=== PATIENT | female | born 1945 | race Caucasian/White ===

== ENCOUNTER 2021-11-14 11:15 | Outpatient (CLI) | payer MEDICARE, SELFPAY ==
--- OUTSIDE RECORDS SUMMARY | 2021-10-17 09:14 | XMS_ITS | Continuity of Care Document ---
:1945 Author Care Team Providers Name Role Phone NAKUL Yen Attending Physician NAKUL Yen Primary Care Physician Allergies, Adverse Reactions, Alerts Allergen Type Severity Reaction Last Updated Verified Status Penicillin Allergy Unknown childhood March Yes Active reaction 2020 Social History Smoking Status Status Start Date End Date Date of Observat ion Never smoked tobacco March 2:34pm (finding) Observation Status Observation Response Date of Response Nonsmoker July 26, 2017 1:34 pm Does not use illicit drugs July 26 1:34pm Rarely consumes alcohol July 26, 2017 1:34pm Additional Data Assigned Sex Female Problems Active Problems Medical Problem Onset Date Status Hypertension Active Hypercholesteremia Active Osteopenia Active Osteoarthritis Active Tinnitus Active Hiatal hernia with GERD Active Plantar fasciitis Active CAD (coronary artery disease) Active Venous insufficiency Active Iron deficiency anemia Resolved Urinary frequency Active Memory loss Active Thyroid nodule Active History of bilateral cataract Active extraction S/P section 1974 Active S/p total knee replacement, bilateral 2007 Ac tive S/P tonsillectomy and adenoidectomy Acti ve S/P tubal ligation Active History of colonoscopy Active Inactive/Resolved Problems Medical Problem Onset Date Status history of thyroid biopsy Resolved Medications Medication Status Dose Units Route Directions Qty Days Start End Ins tructions Date Date Acetaminophen Active 650 MG PO (Tylenol 8 Hour Arthritis) 650 Mg TAB Atorvastatin Active 40 MG PO Bedtime 90 Decembe Calcium r 2020 9:49am Calcium/Vitam Active 1 TAB PO Daily 100 in D (Calcium Carbonate/Vit dorsey D) 600 Mg/400 Unit TAB Clindamycin Active 2 CAP PO Once as 4 May Take 2 capsules approximately 1 hr prior to dental Hcl needed 2018 9:47am Cyclosporine Active 1 DROP BOTH Twice A Day 60 (Restasis) EYES 0.05 % EMU Cyclosporine Active (Ophth) (Restasis Multidose) 0.05 % EMU Donepezil Active Hydrochloride Meloxicam Active 7.5 MG PO Daily y 2021 11:33am Noxrk-6-Kitn Active 1200 MG PO Daily 100 Ethyl Esters (Fish Oil) 1,200 Mg CAP Omeprazole Active 40 MG PO Daily May 13, 2021 3:38pm Tolterodine Active 4 MG PO Daily Tartrate y , (Tolterodine 2021 Tartrate Er) 2:59pm 4 Mg CAP Vitamin E Active 400 UNIT OR Atorvastatin Disconti 40 MG PO Bedtime January Decemb Calcium nued , er 2019, 1:28pm 2020 9:49am Atorvastatin Disconti 40 MG PO Bedtime Octobe Due for follow Calcium nued er r up and repea t , , labs. 2019 2019 6:27am 1:28pm Atorvastatin Disconti 40 MG PO Bedtime November Calcium nued , theresa 2018, 10:09am 2019 6:27am Atorvastatin Disconti 40 MG PO Bedtime November Follow-up labs Calcium nued , , needed for 2018 2018 future 12:57pm 10:09a refills. m Atorvastatin Disconti 40 MG PO Bedtime October F ollow-up labs Calcium nued , , needed for 2018 2018 future 8:01am 12:57p refills. m Atorvastatin Disconti 40 MG PO Bedtime October Calcium nued , 2017 4:01pm 8:01am Atorvastatin Disconti 40 MG PO Bedtime October Calcium nued 2017 4:00pm 4:01pm Atorvastatin Disconti 40 MG PO Bedtime 22 November Calcium nued 2017 4:00pm Clindamycin Disconti 2 CAP PO Once as July [place] e 2 capsules approximately 1 hr prior to dental Hcl nued needed , , procedure. 2017 2018 10:47am 9:47am Clindamycin Disconti 300 MG PO Three Times 14 August Hcl nued A Day as 2017 10:47a m Covid-19 Disconti 30 MCG IM Once 1 b (Sars-Cov-2) nued r 30, er Mrna Vir 2020, (Pfizer-Biont 1:56pm 2020 ech Covid-19) 1:59pm 30 Mcg/0.3 Ml INJ Donepezil Disconti 5 MG PO Every November Hydrochloride nued Morning , 2017 2:26pm 10:09a m Donepezil Disconti 5 MG PO Bedtime November Hydrochloride nued , 2017 2:24pm 2:26pm Ferrous Disconti 325 MG PO Daily 100 Octobe Sulfate nued r 2019 10:18a m Influenza Disconti 0.7 ML IM Once Januaryobe Virus Vac nued , r Split High 2019, (Fluzone 10:52am 2019 High-Dose Pf 12:09p 2019 0.7 Ml) m 1 Inj INJ Influenza Disconti 0.5 ML IM Once Januaryobe Virus Vaccine nued , r (Fluzone 2017, High-Dose (65 1:02pm 2018 Yrs And 1:10pm Older) ) 1 Inj INJ Influenza Disconti 0.5 ML IM Once Januaryobe Virus Vaccine nued , r 7th, Split 2018 2018 (Fluzone 11:28am 11:30a High-Dose Pf m 2018 0.5 Ml) 1 Inj INJ Influenza Disconti 0.5 ML IM Once 1 Novemb Virus Vaccine nued r 10th, er Split 2017 01, (Fluzone 9:05am 2016 High-Dose Pf 9:08am 2016 0.5 Ml) 1 Inj INJ Meloxicam Disconti 7.5 MG PO Daily 90 Novemua nued r 10th, ry 2020, 2:47pm 2021 11:33a m Meloxicam Disconti 7.5 MG PO Daily January Novemb nued , er 2020 01, 10:53am 2020 2:47pm Meloxicam Disconti 7.5 MG PO Daily November Octobe nued , r 2019, 7:53am 2019 10:53a m Meloxicam Disconti 7.5 MG PO Daily 90 ua [place] nued y 2019 9:47am 7:53am Meloxicam Disconti 7.5 MG PO Daily 90 Septemb Februa nued er ry , 2018 7:52am 9:47am Meloxicam Disconti 7.5 MG PO Daily 90 Februar Septem nued y , theresa 2019 01, 2:34pm 2018 7:52am Meloxicam Disconti 7.5 MG PO Daily 30 April Februa nued , ry 2018, 1:56pm 2018 2:34pm Omeprazole Disconti 40 MG PO Daily Januaryuar Est formerly [facility] care nued , y for further 2020 18, refills. 11:29am 2021 3:38pm Omeprazole Disconti 40 MG PO Daily Januaryobe nued , r 2019, 10:53am 2020 11:29a m Omeprazole Disconti 40 MG PO Daily Octoberobe nued , r 2019, 6:42am 2019 10:53a m Omeprazole Disconti 40 MG PO Daily October nued , 2018 8:47am 6:42am Omeprazole Disconti 40 MG PO Daily October nued , 2017 4:01pm 8:47am Omeprazole Disconti 40 MG PO Daily October nued , 2017 4:00pm 4:01pm Omeprazole Disconti 40 MG PO Daily 22 November nued 2017 4:00pm Oxybutynin Disconti 10 MG PO Daily October Chloride nued , , (Oxybutynin 2017 2018 Chloride Er) 4:01pm 3:48pm 10 Mg TAB Oxybutynin Disconti 10 MG PO Daily October Chloride nued , , (Oxybutynin 2017 2017 Chloride Er) 4:00pm 4:01pm 10 Mg TAB Oxybutynin Disconti 10 MG PO Daily 22 November Chloride nued , (Oxybutynin 2017 Chloride Er) 4:00pm 10 Mg TAB Terbinafine Disconti 250 MG PO Daily April Hcl nued , 2018 1:56pm 10:09a m Tetanus-Dipht Disconti 0.5 ML IM Once 1 [facility] Toxoids nued r 3rd, er (Td 2020 3rd, (Tetanus/Diph 10:57am 2020 theria 11:24a Toxoid) 1 Ml m INJ Tolterodine Disconti 4 MG PO Daily Tartrate nued r 10th, ry (Tolterodine 2020 12, Tartrate Er) 2:47pm 2021 4 Mg CAP 2:59pm Tolterodine Disconti 4 MG PO Daily January Tartrate nued , er (Tolterodine 2020 01, Tartrate Er) 10:53am 2020 4 Mg CAP 2:47pm Tolterodine Disconti 4 MG PO Daily November Tartrate nued , r (Tolterodine 2019, Tartrate Er) 11:41am 2019 4 Mg CAP 10:53a m Tolterodine Disconti 4 MG PO Daily November Tartrate nued y , 5th, (Tolterodine 2019 2019 Tartrate Er) 4:26pm 11:41a 4 Mg CAP m Tolterodine Disconti 4 MG PO Daily Tartrate nued r 4th, ry (Tolterodine 2018 08, Tartrate Er) 5:58am 2019 4 Mg CAP 4:26pm Tolterodine Disconti 4 MG PO Daily November Tartrate nued , er (Tolterodine 2018 07, Tartrate Er) 4:09pm 2018 4 Mg CAP 5:58am Zoster Disconti 50 MCG IM Once 1 [facility] Vaccine nued r , er Recombinant 2018, Adj 12:51pm 2018 (Shingrix) 50 12:54p Mcg/0.5 Ml m INJ Zoster Disconti 50 MCG IM Once November Vaccine nued , , Recombinant 2018 2018 Adj 10:44am 10:48a (Shingrix) 50 m Mcg/0.5 Ml INJ Immunizations Immunization Event Date Not Given Dose Hair Cutter Lot Vac cine Reason Number Number Informatio n Statement (VIS) Deta geovany COVID-19 Pfizer July 20, 1 PFIZER-BIONTFarmeto [id number] 2020 COVID-19 Pfizer August 10, 2 PFIZER-BIONTECH [id number] 2020 COVID-19 Pfizer February 26 PFIZER-BIO [id number] 2020 Herpes Zoster January 312008 Influenza February 24 Sanofi [id number] 2016 Influenza January 25 SANOFI [id number] 2017 Influenza January 30 SANOFI [id number] 2018 Influenza January 27 SANOFI [id number] 2019 Prevnar Adult July 052014 Pneumovax Adult February 242011 Shingrix December 16 GSK CONSUM [id number] 2018 Shingrix March 27 GSK CONSUM [id number] 2018 Tetanus/Diptheri March 26 MASS BIOLO [id number] a 2020 Tdap January 31 (adolescent/adul 2008 t) Advance Directives Advance Directive Response Recorded Date/Time Has patient completed a No March 28 2:34pm Health Care Directive? Insurance Providers Guarantor Santiago Bradley Address [address] [facility] [address] Contact Info. Home Phone: Payer Policy Id Coverage Id Subscriber's Subscriber Id Effective E xpiration Name Date Date Blue [id number] Santiago Bradley Medicare Ppo [id number] Plan of Treatment Future Tests Future scheduled test information is unavailable Pending Tests Pending diagnostic test information is unavailable Future Visits Future appointment information is unavailable Referrals to Other Providers Referral information is unavailable Future Procedures Procedure Name Scheduled Date STRESS Lexiscan PRAKASH Bilat Mammo Scrn Future Medications Future medication information is unavailable Patient Instructions Patient instructions are unavailable
--- NOTE | 2021-11-14 11:30 | CRLHL7_ITS ---
For Patients: As a result of the Century Cures Act, medical imaging exams and procedure reports are released immediately into your electronic medical record. You may view this report before your referring provider. If you have questions, please contact your health care provider. BILATERAL MAMMOGRAM WITH COMPUTER-AIDED DETECTION AND TOMOSYNTHESIS TECHNIQUE: CC and MLO views were obtained. These mammographic images have been obtained using full-field digital technique. These mammographic images were interpreted with the benefit of computer-aided detection. Breast Tomosynthesis was used in this interpretation. COMPARISON FILM: 08/23/2020, 01/17/2019, 04/29/2016. FINDINGS: There are scattered areas of fibroglandular density IMPRESSION: There is no radiographic evidence for malignancy. ASSESSMENT: BI-RADS Category 1: Negative RECOMMENDATION: Routine screening mammogram in 1 year. A lay language report of this examination will be provided to the patient. Aramis Orourke M.D. Diagnostic Radiologist [email or web address] TALA/tani freire/Dictated by: Aramis Orourke MD @ 11/14/2021 12:47:00 PM (Electronically Signed)
== END 2021-11-14 11:16 | disposition home or self-care (01) ==
LOC: MAMMO 11:15
PROVIDERS: PCP Physician Assistant Medical; Visit Provider Physician Assistant Medical
DX: Z12.31 Encounter for screening mammogram for malignant neoplasm of breast (principal)
CPT/HCPCS: 77063; 77067

== ENCOUNTER 2021-12-04 10:41 | Outpatient (CLI) | payer MEDICARE, SELFPAY ==
--- NOTE | 2021-12-04 11:00 | CRLHL7_ITS ---
For Patients: As a result of the Cures Act, medical imaging exams and procedure reports are released immediately into your electronic medical record. You may view this report before your referring provider. If you have questions, please contact your health care provider. INDICATION: NON-TOXIC SINGLE THYROID NODULE COMPARISON: 12/04/2020, 10/24/2020 TECHNIQUE: Jackson scale and color Doppler images were acquired of the thyroid gland. FINDINGS: The thyroid gland demonstrates diffusely heterogeneous echogenicity and has a lobular outer contour. The right lobe measures 5.7 x 2.1 x 1.8 cm and the left lobe measures 5.0 x 2.1 x 1.8 cm in size. The isthmus measures 8 millimeters. Multiple bilateral nodules are again noted bilaterally. The previously noted cystic nodule is no longer present status post aspiration previously. Stable heterogeneously hypoechoic nodules left thyroid lobe measuring 1.7 x 1.4 x 1.2 cm and 1.0 x 1.3 x 1.4 cm. Stable heterogeneously hypoechoic nodule right thyroid lobe measuring 2.6 x 1.6 x 2.3 cm. The color Doppler images demonstrate normal vascularity. There is no evidence of cervical lymphadenopathy or parathyroid mass. IMPRESSION: Stable bilateral nodules. Dictated by Aramis Orourke MD @ 12/04/2021 12:54:02 PM (Electronically Signed)
== END 2021-12-04 10:42 | disposition home or self-care (01) ==
LOC: US 10:42
PROVIDERS: PCP Physician Assistant Medical; Visit Provider Surgery
DX: E04.1 Nontoxic single thyroid nodule (principal)
CPT/HCPCS: 76536

== ENCOUNTER 2022-03-26 12:30 | Outpatient (CLI) | payer MEDICARE, SELFPAY | END 2022-03-26 12:31 | disposition home or self-care (01) | LOC: OP CLINIC 12:31 | PROVIDERS: PCP Physician Assistant Medical; Visit Provider Surgery | DX: Z12.11 Encounter for screening for malignant neoplasm of colon (principal); K63.5 Polyp of colon; K64.8 Other hemorrhoids; K52.9 Noninfective gastroenteritis and colitis, unspecified; K64.4 Residual hemorrhoidal skin tags; K57.30 Diverticulosis of large intestine without perforation or abscess without bleeding; Z86.010 Personal history of colon polyps; Z80.0 Family history of malignant neoplasm of digestive organs | CPT/HCPCS: 45380; 45385; 88305; 99153; J1200; J2250; J3010 ==

== ENCOUNTER 2022-04-01 09:45 | Outpatient (CLI) | payer MEDICARE, SELFPAY ==
[2022-04-01 14:32] LABS: Albumin* 4.3 g/dL (3.3-5.0); Chloride* 110 mmol/L (96-114); Potassium* 4.4 mmol/L (3.6-5.1); Sodium* 145 mmol/L (135-149)
[2022-04-01 14:34] LABS: Cholesterol* 170 mg/dL (90-199); Creatinine* 0.6 mg/dL (0.5-1.5); Estimated Glomerular Filt Rate 94 ml/min
[2022-04-01 14:35] LABS: Alanine Aminotransferase* 19 U/L (4-35); Alkaline Phosphatase* 70 U/L (40-150); Aspartate Amino Transferase* 31 U/L (12-35); Bilirubin Total* 0.9 mg/dL (0.1-1.5); Blood Urea Nitrogen* 16 mg/dL (7-30); Calcium* 9.6 mg/dL (8.4-10.6); Carbon Dioxide* 30 mmol/L (20-32); Glucose* 87 mg/dL (60-115); Triglycerides* 105 mg/dL (40-149)
[2022-04-01 14:36] LABS: HDL Cholesterol* 65 mg/dL (>=50); LDL Cholesterol Calculated 84 mg/dL (<100)
== END 2022-04-01 09:46 | disposition home or self-care (01) ==
PROVIDERS: PCP Physician Assistant Medical; Visit Provider Physician Assistant Medical
DX: E78.00 Pure hypercholesterolemia, unspecified (principal); I10 Essential (primary) hypertension
CPT/HCPCS: 80053; 80061

== ENCOUNTER 2022-08-06 14:01 | Outpatient (REF) | payer MEDICARE, SELFPAY ==
[2022-08-06 14:42] LABS: Basophils Percent Auto 0.5 % (0.0-3.0); Eosinophils Percent Auto 2.1 % (0.0-7.0); Hematocrit 43.3 % (33.0-51.0); Immature Granulocytes Pct Auto 0.7 %; Lymphocytes Percent Auto 32.9 % (20-44); Mean Corpuscular HGB Conc 32 gm/dL (32-36); Mean Corpuscular Hemoglobin 30 pg (26-34); Mean Corpuscular Volume 92 fL (80-100); Monocytes Percent Auto 7.1 % (0.0-11.0); Neutrophils Percent Auto 56.7 % (42.0-72.0); Platelet Count* 191 K/uL (140-440); RDW Coefficient of Variation % 13.3 % (11.5-15.5); Red Blood Count 4.72 m/uL (4.00-5.20); White Blood Count* 4.34 K/uL (4.50-11.00)
[2022-08-06 14:44] LABS: Slide Review Reflex No
[2022-08-06 14:47] LABS: Chloride* 110 mmol/L (96-114)
[2022-08-06 14:48] LABS: Sodium* 142 mmol/L (135-149)
[2022-08-06 14:49] LABS: Potassium* 3.7 mmol/L (3.6-5.1)
[2022-08-06 14:51] LABS: Carbon Dioxide* 28 mmol/L (20-32); Creatinine* 0.7 mg/dL (0.5-1.5); Estimated Glomerular Filt Rate 90 ml/min
[2022-08-06 14:52] LABS: Alanine Aminotransferase* 22 U/L (4-35); Alkaline Phosphatase* 56 U/L (40-150); Aspartate Amino Transferase* 30 U/L (12-35); Blood Urea Nitrogen* 17 mg/dL (7-30); Calcium* 9.2 mg/dL (8.4-10.6); Glucose* 90 mg/dL (60-115)
[2022-08-06 15:03] LABS: C Reactive Protein* < 0.5 mg/dL (0.5-1.0)
[2022-08-06 15:42] LABS: Vitamin B12* 758 pg/mL (243-894)
[2022-08-06 16:50] LABS: Ammonia* < 9.0 umol/L (13.1-30.0)
[2022-08-08 19:01] LABS: Folate, Serum >22.3 ng/mL (>=5.9)
== END 2022-08-06 14:02 | disposition home or self-care (01) ==
LOC: NPINS 14:01
PROVIDERS: PCP Physician Assistant Medical; Visit Provider Psychiatry & Neurology Neurology
DX: F09 Unspecified mental disorder due to known physiological condition (principal)
CPT/HCPCS: 80053; 82140; 82607; 82746; 84443; 85025; 86140

== ENCOUNTER 2022-10-13 11:19 | Outpatient (CLI) | payer MEDICARE, SELFPAY | END 2022-10-13 11:20 | disposition home or self-care (01) | LOC: FRMREF 11:20 | PROVIDERS: PCP Physician Assistant Medical; Visit Provider Physician Assistant Medical | DX: Z11.9 Encounter for screening for infectious and parasitic diseases, unspecified (principal) | CPT/HCPCS: 86618 ==

== ENCOUNTER 2022-11-19 15:15 | Outpatient (CLI) | payer MEDICARE, SELFPAY ==
--- NOTE | 2022-11-19 15:40 | CRLHL7_ITS ---
For Patients: As a result of the Cures Act, medical imaging exams and procedure reports are released immediately into your electronic medical record. You may view this report before your referring provider. If you have questions, please contact your health care provider. BILATERAL SCREENING MAMMOGRAM WITH COMPUTER-AIDED DETECTION AND TOMOSYNTHESIS TECHNIQUE: CC and MLO views were obtained. These mammographic images have been obtained using full-field digital technique. These mammographic images were interpreted with the benefit of computer-aided detection. Breast Tomosynthesis was used in this interpretation. COMPARISON FILM: 11/14/21, 08/23/20, 01/17/19. FINDINGS: The breasts are heterogeneously dense, which may obscure small masses IMPRESSION: There is no radiographic evidence for malignancy. ASSESSMENT: BI-RADS Category 1: Negative RECOMMENDATION: Routine screening mammogram in 1 year. A lay language report of this examination will be provided to the patient. Aramis Orourke M.D. Diagnostic Radiologist [email or web address] TALA/xavi / be/Dictated by: Aramis Orourke MD @ 11/20/2022 8:19:00 AM (Electronically Signed)
== END 2022-11-19 15:16 | disposition home or self-care (01) ==
LOC: MAMMO 15:16
PROVIDERS: PCP Physician Assistant Medical; Visit Provider Physician Assistant Medical
DX: Z12.31 Encounter for screening mammogram for malignant neoplasm of breast (principal); R92.2 Inconclusive mammogram
CPT/HCPCS: 77063; 77067

== ENCOUNTER 2022-12-30 12:43 | Outpatient (CLI) | payer MEDICARE, SELFPAY ==
--- NOTE | 2022-12-30 13:00 | CRLHL7_ITS ---
For Patients: As a result of the Century Cures Act, medical imaging exams and procedure reports are released immediately into your electronic medical record. You may view this report before your referring provider. If you have questions, please contact your health care provider. Indication: Low back pain. Technique: Multiplanar, multisequence MRI of the lumbar spine was performed without intravenous contrast. Comparison: Lumbar spine radiographs 12/21/2022. Findings: There are 5 lumbar type vertebral segments identified. The vertebral body heights are maintained without evidence of fracture. There is no discrete T1 hypointense marrow infiltrating process. The conus medullaris terminates at L1, normal. Cauda equina appears unremarkable. T12-L1: Small left subarticular disc protrusion with mild spinal canal narrowing. No neural foraminal narrowing. L1-2: No spinal canal or neural foraminal stenosis. L2-3: Disc bulge with superimposed small left subarticular disc protrusion. Mild spinal canal and left neural foraminal narrowing. Mild facet arthropathy. L3-4: Disc degeneration. Disc bulge coupled with ligamentum flavum thickening and facet hypertrophy result in mild spinal canal narrowing. Mild neural foraminal narrowing. L4-5: Disc degeneration. Disc bulge with small annular fissure. Minimal spinal canal narrowing. Mild neural foraminal narrowing. Moderate facet arthropathy. L5-S1: Disc degeneration. No spinal canal narrowing. Moderate neural foraminal narrowing secondary to disc bulge and facet hypertrophy. Mild facet arthropathy. Mild sacroiliac joint osteoarthritis. Peripelvic renal cysts. Impression: 1. No acute osseous injury. 2. At T12-L1, mild spinal canal narrowing. 3. At L2-3, small left subarticular disc protrusion with mild spinal canal and left neural foraminal narrowing. 4. At L3-4, mild spinal canal and neural foraminal narrowing. 5. At L5-S1, moderate neural foraminal stenosis. 6. [id number] multilevel facet arthropathy. Dictated by Sam Hammond MD @ 12/30/2022 3:18:11 PM (Electronically Signed)
--- NOTE | 2022-12-30 13:45 | CRLHL7_ITS ---
For Patients: As a result of the Cures Act, medical imaging exams and procedure reports are released immediately into your electronic medical record. You may view this report before your referring provider. If you have questions, please contact your health care provider. Indication: Thoracic spine pain. Technique: Multiplanar, multisequence MRI of the thoracic spine was performed without the use of intravenous contrast. Comparison: Thoracic spine radiograph 12/21/2022. Findings: The vertebral body heights are maintained without evidence of fracture. No marrow infiltrative process. Mild multilevel disc desiccation. Exaggerated thoracic kyphosis. No spondylolisthesis. No abnormal cord signal. T5-6: Small left subarticular disc protrusion without spinal canal or neural foraminal narrowing. T10-11: Minimal disc bulge without spinal canal or neural foraminal narrowing. T12-L1: Small left subarticular disc protrusion results in mild spinal canal narrowing. No neural foraminal narrowing. Mild spondylosis elsewhere, without overt evidence of spinal canal or neuroforaminal compromise. Multinodular thyroid. Impression: 1. No acute osseous injury. 2. Mild multilevel spondylosis. 3. No abnormal cord signal. Dictated by Sam Hammond MD @ 12/30/2022 3:14:16 PM (Electronically Signed)
== END 2022-12-30 12:44 | disposition home or self-care (01) ==
LOC: MRI 12:44
PROVIDERS: PCP Physician Assistant Medical; Visit Provider Family Medicine
DX: M54.50 Low back pain, unspecified (principal); M51.26 Other intervertebral disc displacement, lumbar region; M48.07 Spinal stenosis, lumbosacral region; M54.6 Pain in thoracic spine; S22.080A Wedge compression fracture of T11-T12 vertebra, initial encounter for closed fracture
CPT/HCPCS: 72146; 72148

== ENCOUNTER 2023-03-30 13:00 | Outpatient (RCR) | payer MEDICARE, SELFPAY ==
--- NOTE | 2022-12-24 08:53 | PT.OPE ---
PT [place] Outpatient Eval PT [facility] Outpatient Eval Start: 12/23/22 12:47 Freq: Status: Active Protocol: Document 12/23/22 12:55 HN (Rec: 12/23/22 14:21 HN [id number]) E-signed By Chen Herrera DPT Physical Therapy Outpatient Evaluation Insurance Information Recert Due Date 03/22/23 Insurance Name Medicare B Insurance Information/Comments Medicare Advantage/Blue medicare Medical Diagnosis Other fracture of unspecified thoracic vertebra, initial encounter for closed fracture. S22. 008A Low back pain, unspecified M54 . 50 Chronic pain syndrome G89. 4 Treating Diagnosis M54.51 LBP with R sided sciatica Referring MD Bran Wang Subjective Subjective Patient is a 77 year old female with low back pain with onset this summer, coinciding with when she had lymes disease. Patient reports tingling pins and needles pain down R LE Pain characteristics: every day it aches, but occasionally gets sharp pain Aggravating factors: difficulty lifting, getting in/out of car, stairs, bending twisting Easing Factors: heat, tylenol Prior level of function: independent and unlimited with all ADLs and IADLs Current limitations: difficulty lifting, getting in/out of car, stairs, bending twisting Red flags: denies hx of cancer , recent infection, numbness/ tingling, bowel/bladder changes Imaging: will receive MRI in next ~2 weeks. 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, going to lunch with friends, has dog sweetie, yorkie Pain Comments Current: 08/03 Best: 06/05 Worst: 02/02 Current Work Status Retired Occupation Retired Preferred Name [employer] Precautions Treatment Precautions/Contraindications Precautions: HTN, Bilateral hip and lumbar osteoporosis Weight Bearing Status Full Weight Bearing Therapy Limitations/Systems Review Not Limited Objective Other/Pertinent Objective Lumbar range of motion (% full range of motion) Flexion: 60 % with increased pain on return from standing Extension: 25 % with increased pain Left sidebendin % Right sidebendin% with increased pain Left rotation: 100% Right rotation: 75% with increased pain Hip range of motion (degrees): Flexion: 110 L /120 R External rotation: 35 L/ 42 R Internal rotation: 25 L with increased pain/ 35 R Manual muscle testing: Hip flexion: 3/5 L , 3/5 R Hip abduction: 3+/5 L , 3+/5 R Hip adduction: 3+/5 L , 3+/5 R Knee extension: 4/5 L , 4/5 R Knee flexion: 5/5 L , 5/5 R Ankle PF: 5/5 bilaterally ( seated) Ankle DF 5/5 bilaterally Special tests: Straight leg raise: positive on R SI compression/distraction: negative for reproduction of symptoms Sensation/Reflexes: Patellar reflex: 2+ bilaterally Achilles reflex: normal Sensation: normal light touch sensation Joint mobility: unable to complete, patient unable to lie prone Palpation: increased tenderness along T12-L3, increased tenderness along right PSIS Functional Test Performed & Score Oswestry Score: 21 / 50 or 42 % Assessment Assessment/Impression Patient is a 77 year old with complaints of low back and SI pain. Patient demonstrates impaired lumbar range of motion, decreased hip and core strength, increased pain consistent with lumbar radicular pain. The impairments impact the patients transfers, bending, twisting and lifting objects, prolonged standing and completion of ADLs and IADLs. Other contributors include bilateral hip and lumbar osteoporosis. Patient will benefit from skilled physical therapy to address the impairments and activity limitations listed above. 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 Patient will demonstrate 12 point improvement in Oswestry Disability Index in order to demonstrate decreased pain and disability related to low back pain 2. Patient will tolerate lifting 15 pounds with no increase in pain in order to carry groceries/laundry. 3. Patient will report <6/10 pain at worst in order to demonstrate decreased pain and disability related to symptoms. 4. Patient will tolerate standing >25 minutes with no increase in pain order to complete ADLs 5. Patient will demonstrate MMT 4/5 or greater in bilateral hips and LE in order to improved tolerance with ADLs and IADLs. Coordination/Communication With Referral Source Treatment Plan/Direct Interventions Electrical Stimulation,Joint Mobilization,Manual Therapy, Neuromuscular Re-ed,Self-Care/ Home Management,Therapeutic Activities,Therapeutic Exercises,Traction (Mechanical ) Frequency/Duration 1x/week for up to 12 weeks Patient Will Be Discharged From Therapy Completion of LTG(s),Skills Plateau,Independent w/HEP Evaluation Billing Untimed Code Treatment Minutes 18 Complexity Low Certification Information Initial Certification Date 12/23/22 Ending Certification Date 03/22/23 Provider Signature Shows Agreement With POC & Medical Necessity Physician Signature & Date Requested Please Sign/Date Here Physician Comment/Change : Physician NPI Number #
== END 2023-04-16 17:04 | disposition home or self-care (01) ==
PROVIDERS: PCP Physician Assistant Medical; Visit Provider Family Medicine
DX: S22.080A Wedge compression fracture of T11-T12 vertebra, initial encounter for closed fracture (principal); M54.50 Low back pain, unspecified; G89.4 Chronic pain syndrome; M54.31 Sciatica, right side; Z51.89 Encounter for other specified aftercare
CPT/HCPCS: 97110; 97140; 97161

== ENCOUNTER 2023-05-28 11:35 | Outpatient (CLI) | payer MEDICARE, SELFPAY | END 2023-05-28 11:36 | disposition home or self-care (01) | LOC: NFLDREF 05-31 06:02 | PROVIDERS: PCP Physician Assistant Medical; Referring Provider Physician Assistant Medical; Visit Provider Physician Assistant Medical | DX: E78.00 Pure hypercholesterolemia, unspecified (principal); D50.9 Iron deficiency anemia, unspecified; I10 Essential (primary) hypertension; M81.0 Age-related osteoporosis without current pathological fracture; H93.19 Tinnitus, unspecified ear; E04.1 Nontoxic single thyroid nodule; I25.10 Atherosclerotic heart disease of native coronary artery without angina pectoris; R41.3 Other amnesia; N32.81 Overactive bladder; K21.9 Gastro-esophageal reflux disease without esophagitis; K44.9 Diaphragmatic hernia without obstruction or gangrene | CPT/HCPCS: 80053; 80061; 84443 ==

== ENCOUNTER 2023-07-07 12:46 | Outpatient (CLI) | payer MEDICARE, SELFPAY ==
--- NOTE | 2023-07-07 13:00 | US_ITS ---
Patient: SANTIAGO BRADLEY Facility:?[facility] RIS Patient ID:?[id number] Site Patient ID:?[id number]. Site :?[id number] Study:?US-Thyroid -07/07/2023 1:42:47 PM Ordering Physician:ARACELIS REDD Final Report: INDICATION: NONTOXIC SINGLE THYROID NODULE COMPARISON: 12/04/2021 TECHNIQUE: Jackson scale and color Doppler images were acquired of the thyroid gland. FINDINGS: The thyroid gland demonstrates heterogeneous echogenicity and has a lobular outer contour. The right lobe measures 6.1 x 1.9 x 2.5 cm and the left lobe measures 5.6 x 1.9 x 1.9 cm in size. The isthmus measures 5.6 millimeters. Mostly solid nodule inferior pole left thyroid lobe measures 1.4 x 1.2 x 8.3 cm, previously measuring 1.3 x 1.4 x 1.0 cm. Solid and cystic nodule midportion left thyroid lobe measuring 2.1 x 1.4 x 1.6 cm, previously measuring 1.4 x 1.2 x 1.7 cm. Solid and cystic nodule lower pole right thyroid lobe measuring 2.8 x 1.7 x 2.4 cm, previously measuring 2.3 x 1.6 x 2.6 cm. The color Doppler images demonstrate normal vascularity. There is no evidence of cervical lymphadenopathy or parathyroid mass. IMPRESSION: 2.8 cm right thyroid lobe nodule, similar to the prior study. 2.1 cm nodule midportion left thyroid lobe has increased in size, previously measuring 1.7 cm. Similar inferior pole left thyroid lobe nodule measuring 1.4 cm. Dictated by Aramis Orourke MD @ 07/08/2023 7:42:42 AM Signed by:?Aramis Orourke MD @07/08/2023 7:42:42 AM (Electronic Signature)
--- NOTE | 2023-07-07 14:00 | XR_ITS ---
Patient: SANTIAGO BRADLEY Facility:?[facility] RIS Patient ID:?[id number] Site Patient ID:?[id number]. Site :?1945 Study:?DEXA-Bone Density DEXA - SPINE/HIPS-07/07/2023 2:31:35 PM Ordering Physician:CARLYN Final Report: DXA BONE MINERAL DENSITY STUDY Reason for exam: Osteopenia. Current height (in): 60.5. Weight (lb): 180. Menopause age: 36. Ethnicity: White. 1. Have you had a previous hip or vertebral fracture? No. 2. Have you had any fractures during your adult life which did not result from significant trauma (e.g., auto accident)? No. 3. Did either of your parents have a hip fracture? Yes. 4. Do you smoke? No. 5. Have you ever taken Glucocorticoids? No. 6. Do you have rheumatoid arthritis? No. 7. Do you have secondary osteoporosis? No. 8. Do you drink 3 or more alcoholic drinks per day? No. 9. Are you being treated for osteoporosis? Yes. 10. Have you ever taken any of the following medications: Actonel, Evista, Fosamax, Miacalcin, Reclast, Boniva, Forteo, HRT (i.e. estrogen/hormone therapy), Protelos, Prolia, Vitamin D, Calcium, other ? please specify. ANSWER: Yes, Fosamax, Vitamin D and Calcium. 11. Do you have any of the following medical conditions: Anorexia or bulimia, asthma or emphysema, end stage renal disease, hyperparathyroidism, any seizure disorders, cancer, inflammatory bowel diseases, hysterectomy, other ? please specify. ANSWER: Not provided. 12. What was your maximum height (inches)? 61. 13. Do you perform weight bearing exercise regularly? No. 14. Do you regularly consume dairy products? Yes. 15. Do you drink caffeinated beverages? Yes. If female: 16. At what age did your period start? 12. 17. Are you premenopausal? No. 18. How many full term pregnancies have you had? 1. 19. Have you ever missed your period for more than 6 months in a row (not including or menopause)? Yes. TECHNIQUE: Bone mineral density study was performed using the Bunch. FINDINGS: The results of the study expressed as bone mineral density (BMD) are as follows: Lumbar spine L2 to L4: BMD: 1.053 g/cm2. T-score: -0.2. Z-score: 2.4. Neck Left: BMD: 0.549 g/cm2. T-score: -2.7 . Z-score: -0.5. Right: BMD: 0.562 g/cm2. T-score: -2.6 . Z-score: -0.4. Total Left: BMD: 0.730 g/cm2. T-score: -1.7. Z-score: 0.2. Right: BMD: 0.661 g/cm2. T-score: -2.3 . Z-score: -0.4. IMPRESSION: Osteoporosis. *Comparison exams done prior to 09/2019 were performed on different unit, NICO. COMPARISON: Compared with scan of 04/16/2021, the bone mineral density has increased by 5.4 percent at the spine and increased by 3.3 percent at the hip. Aramis Orourke M.D. Diagnostic Radiologist [email or web address] TALA/[email or web address]/[email or web address] D& Transcribed: 6:33 p.m. SP/Dictated by: Aramis Orourke MD @ 07/07/2023 4:32:00 PM JOSE L/Dictated by: Aramis Orourke MD @ 07/07/2023 4:32:00 PM Signed by:?Aramis Orourke MD @07/08/2023 5:40:36 AM (Electronic Signature)
== END 2023-07-07 12:47 | disposition home or self-care (01) ==
LOC: US 12:47
PROVIDERS: PCP Physician Assistant Medical; Visit Provider Physician Assistant Medical
DX: E04.1 Nontoxic single thyroid nodule (principal); M85.89 Other specified disorders of bone density and structure, multiple sites; M81.0 Age-related osteoporosis without current pathological fracture
CPT/HCPCS: 76536; 77080

== ENCOUNTER 2023-08-04 09:52 | Outpatient (CLI) | payer MEDICARE, SELFPAY ==
--- NOTE | 2023-08-04 10:15 | US_ITS ---
Patient: SANTIAGO BRADLEY Facility:?[facility] RIS Patient ID:?[id number] Site Patient ID:?[id number]. Site :?1945 Study:?US-Thyroid Procedure DR DYER TO READ-08/04/2023 10:57:55 AM Ordering Physician:ARACELIS REDD Final Report: INDICATION : Increased size of thyroid nodules TECHNIQUE : Ultrasound-guided fine needle aspiration of thyroid nodule, 1 nodule on the left and 1 nodule on the right. Comparison : 07/07/2023 FINDINGS : PROCEDURE: After the informed consent and time-out, multiple fine needle aspirations were obtained from the thyroid nodule on the right and from the thyroid nodule on the left. Fine needle performed. 25 gauge needles were used. 2.8 cm right thyroid lobe nodule biopsied and 2.1 cm left thyroid lobe nodule biopsied. Lidocaine was used for local anesthesia. The preliminary cytology was adequate for interpretation. Real-time imaging was used for guidance and needle placement. Post imaging ultrasound demonstrates no immediate complication. IMPRESSION : Successful fine needle aspiration of left thyroid nodule and right thyroid nodule. Dictated by Aramis Dyer MD @ 08/05/2023 9:26:28 AM Signed by:?Aramis Dyer MD @08/05/2023 9:26:28 AM (Electronic Signature)
== END 2023-08-04 09:53 | disposition home or self-care (01) ==
LOC: US 09:52
PROVIDERS: PCP Physician Assistant Medical; Visit Provider Physician Assistant Medical
DX: E04.1 Nontoxic single thyroid nodule (principal)
CPT/HCPCS: 10005; 10006; 88173

== ENCOUNTER 2023-08-11 10:13 | Outpatient (CLI) | payer MEDICARE, SELFPAY | END 2023-08-11 10:14 | disposition home or self-care (01) | PROVIDERS: PCP Physician Assistant Medical; Visit Provider Surgery | DX: E04.1 Nontoxic single thyroid nodule (principal) | CPT/HCPCS: 84439; 84443 ==

== ENCOUNTER 2023-08-18 19:08 | Outpatient (CLI) | payer MEDICARE, SELFPAY ==
--- NOTE | 2023-09-01 11:34 | W.PM.SLEEP ---
Sleep Study Details Details Interpreting Provider: Rachel Date of Sleep Study: 08/18/23 Sleep Study Details: STUDY TYPE:? Home unattended ? BMI:? 33.1 ORDERING PROVIDER:? Rachel INDICATION:? Concerns about sleep apnea ? SLEEP SUMMARY:? 549.7 minutes monitored RESPIRATORY SUMMARY:? AHI CMS guideline 7.9, AHI rule 1A guideline 8.4 Low oxygen 83 0.9% of study oxygen less than 90% Snoring 68.6% PERIODIC LIMB MOVEMENTS OF SLEEP:? Not recorded CARDIAC:? Range 48-106, mean 64.5 IMPRESSION:? Mild obstructive sleep apnea RECOMMENDATION: If patient is symptomatic treatment options include AutoSet CPAP, dental appliance and/or weight loss.
== END 2023-08-18 19:09 | disposition home or self-care (01) ==
LOC: SLEEP 19:09
PROVIDERS: PCP Physician Assistant Medical; Visit Provider Otolaryngology
DX: G47.33 Obstructive sleep apnea (adult) (pediatric) (principal)
CPT/HCPCS: 95806

== ENCOUNTER 2023-08-24 07:55 | Outpatient (CLI) | payer MEDICARE, SELFPAY ==
--- NOTE | 2023-08-24 09:29 | W.ANESCHARGE ---
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
--- NOTE | 2023-08-24 11:33 | W.ANESCHARGE ---
Anesthesia Charges Start Date/Time Anesthesia Start Date: 08/24/23 Anesthesia Start Time: 08:46 Stop Date/Time Anesthesia Stop Date: 08/24/23 Anesthesia Stop Time: 09:10 Summary Extremes of Age - Over 70 or under 1: MDA
== END 2023-08-24 07:56 | disposition home or self-care (01) ==
LOC: OP CLINIC 07:55
PROVIDERS: PCP Physician Assistant Medical; Visit Provider Surgery
DX: R13.10 Dysphagia, unspecified (principal)
CPT/HCPCS: 00731; 43239; 88305; 99100; J2704

== ENCOUNTER 2023-08-26 10:59 | Outpatient (CLI) | payer MEDICARE, SELFPAY ==
--- NOTE | 2023-08-26 11:15 | FL_ITS ---
Patient: SANTIAGO BRADLEY Facility:?[facility] Patient ID:?[id number] Site Patient ID:?[id number]. Site :?1945 Study:?XRay-Abdomen Barium swollow modified to donnie-08/26/2023 11:24:22 AM Ordering Physician:MINH Final Report: INDICATION: Dysphagia TECHNIQUE: Modified barium swallow. Fluoroscopic time 71 seconds. FINDINGS/IMPRESSION: Anatomical structures are normal. Swallowing mechanism appears within normal limits. No episodes of penetration or aspiration. No significant findings. Dictated by Aramis Orourke MD @ 08/26/2023 11:46:43 AM Signed by:?Aramis Orourke MD @08/26/2023 11:46:43 AM (Electronic Signature)
--- NOTE | 2023-08-26 14:17 | SLP.EVAL ---
Dr. Bassett Please review, sign and return Thank you Marisol Hooper ROLL HAULER ROLL HAULER Eval ROLL HAULER Eval Start: 08/26/23 12:34 Freq: Status: Active Protocol: Document 08/26/23 12:35 HJS (Rec: 08/26/23 12:43 HJS Desktop) E-signed By Marisol Hooper CCC, ROLL HAULER ROLL HAULER System Review History & Reason For Referral Type of Speech Evaluation Modified Barium Swallow Evaluation Rehabilitation Order Evaluation Date of Order 08/11/23 Reason for Referral intermittent swallowing difficulty Treatment Diagnosis dysphagia Vision Information Vision Status Patient wears glasses Patient Orientation Orientation & Mental Status Within normal ROLL HAULER Initial Assessment/POC Subjective Information Subjective/Pain Comment Patient independently ambulated to the xray suite. Assessment & Impression Assessment/Impression Patient is a 78 year old female referred for a modified barium swallow study due to intermittent difficulty swallowing. She reports that feeling of food getting stuck. She denies any feeling of aspiration. ORAL MOTOR FUNCTIION AND DENTITION Patient exhibits good tongue and lip movement and adequate dentition. THIN LIQUID Patient took several sips of thin liquid by cup. She was able to control the bolus and initiate a timely swallow with no penetration or aspiration on any trial. PUREE Patient given a teaspoon of puree. She was able to manipulate and swallow with no penetration, aspiration or pharyngeal residue. MUFFIN AND COOKIE WITH BARIUM PUREE Patient given separate trials of muffin and cookie each mixed with barium puree. She was able to chew both consistencies and swallow with no penetration, aspiration or pharyngeal residue. IMPRESSIONS AND RECOMMENDATIONS Patient exhibits a safe, functional oral pharyngeal swallow. She was able to manipulate and swallow all consistencies without difficulty and no penetration or aspiration. The radiologist noted some slowness in her esophageal clearing but it did eventually clear. The residue in the esophagus could be the cause of her feeling of food sticking. Recommended to patient that she take small bites, chew well and alternate solids and liquids. The images and recommendations were reviewed with the patient . Therapist Signature & License # I Certify That Therapy Services Provided Therapist Signature & License Number Marisol Hooper, CAPO-ROLL HAULER, # [id number] Physician Signature Signature of Physician Indicates Medically Needed Services Physician Signature & Date Required Please Sign/Date Here Speech/Language Pathology Billing Units Billing Units Eval Swallow Motion Fluoro 1
== END 2023-08-26 11:00 | disposition home or self-care (01) ==
LOC: RAD 11:00
PROVIDERS: PCP Physician Assistant Medical; Visit Provider Surgery
DX: R13.10 Dysphagia, unspecified (principal)
CPT/HCPCS: 74230; 92611

== ENCOUNTER 2023-10-07 09:40 | Outpatient (CLI) | payer MEDICARE, SELFPAY | END 2023-10-07 09:41 | disposition home or self-care (01) | LOC: RAD 09:40 | PROVIDERS: PCP Physician Assistant Medical; Visit Provider Internal Medicine Cardiovascular Disease | DX: R07.9 Chest pain, unspecified (principal); I35.1 Nonrheumatic aortic (valve) insufficiency; I34.0 Nonrheumatic mitral (valve) insufficiency; I44.1 Atrioventricular block, second degree | CPT/HCPCS: 93306 ==

== ENCOUNTER 2023-11-09 12:39 | Outpatient (CLI) | payer MEDICARE, SELFPAY ==
[2023-11-09 13:50] VITALS: BP 143/91; PULSE 85
--- NOTE | 2023-11-09 14:01 | W.PM.STED ---
Stress Test Note Date Date Seen: 11/09/23 Date of test: 11/09/23 Providers Referring provider: Yael Yen Primary care provider: Yael Yen Stress test physician: Betty Osorio Stress Test Note Stress test ordered: Stress Echo Indication for test: First-degree AV block, history of abnormal calcium score Stress test medicine: None Results discussion: Resting EKG: Sinus rhythm, rate 71 beats per minute. LA interval not calculated but patient does have history of 1st degree heart block on prior EKGs. Resting blood pressure: 163/82. Stress test: Patient is consented on stress test ordered and agrees to proceed. Patient followed standard Sammy protocol treadmill exercise stress test. She started out with exercise with concerns for her ability to walk on the treadmill, gait being somewhat unsteady. We did other sports coach or instructor her on appropriate posture, did feel like she could continue in the 1st stage. As we were coming to the 2nd stage, patient did not feel like she would be able to go any faster, thus, only 1st stage was completed. I personally did not sense that this patient was going to be safe going at a higher speed and incline, did agree with her decision to stop. She did have an equivalent of 4.4 Mets at this level of activity. She did get a maximum heart rate of 159 beats per minute which was 130% of her calculated target heart rate of 122. Occasional PVC seen in recovery but no arrhythmia. No diagnostic ischemic change noted. Blood pressure was done right after patient stopped exercising as nursing staff was needing to be right beside her assisting her on the treadmill, rate pressure product around 24,776. Patient felt dizzy and short of breath but no chest pain. Impression: Suboptimal stress echo with patient only able to exercise 3 minutes: We will have to see what the echo images as read by the ball sorter show, see if they feel this is adequate enough test with what they were visualizing on the echo. In the future, believe Sarah should likely have chemical testing as she is not going to tolerate treadmill testing. If there is significant concern for underlying coronary artery disease, consider having Lexiscan ordered. Will await echo images in ultimately defer to her primary care provider on further decision making. Patient is discharged from the stress test in stable condition.
== END 2023-11-09 12:40 | disposition home or self-care (01) ==
LOC: STRESS 12:39
PROVIDERS: PCP Physician Assistant Medical; Visit Provider Family Medicine
DX: I44.1 Atrioventricular block, second degree (principal); Z01.810 Encounter for preprocedural cardiovascular examination
CPT/HCPCS: 93016; 93325; 93351

== ENCOUNTER 2024-01-18 08:51 | Outpatient (CLI) | payer MEDICARE, SELFPAY ==
--- OUTSIDE RECORDS SUMMARY | 2024-01-18 08:54 | XMS_ITS | Encounter Summary ---
Author Organization [facility] Address [address] [place] [address]. [place] [address] Care Team Providers Care Interior Block Wirer Name Role Phone Bg Calderon MD Primary Care Provider [phone] Ezra Hess DPM Unavailable [phone] Mimi Hernandez DPM, Podiatry /Foot and Ankle Surgery Unavailable Reason for Visit * Reason Comments Refill Request Encounter Details Date Type Department Care Team (Late st Contact Info) Description 07/13/2011 [facility] [address] [place] [address]. [address] [place] [address] Hakeem Viera MD [address] [place] [id number] Refill Request Social History Tobacco Use Types Packs/Day Years Used Date Smoking Tobacco: Never Alcohol Use Standard Drinks/Week Comments No 0 (1 standard drink = 0.6 oz pur e alcohol) Sex and Gender Information Value Date Recorded Sex Assigned at Not on file Gender Identity Not on file Sexual Orientation Not on file documented as of this encounter Plan of Treatment Not on file documented as of this encounter Visit Diagnoses Diagnosis HTN (hypertension) Unspecified essential hypertension documented in this encounter Care Teams Interior Block Wirer Relationship Specialty Start Date End Date Bg Calderon MD PCP - General 04/29/16 Ezra Hess DPM [address] [facility] [address] [place] [address] Assigned Musculoskeletal Provider 09/22/20 11/23/20 Mimi Hernandez, ALE, Podiatry/Foot and Ankle Surgery [address] [facility] [address] [place] [address] Assigned Musculoskeletal Provider 11/24/20 05/22/22 documented as of this encounter
--- OUTSIDE RECORDS SUMMARY | 2024-01-18 08:54 | XMS_ITS | Clinical Summary ---
Author Organization [facility] Address [address] [place], [place] [address]. [place] [address] Care Team Providers Care Staff Nurse Icu Resource Team Name Role Phone Bg Calderon MD Primary Care Provider [phone] Allergies Active Allergy Reactions Criticality Noted Date Comments Penicillins Rash 11/26/2006 Other reaction(s): Other - Describe In Comment Field Hands and feet get red and swollen. Juan Banda MANAGER BIOLOGICS 2:40 PM 03/18/2012 Medications Medication Sig Dispensed Refills Start Date End Date Status Calcium Carbonate-Vitamin D (CALCIUM + D PO) Reported on 06/29/2016 Active VITAMIN E NATURAL PO Take 400 Units by mouth Active oxybutynin (DITROPAN) 5 MG tablet Take 5 mg by mouth 2 times daily Active sulfamethoxazole-trime thoprim (SMZ-TMP DS) 800-160 MG per tablet Take 1 tablet by mouth 2 times daily Reported on 06/29/2016 Active [place]-3 Fatty Acids (FISH OIL) 1200 MG CAPS Take 1,200 mg by mouth daily Active clindamycin (CLEOCIN) 300 MG capsule Take 300 mg by mouth as needed Reported on 06/29/2016 Active atorvastatin (LIPITOR) 40 MG tablet Reported on 06/29/2016 07/30/2014 Active doxycycline (VIBRA-TABS) 100 MG tablet Reported on 06/29/2016 02/28/2016 Active omeprazole (PRILOSEC) 40 MG capsule 02/13/2016 Active tolterodine ER (DETROL LA) 4 MG 24 hr capsule 08/26/2020 Ac tive RESTASIS MULTIDOSE 0.05 % ophthalmic emulsion 07/25/2020 Active [place]-3 Fatty Acids (FISH OIL) 1200 MG capsule Take 1,200 mg by mouth Active silver sulfADIAZINE (SILVADENE) 1 % external creamIndications:Dystr ophic nail Applied to great toe nail procedure sites twice daily with dressing changes 85 g 09/19/2020 Active silver sulfADIAZINE (SILVADENE) 1 % external creamIndications:Follo w up Apply topically 2 times daily 25 g 1 11/15/2020 Active Active Problems Problem Noted Date Diagnosed Date Ingrowing nail 04/03/2013 S/P TKR (total knee replacement) 02/27/2008 Overview: (Problem list name updated by automated process. Provider to review and confirm.) Aftercare following joint replacement 02/27/2008 Immunizations Name Administration Dates Next Due TDAP Vaccine (Adacel) 01/31/2009 Family History Medical History Relation Comments Cancer - colorectal Father at age 68 Lymphoma Mother Cervical Cancer Sister Relation Status Comments Father Mother Sister Social History Tobacco Use Types Packs/Day Years Used Date Smoking Tobacco: Never Smokeless Tobacco: Never Tobacco Cessation:Counseling Given: No Alcohol Use Standard Drinks/Week Comments No 0 (1 standard drink = 0.6 oz pur e alcohol) Adolescent Education Answer Date Record ed Getting School Help Needed Not on file 01/17 Sex and Gender Information Value Date Recorded Sex Assigned at Not on file Gender Identity Not on file Sexual Orientation Not on file Last Filed Vital Signs Vital Sign Reading Time Taken Comments Blood Pressure 158/74 08/11/2023 9:25 AM CDT Pulse 57 06/29/2016 7:10 PM FINGERNAIL SCULPTOR Temperature 36.6 ??C (97.8 ??F) 06/29/2016 7:10 PM CS T Respiratory Rate 18 10/20/2013 9:05 AM CDT Oxygen Saturation 97% 06/29/2016 7:10 PM FINGERNAIL SCULPTOR Inhaled Oxygen Concentration - - Weight 82.3 kg (181 lb 6.4 oz) 11/15/2020 1:25 P M CDT Height 156.2 cm (5' 1.5) 11/15/2020 1:25 PM CDT Body Mass Index 33.72 11/15/2020 1:25 PM CDT Plan of Treatment Health Maintenance Due Date Last Done Comments ADVANCE CARE PLANNING 1945 ANNUAL REVIEW OF HM ORDERS 1945 HEPATITIS C SCREENING 1964 GLUCOSE 02/19/2011 02/20/2008, 10/31/2007 LIPID 09/27/2012 09/28/2011 FALL RISK ASSESSMENT 04/29/2017 04/29/2016 DTAP/TDAP/TD IMMUNIZATION (2 - Td or Tdap) 01/31/2019 01/31/2009 RSV VACCINE (1 - 1-dose 75+ series) 2021 PHQ-2 (once per calendar year) 2023 04/29/2016 COVID-19 Vaccine (3 - season) 2023 08/10/2020, 07/20/2020 INFLUENZA VACCINE (#1) 2023 , 01/30/2019, 02/09/2018, Additional history exists DEXA 04/29/2031 04/29/2016, 06/15/2011 COLONOSCOPY Discontinued 02/20/2013, 02/20/2013 COLORECTAL CANCER SCREENING Discontinued Pneumococcal Vaccine: 65+ Years Completed 07/05/2014, 03/18/2012 MAMMO SCREENING Discontinued 04/29/2016, 09/24, 11/16/2012, Additional history exists ZOSTER IMMUNIZATION Completed 04/17/2019, 12/16/2018, 01/31/2009 CT COLONOGRAPHY Discontinued FIT Discontinued FLEX SIG Discontinued HPV IMMUNIZATION Aged Out No longer e ligible based on patient's age to complete this topic MENINGITIS IMMUNIZATION Aged Out No l onger eligible based on patient's age to complete this topic RSV MONOCLONAL ANTIBODY Aged Out No l onger eligible based on patient's age to complete this topic sDNA (Cologuard) Discontinued Procedures Procedure Name Priority Date/Time Associated Diagnosis Comments MA SCREENING BILATERAL W/ JEREMIAS Routine 04/29/2016 11:05 AM FINGERNAIL SCULPTOR Visit for screening mammogram DX BONE DENSITY Routine 04/29/2016 10:37 AM FINGERNAIL SCULPTOR Asymptomatic postmenopausal state COLONOSCOPY Routine 02/20/2013 10:25 AM CDT LIPID PROFILE Routine 09/28/2011 7:32 AM CDT Pure hypercholesterolemia BASIC METABOLIC PANEL Routine 02/20/2008 7:06 AM CDT from Last 3 Months or Most Recently Relevant to Health Maintenance Results * MA Screen Bilateral w/Jeremias (04/29/2016 11:05 AM FINGERNAIL SCULPTOR) Anatomical Region Laterality Modality Breast Bilateral Mammography Impressions 04/29/2016 11:49 AM FINGERNAIL SCULPTOR IMPRESSION: BI-RADS CATEGORY: 1 - ??NEGATIVE. RECOMMENDED FOLLOW-UP: Annual Mammography. The patient will be notified of the results. TRISTON WEI Narrative 04/29/2016 11:49 AM FINGERNAIL SCULPTOR Examination: Bilateral digital screening mammography with computer aided detection including digital breast tomosynthesis, 04/29/2016 11:05 AM. Comparison: 10/05/2014 and 11/16/2012 History: No current breast concerns. BREAST DENSITY: Scattered fibroglandular densities. COMMENTS: ??No significant change. Procedure Note Triston Wei MD - 04/29/2016 Examination: Bilateral digital screening mammography with computer aided detection including digital breast tomosynthesis, 04/29/2016 11:05 AM. Comparison: 10/05/2014 and 11/16/2012 History: No current breast concerns. BREAST DENSITY: Scattered fibroglandular densities. COMMENTS: No significant change. IMPRESSION: BI-RADS CATEGORY: 1 - NEGATIVE. RECOMMENDED FOLLOW-UP: Annual Mammography. The patient will be notified of the results. TRISTON WEI Alvaro Diallo MD IMG MAMMOGRAPHY JEFFREYE AHMET * DX Hip/Pelvis/Spine (04/29/2016 10:37 AM FINGERNAIL SCULPTOR) Anatomical Region Laterality Modality Dexa Computed Radiogr aphy Narrative 04/30/2016 11:25 AM FINGERNAIL SCULPTOR DX Hip/Pelvis/Spine Order #: [id number] Study Notes? Ericka Jasmine on 04/29/2016 10:45 AM ?? BONE DENSITOMETRY [facility] GENERAL OFFICE ASSISTANT & SURGERY- [place] [address] [place] [address] 04/29/2016 PATIENT: Tj Stoll CHART: [id number] ?? :?? 1945 AGE:?? 71 year old SEX:?? female REFERRING PROVIDER:?? Dr Diallo PROCEDURE:?? Bone density scanning was performed using DXA technology of the lumbar spine and hip.?? Scanning was performed on a [employer] scanner.?? Reporting is completed in the form of a Z-score.?? The Z-score represents the standard deviation from average bone mass based on patient of the same age.? RISK FACTORS:?? Post-menopausal, Height loss of 2 inches inches, Follow-up osteopenia CURRENT TREATMENT:?? Calcium with Vitamin D FINDINGS: ? Lumbar Spine (L1-L4) T-score:?? -1.3 ? Left Femoral Neck T-score:?? -2.5 ? Right Femoral Neck T-score:?? -2.2 ? Forearm (radius 33%) T-score:?? Lumbar (L1-L4) BMD: 1.029?Previous: 1.157? Total Hip Mean BMD: 0.705?Previous: Comparison is made to another DXA performed on the same [employer]?? machine on 06/15/2011. IMPRESSION Z score is within the expected range for age Z score is below the expected range for age David Diallo MD ?? Discussed here Alvaro Diallo MD IMG DEXA ORDERABLES * COLONOSCOPY (02/20/2013 10:25 AM CDT) Pathologist [facility] COLONOSCOPY [facility] Endoscopy Department Patient Name: Tj Stoll ? Procedure Date: 02/20/2013 10:25:06 AM ? Date of : 1945 ? Admit Type: Outpatient ? Age: 67 ? Room: 1 ? Note Status: Finalized ?Attending MD: Ernie Biggs MD ? Procedure: ?Colonoscopy Indications: ?Colon cancer screening in patient at increased ?risk: Colorectal cancer in father Providers: ?Ernie Green MD, Brittani Robert RN Referring : ? Hakeem Viera MD Medicines: ?Midazolam 2 mg IV, Fentanyl 150 micrograms IV Complications: ?No immediate complications Procedure: ?Pre-Anesthesia Assessment: ?- Prior to the procedure, a History and Physical ?was performed, and patient medications and ?allergies were reviewed. The patient is competent. ?The risks and benefits of the procedure and the ?sedation options and risks were discussed with the ?patient. All questions were answered and informed ?consent was obtained. Patient identification and ?proposed procedure were verified by the physician ?in the endoscopy suite. Mental Status Examination: ?alert and oriented. Airway Examination: normal ?oropharyngeal airway and neck mobility. Respiratory ?Examination: clear to auscultation. CV Examination: ?normal. Prophylactic Antibiotics: The patient does ?not require prophylactic antibiotics. Prior ?Anticoagulants: The patient has taken no previous ?anticoagulant or antiplatelet agents. ASA Grade ?Assessment: II - A patient with mild systemic ?disease. After reviewing the risks and benefits, ?the patient was deemed in satisfactory condition to ?undergo the procedure. The anesthesia plan was to ?use moderate sedation / analgesia (conscious ?sedation). Immediately prior to administration of ?medications, the patient was re-assessed for ?adequacy to receive sedatives. The heart rate, ?respiratory rate, oxygen saturations, blood ?pressure, adequacy of pulmonary ventilation, and ?response to care were monitored throughout the ?procedure. The physical status of the patient was ?re-assessed after the procedure. ?After obtaining informed consent, the colonoscope ?was passed under direct vision. Throughout the ?procedure, the patient's blood pressure, pulse, and ?oxygen saturations were monitored continuously. The ?Colonoscope was introduced through the anus and ?advanced to the cecum, identified by appendiceal ?orifice & ileocecal valve. The colonoscopy was ?somewhat difficult due to significant looping. ?Successful completion of the procedure was aided by ?increasing the dose of sedation medication and ?applying abdominal pressure. The patient tolerated ?the procedure fairly well. The quality of the bowel ?preparation was excellent. Withdrawl time was 12 ?minutes. ? Findings: ? The perianal and digital rectal examinations were normal. Pertinent ? negatives include normal sphincter tone and no palpable rectal lesions. ? A pedunculated polyp was found in the ascending colon. The polyp was 3 ? mm in size. The polyp was removed with a jumbo cold forceps. Resection ? and retrieval were complete. A pedunculated polyp was found in the ? transverse colon. The polyp was 3 mm in size. The polyp was removed with ? a jumbo cold forceps. Resection and retrieval were complete. Multiple ? small-mouthed diverticula were found in the sigmoid colon. ? Impression: ? - One 3 mm polyp in the ascending colon. Resected ?and retrieved. ?- One 3 mm polyp in the transverse colon. Resected ?and retrieved. ?- Diverticulosis sigmoid colon. Recommendation: ? - Use fiber, for example Citrucel, Fibercon, Konsyl ?or Metamucil. ?- Await pathology results. ?- Repeat colonoscopy in 5 years for surveillance. ? _ Ernie Green MD Signed Date: 02/20/2013 11:14:27 AM Number of Addenda: 0 Note Initiated On: 02/20/2013 10:25:06 AM Scope Withdrawal Time: 0 hours 0 minutes 0 seconds Scope Withdrawal Time: 0 hours 0 minutes 0 seconds Total Procedure Duration: 0 hours 0 minutes 0 seconds Total Procedure Duration: 0 hours 0 minutes 0 seconds RADIOLOGY RESULTS 02/20/2013 10:2 5 AM CDT Hakeem Viera MD PROCEDURES RADIOLOGY RESULTS * Lipid Profile (09/28/2011 7:32 AM CDT) Cholesterol 180 125 - 200 mg/dL [facility] HDL Cholesterol 53 > OR = 46 mg/dL [facility] Triglycerides 132 <150 mg/dL [facility] LDL Cholesterol Calculated 101 <130 mg/dL (calc) [facility] Comment: Desirable range <100 mg/dL for patients with CHD or diabetes and <70 mg/dL for diabetic patients with known heart disease. Cholesterol/HDL Ratio 3.4 < OR = 5.0 (calc) [facility] Non HDL Cholesterol 127 mg/dL (calc) [facility] Comment: Target for non-HDL cholesterol is 30 mg/dL higher than LDL cholesterol target. Blood specimen (specimen) 09/28/2011 7:32 AM CDT 09/29/2011 3:07 AM CDT Narrative Resulting Agency Comment Performing Lab Site ID: [id number] Lab Name: [facility] Address: [address] [place] [id number] Telephone Clerk: Matt Weinberg M.D. Hakeem Viera MD LAB - BLOOD ORDERABL ES Performing Organization Address City/[facility] Co de Phone Number ANGELIQUE DURBIN [address] [place] [phone] * (ABNORMAL) Basic metabolic panel (02/20/2008 7:06 AM CDT) Sodium 146(H) 133 - 144 mmol/L [facility] Potassium 3.7 3.4 - 5.3 mmol/L [facility] Chloride 106 94 - 109 mmol/L [facility] Carbon Dioxide 28 20 - 32 mmol/L [facility] Glucose 103(H) 60 - 99 mg/dL [facility] Urea Nitrogen 14 7 - 30 mg/dL [facility] Creatinine 0.69 0.52 - 1.04 mg/dL [facility] Comment:New IDMS-traceable c alibration beginning 08/25/07 GFR Estimate 87 >60 mL/min/1.7 m2 [facility] GFR Estimate If Black >90 >60 mL/min/1.7 m2 [facility] Calcium 9.6 8.5 - 10.4 mg/dL [facility] Anion Gap 13 6 - 17 mmol/L [facility] 02/20/2008 7:06 AM CDT 02/20/2008 7:23 AM CDT Usama De Leon MD LAB - BLOOD ORDERABL ES [facility] from Last 3 Months or Most Recently Relevant to Health Maintenance Care Teams Staff Nurse Icu Resource Team Relationship Specialty Start Date End Date Bg Calderon MD PCP - General 04/29/16
--- OUTSIDE RECORDS SUMMARY | 2024-01-18 08:54 | XMS_ITS | Encounter Summary ---
Author Organization [facility] Address [address] [place] [address]. [place] [address] Care Team Providers Care Spa Consultant Name Role Phone Bg Calderon MD Primary Care Provider [phone] Ezra Hess DPM Unavailable [phone] Mimi Hernandez DPM, Podiatry /Foot and Ankle Surgery Unavailable Reason for Visit * Reason Comments Refill Request Encounter Details Date Type Department Care Team (Late st Contact Info) Description 10/12/2011 [facility]-Internal Medicine [address] [place] [address]. [address] [place] [address] Hakeem Viera MD [address] [place] [id number] Refill Request Social History Tobacco Use Types [...] as of this encounter Visit Diagnoses Diagnosis Hypercholesterolemia Pure hypercholesterolemia documented in this encounter Care Teams Spa Consultant Relationship Specialty Start Date End Date Bg Calderon MD PCP - General 04/29/16 Ezra Hess DPM [id number] [facility] [address] [place] [address] Assigned Musculoskeletal Provider 09/22/20 11/23/20 Mimi Hernandez DPM, Podiatry/Foot and Ankle Surgery [address] [facility] [address] [place], [place] [address] Assigned Musculoskeletal Provider 11/24/20 05/22/22 documented as of this encounter
--- OUTSIDE RECORDS SUMMARY | 2024-01-18 08:54 | XMS_ITS | Referral Summary ---
Author Organization [facility] Address [address] [place], [place] [address]. [place] [address] Care Team Providers Care Muff Winder Name Role Phone Bg Calderon MD Primary Care Provider [phone] Allergies Active Allergy Reactions Criticality Noted Date Comments Penicillins Rash 11/26/2006 Other reaction(s): Other - Describe In Comment Field Hands and feet get red and swollen. Juan Banda CHECKER PRODUCT DESIGN 2:40 PM 03/18/2012 Medications Medication Sig Dispensed [...] 2 times daily Reported on 06/29/2016 Active [place]-3 Fatty Acids (FISH OIL) 1200 MG CAPS [...] MULTIDOSE 0.05 % ophthalmic emulsion 07/25/2020 Active [place]-3 Fatty Acids (FISH OIL) 1200 MG capsule [...] Dates Next Due TDAP Vaccine (Adacel) 01/31/2009 Social History Tobacco Use Types Packs/Day Years [...] AM CDT Pulse 57 06/29/2016 7:10 PM BOXING MACHINE OPERATOR Temperature 36.6 ??C (97.8 ??F) 06/29/2016 7:10 PM CS T Respiratory Rate 18 10/20/2013 9:05 AM CDT Oxygen Saturation 97% 06/29/2016 7:10 PM BOXING MACHINE OPERATOR Inhaled Oxygen Concentration - - Weight 82.3 kg (181 lb 6.4 oz) 11/15/2020 1:25 P M CDT Height 156.2 cm (5' 1.5) 11/15/2020 1:25 PM CDT Body Mass Index 33.72 11/15/2020 1:25 PM CDT Plan of Treatment Not on file Procedures Procedure Name Priority Date/Time Associated Diagnosis Comments MA SCREENING BILATERAL W/ JEREMIAS Routine 04/29/2016 11:05 AM BOXING MACHINE OPERATOR Visit for screening mammogram DX BONE DENSITY Routine 04/29/2016 10:37 AM BOXING MACHINE OPERATOR Asymptomatic postmenopausal state COLONOSCOPY Routine 02/20/2013 10:25 AM CDT LIPID PROFILE Routine 09/28/2011 7:32 AM CDT Pure hypercholesterolemia BASIC METABOLIC PANEL Routine 02/20/2008 7:06 AM CDT from Last 3 Months or Most Recently Relevant to Health Maintenance Results * MA Screen Bilateral w/Jeremias (04/29/2016 11:05 AM BOXING MACHINE OPERATOR) Anatomical Region Laterality Modality Breast Bilateral Mammography Impressions 04/29/2016 11:49 AM BOXING MACHINE OPERATOR IMPRESSION: BI-RADS CATEGORY: 1 - ??NEGATIVE. RECOMMENDED FOLLOW-UP: Annual Mammography. The patient will be notified of the results. TRISTON WEI Narrative 04/29/2016 11:49 AM BOXING MACHINE OPERATOR Examination: Bilateral digital screening mammography with computer [...] TRISTON WEI Alvaro Diallo MD IMG MAMMOGRAPHY RUSSELL LEO * DX Hip/Pelvis/Spine (04/29/2016 10:37 AM BOXING MACHINE OPERATOR) Anatomical Region Laterality Modality Dexa Computed Radiogr aphy Narrative 04/30/2016 11:25 AM BOXING MACHINE OPERATOR DX Hip/Pelvis/Spine Order #: [id number] Study Notes? Ericka Jasmine on 04/29/2016 10:45 AM ?? BONE DENSITOMETRY [facility] CAR RENTAL SALES ASSISTANT & SURGERY- [place] [address] [place] [address] 04/29/2016 PATIENT: Tj Stoll CHART: [id number] ?? :?? 1945 AGE:?? 71 year old SEX:?? female REFERRING PROVIDER:?? Dr Diallo PROCEDURE:?? Bone density scanning was performed using DXA technology of the lumbar spine and hip.?? Scanning was performed on a [employer] scanner.?? Reporting is completed in the form [...] to another DXA performed on the same [employer]?? machine on 06/15/2011. IMPRESSION Z score is within the expected range for age Z score is below the expected range for age David Diallo MD ?? Discussed here Alvaro Diallo MD IMG DEXA ORDERABLES * COLONOSCOPY (02/20/2013 10:25 AM CDT) COLONOSCOPY [facility] Endoscopy Department Patient Name: Tj Stoll ? Procedure Date: 02/20/2013 10:25:06 AM ? Date of : 1945 ? Admit Type: Outpatient ? Age: 67 ? Room: 1 ? Note Status: Finalized ?Attending MD: Ernie Biggs MD ? Procedure: ?Colonoscopy Indications: ?Colon cancer screening in patient at increased ?risk: Colorectal cancer in father Providers: ?Ernie Green MD, Brittani Robert RN Referring MD: ? Hakeem Viera MD Medicines: ?Midazolam 2 [...] Performing Lab Site ID: CB Lab Name: [facility] Address: [address] [place] [id number] Physicist Light And Optics: Matt Weinberg M.D. Hakeem Viera MD LAB - BLOOD ORDERABL ES Performing Organization Address [facility]/ZIP Co de Phone Number ANGELIQUE DURBIN [address] [place] [phone] * (ABNORMAL) Basic metabolic panel (02/20/2008 7:06 [...] Recently Relevant to Health Maintenance Care Teams Muff Winder Relationship Specialty Start Date End Date Bg Calderon MD PCP - General 04/29/16
--- OUTSIDE RECORDS SUMMARY | 2024-01-18 08:54 | XMS_ITS | Clinical Summary ---
Author Organization [facility] Address [place], [place] [address] Care Team Providers Care Correctional Officer Sergeant Name Role Phone YenAbhishek olvera Sen MARLEYC Primary Care Provider [phone] Bg Calderon MD Unavailable [phone] Alvaro Diallo MD Unavailable [phone] Allergies Active Allergy Reactions Criticality Noted Date Comments Penicillins Other - Describe In Comment Field 03/18/2012 Hands and feet get red and swollen. Juan Blunt SR. 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 0 03/18/2012 Active omega-3 fatty acids-vitamin E (FISH OIL) 1,000 mg cap Take by mouth. 0 03/18/2012 Active Comp.Stocking,Knee,R egular,Lrg misc As directed. Bilateral leg stocking to wear during day. 1 Each 0 07/27/2014 Active atorvastatin (LIPITOR) 40 mg tabletIndications:Hy percholesteremia Take 1 tablet by mouth at bedtime. 90 tablet 3 09/09/2016 Active omeprazole (PRILOSEC) 40 mg Delayed-Release capsuleIndications:C hronic GERD Take 1 capsule by mouth once daily before a meal. 90 capsule 3 09/09/2016 Active oxybutynin XL (DITROPAN XL) 10 mg CR tabletIndications:Ur inary incontinence in female Take 1 tablet by mouth once daily. 90 tablet 3 09/09/2016 Active ferrous sulfate 325 mg delayed release tabletIndications:Ir on deficiency anemia, unspecified Take 1 tablet by mouth 2 times daily with meals. 60 tablet 11 10/23/2016 Active clindamycin (CLEOCIN) 300 mg capsuleIndications:A ntibiotic prophylaxis for dental procedure indicated due to prior joint replacement TAKE 2 CAPSULES BY MOUTH ONE HOUR PRIOR TO DENTAL VISIT 2 capsule 6 08/10/2017 Active Active Problems Problem Noted Date Diagnosed Date Iron deficiency anemia, unspecified 09/11/2016 Overview (10/23/2016): Hgb fell 08/2016 to 11.9, low Ferritin 09/2016 Colonoscopy and EGD normal, no Celiac Sprue or H.Pylori (Dr. Angel - [facility]) 10/22/16 - Hgb to 11.6 and Ferritin/STFR with significant iron depletion - she had not started iron supplements Fe and recheck in 2 months. Healthcare maintenance 05/25/2014 Overview (12/09/2015): 40-64yo Female Routine Health Maintenance (ICSI 2007 Guidelines) Hypertension and Obesity: see chart review Aspirin prophylaxis (if indicated): No aspirin Calcium use: On Calcium+D Osteoporosis risks and prevention assessed/discussed: DXA done 08/2013 and osteopenia - on Calcium+D. Briefly on Fosamax Tobacco use/cessation (if indicated): Never Smoker Cervical CA: Per Gynecology (Dr. Diallo). Lipids (if >44yo):08/2013 - 10 year risk 6% Colon CA (if > 45yo and , or > 50yo): Colonoscopy 02/20/13 - q5yrs due father with Colon Cancer Breast CA: Mammograms with Dr. Diallo; normal 10/05/14 Vaccines (Td/TDaP; flu and Pneumovax if indicated) reviewed and discussed: Tdap 2008; See Immunizations. Osteopenia 05/25/2014 Overview (05/25/2014): DXA 08/2013: T score -2.1. And -2.0 On Calcium + D Was on Fosamax for about a year and stopped 2009. Osteoarthritis 05/25/2014 Overview (05/25/2014): Right Hip OA - Cortisone injection 05/08/14 ([facility]) Tinnitus 05/25/2014 Hiatal hernia with Associated GERD 05/25/2014 Overview (05/25/2014): Does well with sleeping sitting up Plantar fasciitis 05/25/2014 Overview (10/21/2016): No problem if not going barefoot CAD (coronary artery disease) by imaging 015 Overview (05/25/2014): CT Coronary Artery 09/2013 ([place]): Calcium score 50-75%tile. Mild stenosis <25% in LAD and circumflex. Venous insufficiency 05/25/2014 HTN (hypertension) Hypercholesteremia Overview (07/27/2014): Previous Simvastatin 20mg, changed to Atorvastatin 40mg 07/27/[address] Coronary Calcium Score Resolved Problems Problem Noted Date Diagnosed Date Resolved Date Colon cancer screening in 13 with 5 year fu, 4 05/25/2014 Encounters Date Type Department Care Team Description 12/23/2023 9:30 AM CDT Office Visit [facility] [place] [facility] [place] [facility] [address] [place] [address] Cornel Harding MD 12/23/2023 Orders Only [facility] [address] [place] [address] Cornel Harding MD 1 scan: (1-Ord) ZIO REPORT 11/25/2023 11:00 AM CDT Ancillary Procedure [facility] [address] [place] [address] 11/25/2023 10:40 AM CDT Orders Only [facility] [address] [facility] [address] [place] [address] Lab 11/25/2023 Travel 11/18/2023 Nurse/Clinic Staff Only [facility] [address] [place] [address] Rupert Marcial MD 11/18/2023 Telephone [employer] [facility] [place] [facility] [place] [facility] [place] [address] [place] [address] Rupert Marcial MD Results (Stress echo) 11/09/2023 1:00 PM CDT Ancillary Procedure [facility] [address] [place] [address] 11/09/2023 Travel from Last 3 Months Immunizations Name Administration Dates Next Due AMB Influenza, IIV4 PF (=>6 mos Flulaval,Fluzone Fluarix)(Flu Clinic Only) 02/01/2015 Influenza, High-dose Inactivated 02/16/2014 Influenza, IIV3 (Age >=3 years) 03/18/2012,01/17,03/23/2003 Influenza, IIV4 02/28/2016 Pneumococcal Poly,23-Valent (Pneumovax) 03/18/20 12 Pneumococcal conj 13-Valent (Prevnar 13) 015 Tdap 01/31/2009 Zoster (Zostavax-ZVL, live) 01/31/2009 Family History Medical History Relation Name Comments Good Health Brother Good Health Daughter Cancer-colon Father Age 69 Cancer Mother lymphoma, copd d 82 mi Good Health Sister smokes, hystere ctomy at age 40 Relation Name Status Comments Brother Alive Daughter Alive Father Mother Sister Alive Social History Tobacco Use Types Packs/Day Years Used Date Smoking Tobacco: Never Smokeless Tobacco: Never Tobacco Cessation:Counseling Given: No Alcohol Use Standard Drinks/Week Comments No 0 (1 standard drink = 0.6 oz pur e alcohol) Social Connections Answer Date Recorded Frequency of Communication with Friends and Fami ly Not on file 09/30/2023 Sex and Gender Information Value Date Recorded Sex Assigned at Not on file Gender Identity Not on file Sexual Orientation Not on file Obstetrics History Last Filed Vital Signs Vital Sign Reading Time Taken Comments Blood Pressure 123/62 10/21/2016 3:12 PM CDT Pulse 59 10/21/2016 3:12 PM CDT Temperature 36.4 ??C (97.6 ??F) 02/28/2016 12:37 PM C DT Respiratory Rate 14 03/06/2013 11:03 AM 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 Oxygen Saturation 99% 11/16/2013 8:24 AM CDT Inhaled Oxygen Concentration - - Weight 69.9 kg (154 lb) 10/21/2016 3:12 PM CDT Height 157.5 cm (5' 2) 10/21/2016 3:12 PM CDT Body Mass Index 28.17 10/21/2016 3:12 PM CDT Plan of Treatment Health Maintenance Due Date Last Done Comments Hepatitis C screening for ag e 18-79 1963 Zoster (shingles) series for age 50+ (2 of 3) 03/28/2009 01/31/2009 Depression screening for age 12+ 09/09/2017 09/10/19 17, 08/16/2015 BMI (ht and wt on same day) for age 18+ 10/21/2017 10/21/2016, 09/09/2016, 07/16/2016, Additional history exists Tetanus booster 01/31/2019 01/31/2009 RSV vaccine for adults or (1 - 1-dose 75+ series) 2021 COVID-19 vaccine series ( season) 2023 03/25/2021, 08/10/2020, 07/20/2020 Influenza for age 65+ 12/26/2023 02/28/2016 , 02/01/2015, 02/16/2014, Additional history exists Tdap Completed 01/31/2009 (Comp leted outside of [facility]), 01/31/2009 Pneumococcal series for age 65+ Completed 5, 03/18/2012 DEXA/DXA scan for age 65+ Completed 2016 (Completed outside of [facility]), 09/15/2013 Procedures Procedure Name Priority Date/Time Associated Diagnosis Comments EXTENDED HOLTER Routine 01/03/[address] CARDIAC CORONARY ARTERIES DUAL READ Routine 11/25/2023 12:12 PM CDT Coronary artery disease involving klamath coronary artery of klamath heart without angina pectoris HTN (hypertension) Chest pain, unspecified type CREATININE,ISTAT Routine 11/25/2023 10:4 6 AM CDT Pre-procedure lab exam ECHO STRESS EXERCISE WO CONTRAST Routine 11/09/2023 1:35 PM CDT 2nd degree AV block XR DXA BONE DENSITY 2 SITES AXIAL Routine 09/15/2013 9:46 AM CDT Osteoporosis Annual physical exam from Last 3 Months or Most Recently Relevant to Health Maintenance Results * EXTENDED HOLTER (01/03/2024) Cornel Harding MD CARDIAC SERVIC ES ORD * CT CARDIAC CORONARY ARTERIES DUAL READ (11/25/2023 12:12 PM CDT) Anatomical Region Laterality Modality HEART Computed Tomogra phy 11/25/2023 11:4 4 AM CDT Impressions 11/28/2023 9:41 PM CDT 1. Please see dedicated cardiac imaging report. 2. No (additional) acute or suspicious extra cardiac imaging abnormality. Please note that all CT scans at this facility use dose modulation, iterative reconstruction, and/or weight-based dosing when appropriate to reduce radiation dose to as low as reasonably achievable. Dictated by Gomez Everett MD @ 11/26/2023 2:57:08 PM (Electronic Signature) Narrative 11/28/2023 9:41 PM CDT ?[facility] ? Cardiac CT Report ??MRN: ?[id number] ?Name: ? TJ STOLL ?: ?Scan Date: ?Accession Number: ?[id number] ?Status: ?Final ? Electronically signed by Sergio Aguayo 16:16:54 VITALS HEIGHT: 62 in ?(157 cm) WEIGHT: 154 lbs ?(70 kgs) BSA: 1.71 m^2 BMI: 28 kg/m^2 BP: 123 / 62 mmHg BASELINE HR: 52 BPM HEART RHYTHM: PVCs FINAL IMPRESSION 1. Nonobstructive coronary atherosclerosis. 2. Total coronary artery calcium score 173. [place] percentile based on age, gender, and race is 66. 3. Probable small PFO. 4. No evidence of epicardial coronary artery disease to explain patient symptoms. Please see radiology section at end of report for noncardiac findings. RECOMMENDATIONS: Consider noncoronary etiologies for patient's symptoms. STUDY QUALITY: Study quality is good. CAD-RADS: CAD-RADS Classification 1 (<25% stenosis). CALCIUM SCORING: Total coronary artery calcium score 173. MACKEY percentile based on age, gender, and race is 66. DOMINANCE: Left dominant coronary artery system. LM: The LM is normal. LAD: The proximal LAD has calcified atherosclerosis. There is a <25% proximal LAD stenosis. There is no mid LAD stenosis. There is no distal LAD stenosis. D1: The first diagonal is too small to characterize. D2: The second diagonal is normal. LCX: The proximal LCx has calcified atherosclerosis. There is a <25% proximal LCx stenosis. The mid LCx has calcified atherosclerosis. There is a <25% mid LCx stenosis. The distal LCx has calcified atherosclerosis. There is a <25% distal LCx stenosis. OM1: The first obtuse marginal is too small to characterize. OM2: The second obtuse marginal is normal. OM3: The third obtuse marginal is normal. LEFT PDA: The left PDA is normal. LEFT PLB: The left posterolateral branch is normal. RCA: The RCA is normal. OTHER FINDINGS: Thoracic aorta: ??Aortic sinus maximum cusp-cusp: 32 mm. ??Ascending aorta maximum diameters: 31 x 30 mm. ??Descending thoracic aorta maximum diameters: 24 x 24 mm. Pericardium: No effusion. Left atrium: Normal contrast opacification. Atrial septum: Probable small PFO Pulmonary veins: Normal anatomy. Pulmonary trunk: 32 x 29 mm. Coronary artery plaque quantification (calculated by [facility] analysis): ??Total plaque volume is 92 mm3 ??Total percentage atheroma volume is 4.2% ??[High risk plaque burden defined by any of the following: ?Presence of >=70% diameter stenosis ?Coronary calcium score >1000 ?Coronary calcium score >300 and percentage atheroma volume >=5% ?Percentage atheroma volume >15%] CALCIUM SCORING TABLE . . ? Number of Lesions Pattern of Calcium Volume Total Score +-------+ + +--------+ + LM ? 0 LAD ?59 LCx ? 114 RCA ? 0 Ramus ? '-------+ + +--------+ ' SCAN INFO TEST TYPE: ??Calcium score, Coronary CT Angiography SCANNER MARKETING DATABASE ANALYST: ??SIEMENS SCANNER MODEL: ??BESOS DOSE REDUCTION ALGORITHM: ??Prospective/Amql-rma-piouw PHASE UNITS: ??% START PHASE: ??65 % END PHASE: ??75 % EKG GATED: ??Yes PRE-CONTRAST: ??Yes POST-CONTRAST: ??Yes 3D RECONSTRUCTION: ??Yes GENERAL ?CONTRAST AGENT ?CONTRAST AGENT USED?: ??Yes ?TYPE: ??Omnipaque 350 ?DOSE: ??84 ml ?RATE: ??6.5 ml/s ?ROUTE: ??IV ?ARM: ??Left ?BOLUS TECHNIQUE: ??Biphasic ?ADVERSE REACTION: ??No ?SERUM CREATININE: ??0.8 mg/dL ?GFR: ??73.93 ml/min/1.73m^2 ?CREATININE DATE: ?CT CONTRAST REACTION: ??None ?CONTRAST/SALINE ADMINISTRATION: ??Blended ?CONTRAST TIMING: ??Bolus Tracking Method ?MEDICATION ADMINISTERED DURING SCAN ?TYPE: ??Nitroglycerin, sublingual, B-Blockers ?NITROGLYCERIN, TOTAL DOSE: ??0.8 mg ?B-WILBERTO TYPE: ??Oral ?B-WILBERTO NAME, ORAL: ??Metoprolol tartrate ?B-BLOCKERS, ORAL DOSE: ??100 mg ?RADIATION DOSE ?DLP: ??162 ?KV: ??90 ?SETUP ?PATIENT TYPE: ??Outpatient ?REASON(S) FOR SCAN: ??Chest pain, Suspected symptomatic CAD, Other... ?OTHER, SPECIFY:: ??HTN ?REFERRING PHYSICIAN: ??RUPERT MARCIAL ?TECHNOLOGIST: ??Alana Loredo BILLING Patient Account ?[id number] ICD10 Codes ?I25.10, I10, R07.9 Report generated by [employer], a product of [employer] For Patients: As a result of the Century Cures Act, medical imaging exams and procedure reports are released immediately into your electronic medical record. ??You may view this report before your referring provider. ?? If you have questions, please contact your health care provider. OVER-READ ??OVER-READ ??OVER-READ OVER-READ: DETAILED RADIOLOGY EXTRACARDIAC OVER-READ OF CARDIAC CT 09/08/2023 TECHNIQUE: ??Please see cardiology report for technical information. ??108 cc Omnipaque 350. This exam is being performed in conjunction with the services provided by the [facility] ([facility]). CLINICAL HISTORY: ??Cardiac CT over-read. ? FINDINGS: Aorta: Normal caliber with no signs of dissection. Pulmonary arteries:No filling defects, bolus timing may somewhat limit evaluation. Mediastinum:No suspicious adenopathy. Lungs and pleural structures: Clear, no effusions Rupert Marcial MD CT * (ABNORMAL) CREATININE,ISTAT (11/25/2023 10:46 AM CDT) [facility] CREATININE, POCT 0.80 0.57 - 1.11 mg/dL 11/25/2023 10:51 AM CDT [facility] Comment:Caution: Patients ta vasyl Hydroxyurea have falsely increased iStat Creatinine results. Verify creatinine results ordering a Creatinine (52659.2) eGFR 76(L) >90 mL/min/1.7 3m2 11/25/2023 10:51 AM CDT [facility] Comment:As of 2021, eG FR is calculated by the CKD-EPI creatinine equation without race adjustment. eGFR can be influenced by muscle mass, exercise, and diet. The reported eGFR is an estimation only and is only applicable if the renal function is stable. Blood BLOOD SPECIMEN / Unknown 11/25/2023 10:46 AM CDT 11/25/2023 10:51 AM CDT Rupert Marcial MD CHEMISTRY [facility] [address] [place] [address], * ECHO STRESS EXERCISE WO CONTRAST (11/09/2023 1:35 PM CDT) EJECTION FRACTION 55 - 60% Anatomical Region Laterality Modality Ultrasound 11/09/2023 1:09 PM CDT Narrative 11/09/2023 2:05 PM CDT STRESS ECHOCARDIOGRAM TJ STOLL ?Accession#: ?? [id number] : ?1945 78 years Study Date: ?? 11/09/2023 1:09:11 PM Gender: F ? BP: ? 163/82 mmHg Height: 155.00 cm ? BSA: ?1.81 m? ? ? Weight: 82.00 kg ?Tech: ? MTS ?Referring MD: ABHISHEK YEN Site: ? [facility] Reading Location: [facility] Patient Location: Outpatient. Procedure: Stress Echo. Sammy stress echo. Indication for study: 2nd degree AV block Cardiac Rhythm: Irregular.Study quality: Fair. Final Impressions: 1. Post stress, mildly increased left ventricular size, moderate decreased global systolic function with an estimated EF of 45 to 50%. 2. Maximum stress test with 102.5% of age predicted maximum heart rate achieved. 3. Positive stress echo for ischemia. Immediately post exercise - first images (4 chamber) show global hypokinesis with reduced EF (no definite wall motion). Later images: EF improves without wall motion. Consider pharmacologic nuclear stress test to further evaluate for ischemic disease. Clinical correlation recommended. 4. Poor exercise duration and workload. 5. During stress exam the patient developed no significant symptoms. 6. See separate report for EKG interpretation. Stress Data: ? HR ?Systolic Diastolic Time Duration Minutes Seconds Baseline 65 bpm ?163 ?82 mmHg ?3 :0 ?Peak ? 146 bpm ?? 173 Max Pred HR ?142 % of Max ? 102% Double Product [id number] Echo Findings:This is a positive stress echo test for ischemia. Post stress, mildly increased left ventricular size, moderate decreased global systolic function with an estimated EF of 45 to 50%. LV regional wall motion abnormalities are not present post exercise. EKG:See separate report for EKG interpretation. Exam Protocol:The patient presents with no significant symptoms at baseline. The patient exercised 3 min 0 sec to stage I according to the Sammy stress echo protocol. Test terminated due to fatigue. 4.6 METS were achieved. The patient achieved a heart rate of 146 bpm which is 102.5% of maximum predicted heart rate. Maximum systolic blood pressure was 173 [place] [address]. Maximum stress test with 102.5% of age predicted maximum heart rate achieved. The blood pressure response was normal. Exercise duration and workload were poor. The patient developed no significant symptoms during the stress exam. Low (less than 1% annual mortality rate) non invasive risk stratification. Chamber Sizes and Function Normal left ventricular size, normal global systolic function with an estimated EF of 55 - 60%. LV regional wall motion abnormalities are not present. MEASUREMENTS AND CALCULATIONS 2-D Measurements and LV Function: HR 65 bpm . This study was interpreted by an [facility] accredited facility. ??Final ?? Procedure Note Aleida Molina MD - 11/09/2023 STRESS ECHOCARDIOGRAM TJ STOLL : 1945 78 years Study Date: 11/09/2023 1:09:11 PM Gender: F BP: 163/82 mmHg Height: 155.00 cm BSA: 1.81 m? ? ? Weight: 82.00 kg Tech: [facility] Referring MD: ABHISHEK YEN Site: [facility] Reading Location: [facility] Patient Location: Outpatient. Procedure: Stress Echo. Samym stress echo. Indication for study: 2nd degree AV block Cardiac Rhythm: Irregular.Study quality: Fair. Final Impressions: 1. Post stress, mildly increased left ventricular size, moderatedecreased global systolic function with an estimated EF of 45 to 50%. 2. Maximum stress test with 102.5% of age predicted maximum heart rateachieved. 3. Positive stress echo for ischemia. Immediately post exercise - firstimages (4 chamber) show global hypokinesis with reduced EF (no definitewall motion). Later images: EF improves without wall motion. Considerpharmacologic nuclear stress test to further evaluate for ischemicdisease. Clinical correlation recommended. 4. Poor exercise duration and workload. 5. During stress exam the patient developed no significant symptoms. 6. See separate report for EKG interpretation. Stress Data: HR Systolic Diastolic Time Duration Minutes Seconds Baseline 65 bpm 163 82 mmHg 3 :0 Peak 146 bpm 173 Max Pred HR 142 % of Max 102% Double Product [id number] Echo Findings:This is a positive stress echo test for ischemia. Poststress, mildly increased left ventricular size, moderate decreased globalsystolic function with an estimated EF of 45 to 50%. LV regional wallmotion abnormalities are not present post exercise. EKG:See separate report for EKG interpretation. Exam Protocol:The patient presents with no significant symptoms atbaseline. The patient exercised 3 min 0 sec to stage I according to [facility] stress echo protocol. Test terminated due to fatigue. 4.6 METS wereachieved. The patient achieved a heart rate of 146 bpm which is 102.5% ofmaximum predicted heart rate. Maximum systolic blood pressure was 173 mmHg[place] [address]. Maximum stress test with 102.5% ofage predicted maximum heart rate achieved. The blood pressure response wasnormal. Exercise duration and workload were poor. The patient developed nosignificant symptoms during the stress exam. Low (less than 1% annualmortality rate) non invasive risk stratification. Chamber Sizes and Function Normal left ventricular size, normal global systolic function with anestimated EF of 55 - 60%. LV regional wall motion abnormalities are notpresent. MEASUREMENTS AND CALCULATIONS 2-D Measurements and LV Function: HR 65 bpm . This study was interpreted by an [facility] accredited facility. Final Abhishek Yen PA-C ECHO ORD * XR DXA BONE DENSITY 2 SITES (09/15/2013 9:46 AM CDT) Anatomical Region Laterality Modality Spine, HIPS, HIPL, HIPR Other Impressions 09/15/2013 12:42 PM CDT 68 y.o. female with osteopenia by WHO criteria as evidenced by t score of negative 2.1 at right femoral neck. ??The patient's 10 year probability of suffering a major osteoporotic fracture is 5.5 % and the 10 year probability of suffering a hip fracture is 0.9 %. ??The risk estimate was calculated using FRAX calculator. ??All treatment decisions require clinical judgement and consideration of individual patient factors including patient preferences, comorbidities, and previous drug use. ?? Risk factors not included in the FRAX model include frailty, falls, vitamin d deficiency, increased bone turnover or interval significant decline in bone density. ?? The National Osteoporosis Foundation recommends pharmacologic treatment for patients with t scores of negative 2.5 or less, patients with prior history of fragility fractures, or patients with 10 year probability of greater than 3 % at hips or greater than 20 % of suffering major osteoporotic fractures. Recommend dietary and supplemental calcium, vitamin d supplementation if indicated, exercise and repeat bone density in 2-3 years. ? Ernie Condon M.D., [place]ell[place] Narrative 09/15/2013 12:42 PM CDT PATIENT NAME: Tj Stoll DATE: 09/15/2013 DATE OF : 1945 GENDER: female HEIGHT: 62 inches WEIGHT: 246 lbs. MENOPAUSAL STATUS: post RACE: White INDICATIONS: screening osteoporosis QUALITY OF SCAN: valid REFERRING PROVIDER: sommer RISK FACTORS: , family history of osteoporosis, inactivity PROCEDURE: Bone density scanning was performed using DXA technology of the lumbar spine and hip. Scanning was performed on a [employer] Scanner. Reporting is completed in the form of a T-score. The T-score represents the standard deviation from peak bone mass based on young healthy adult. REFERENCE T-SCORES (ISCD/WHO Classification) Greater than - 1.0 ?Normal -1.0 to - 2.5 ? Osteopenia Less than - 2.5 ? Osteoporosis FINDINGS: AP SPINE ??L1-4 BMD patient (gm/cm2) 1.174 T score equals 0 Z score equals 1.6 Prior BMD ?? % of change ?? Left Femoral Neck BMD patient (gm/cm2) 0.758 T score equals -2.0 Z score equals -0.4 Prior BMD ?? % of change ?? Right Femoral Neck BMD patient (gm/cm2) 0.751 T score equals -2.1 Z score equals -0.5 Prior BMD ?? % of change ?? Procedure Note Ernie Condon MD - 09/15/2013 PATIENT NAME: Tj Stoll DATE: 09/15/2013 DATE OF : 1945 GENDER: female HEIGHT: 62 inches WEIGHT: 246 lbs. MENOPAUSAL STATUS: post RACE: White INDICATIONS: screening osteoporosis QUALITY OF SCAN: valid REFERRING PROVIDER: sommer RISK FACTORS: , family history of osteoporosis, inactivity PROCEDURE: Bone density scanning was performed using DXA technology of thelumbar spine and hip. Scanning was performed on a [employer] Scanner. Reportingis completed in the form of a T-score. The T-score represents the standarddeviation from peak bone mass based on young healthy adult. REFERENCE T-SCORES (ISCD/WHO Classification) Greater than - 1.0 Normal -1.0 to - 2.5 Osteopenia Less than - 2.5 Osteoporosis FINDINGS: AP SPINE L1-4 BMD patient (gm/cm2) 1.174 T score equals 0 Z score equals 1.6 Prior BMD % of change Left Femoral Neck BMD patient (gm/cm2) 0.758 T score equals -2.0 Z score equals -0.4 Prior BMD % of change Right Femoral Neck BMD patient (gm/cm2) 0.751 T score equals -2.1 Z score equals -0.5 Prior BMD % of change IMPRESSION: 68 y.o. female with osteopenia by WHO criteria as evidenced byt score of negative 2.1 at right femoral neck. The patient's 10 yearprobability of suffering a major osteoporotic fracture is 5.5 % and the 10year probability of suffering a hip fracture is 0.9 %. The risk estimatewas calculated using FRAX calculator. All treatment decisions requireclinical judgement and consideration of individual patient factorsincluding patient preferences, comorbidities, and previous drug use.Risk factors not included in the FRAX model include frailty, falls,vitamin d deficiency, increased bone turnover or interval significantdecline in bone density. The National Osteoporosis Foundation recommendspharmacologic treatment for patients with t scores of negative 2.5 orless, patients with prior history of fragility fractures, or patients with10 year probability of greater than 3 % at hips or greater than 20 % ofsuffering major osteoporotic fractures. Recommend dietary and supplementalcalcium, vitamin d supplementation if indicated, exercise and repeat bonedensity in 2-3 years. Ernie Condon M.D., C.C.D. Hakeem Viera MD DEXA from Last 3 Months or Most Recently Relevant to Health Maintenance Advance Directives Documents on File Type Date Recorded Patient Legal Stenographer Expl anation Healthcare Directive 02/15/2012 2:57 PM Power of Quarry Equipment Operator 02/15/2012 2:54 PM Care Teams Correctional Officer Sergeant Relationship Specialty Start Date End Date Abhishek Yen PA-C [address] [place] [id number] PCP - General Physician Texturing Machine Fixer 09/23/23 Bg Calderon MD [address] [id number] Internal Medicine 09/23/23 Alvaro Diallo MD [address] [address] CERTIFIED PHYSICAL THERAPIST ASSISTANT Obstetrics and Gynecology 05/25/14
--- NOTE | 2024-01-18 09:15 | CRLHL7_ITS ---
For Patients: As a result of the Century Cures Act, medical imaging exams and procedure reports are released immediately into your electronic medical record. You may view this report before your referring provider. If you have questions, please contact your health care provider. BILATERAL SCREENING MAMMOGRAM WITH COMPUTER-AIDED DETECTION AND TOMOSYNTHESIS TECHNIQUE: CC and MLO views were obtained. These mammographic images have been obtained using full-field digital technique. These mammographic images were interpreted with the benefit of computer-aided detection. Breast Tomosynthesis was used in this interpretation. COMPARISON FILM: 11/19/22, 11/14/21, 08/23/20. FINDINGS: There are scattered areas of fibroglandular density IMPRESSION: There is no radiographic evidence for malignancy. ASSESSMENT: BI-RADS Category 2: Benign RECOMMENDATION: Routine screening mammogram in 1 year. A lay language report of this examination will be provided to the patient. rAamis Orourke M.D. Diagnostic Radiologist [email or web address] JOSE L/Dictated by: Aramis Orourke MD @ 01/26/2024 10:28:00 AM (Electronically Signed)
== END 2024-01-18 08:52 | disposition home or self-care (01) ==
LOC: MAMMO 08:51
PROVIDERS: PCP Physician Assistant Medical; Visit Provider Physician Assistant Medical
DX: Z12.31 Encounter for screening mammogram for malignant neoplasm of breast (principal)
CPT/HCPCS: 77063; 77067

== ENCOUNTER 2024-01-25 08:03 | Inpatient (IN) | payer MEDICARE, SELFPAY ==
[2024-01-25] VITALS (23 sets, daily range): BP systolic 112–142; BP diastolic 51–78; PULSE 57–89; RESP 14–25; TEMP 36.6–37.4; O2SAT 82–97; BMI 34.0
--- NOTE | 2024-01-25 08:29 | CRLHL7_ITS ---
For Patients: As a result of the Century Cures Act, medical imaging exams and procedure reports are released immediately into your electronic medical record. You may view this report before your referring provider. If you have questions, please contact your health care provider. INDICATION: Upper epigastric pain. Back pain. Nausea. Vomiting. TECHNIQUE: CT abdomen and pelvis acquired with 89 cc of Isovue 370 IV contrast. COMPARISON: MRI abdomen 10/29/2020. FINDINGS: Lower chest: Mild bibasilar scarring or atelectasis. No pleural or pericardial effusions. Mild cardiomegaly. Liver: Incidental cyst and hemangioma in the right hepatic lobe, unchanged. Spleen: Unremarkable. Pancreas: Unremarkable. Gallbladder and bile ducts: Cholelithiasis. Gallbladder is otherwise unremarkable. No biliary ductal dilatation. Kidneys: Bilateral parapelvic cysts, unchanged. No urolithiasis, hydronephrosis or suspicious lesion. Adrenal glands: Unremarkable. GI tract: Multiple dilated fluid-filled small bowel loops measuring up to 3.8 cm with decompressed distal small bowel loops, consistent with obstruction. A transition point is present in the mid abdomen. There are additional dilated fluid-filled small bowel loops with mesenteric stranding in the pelvis that measure up to 2.8 cm. There is diffuse ill-defined mesenteric stranding associated with the dilated small bowel loops in the upper abdomen along with small volume ascites. No pneumatosis or free intraperitoneal gas at this time. No definite nonenhancing small bowel segment. Mesenteric vasculature as imaged is patent. Lymph nodes: No pathologic lymphadenopathy. Vascular structures: Atherosclerotic disease. No abdominal aortic aneurysm. Pelvic Organs: Bladder as imaged is unremarkable. Sigmoid diverticulosis without evidence of acute diverticulitis. Bones: No acute or suspicious osseous abnormality. Degenerative changes of the spine and pelvis. IMPRESSION: 1. Small-bowel obstruction with findings concerning for multifocal transition point and/or closed loop obstruction. Diffuse mesenteric stranding and small volume ascites may reflect ischemic change. No pneumatosis or free intraperitoneal gas. Mesenteric vasculature as imaged is patent. Surgical consultation regarding further management recommended. 2. Cholelithiasis. 3. Sigmoid diverticulosis without evidence of acute diverticulitis. Small bowel obstruction discussed with Dr. Kelly by telephone at 10:32 a.m. on 01/25/2024. Dictated by Santos Ortiz MD @ 01/25/2024 10:35:38 AM Please note that all CT scans at this facility use dose modulation, iterative reconstruction, and/or weight-based dosing when appropriate to reduce radiation dose to as low as reasonably achievable. Dictated by: Santos Ortiz MD @ 01/25/2024 10:36:07 (Electronically Signed)
--- NOTE | 2024-01-25 08:33 | ED.ABDPAIN ---
HPI - Abdominal Pain General Chief Complaint: Abdominal Pain Stated Complaint: pain in abdomen back, can't keep food down Time Seen by Provider: 01/25/24 08:21 History of Present Illness HPI narrative: This 78-year-old female comes in reporting upper epigastric pain that began 2 days ago. She states that the pain radiates through to her back. She has had some nausea with vomiting initially. Now she states that she will vomit rather immediately when attempting to take any kind of food. She has been taking sips of liquids. She arrives here with normal vital signs. She does not have any diarrhea. She does not report any fever. She does not drink alcohol. Prior to this she has been in good health. Related Data Home Medications ?Medication ?Instructions ?Recorded ?Confirmed cyclosporine 0.05 % eye drops 1 drp ophthalmic (eye) Q12H 04/01/22 12/23/23 (Restasis MultiDose) calcium 600 mg-D3 20 mcg-magnesium tab PO DAILY 09/30/23 12/23/23 40 ht-ppaxhg-oadb-zinc chew tablet omega 6-yxv-ukn-fish oil 60 mg-90 1 cap PO QDAY 09/30/23 12/23/23 mg-500 mg capsule (Fish Oil) Previous Rx's ?Medication ?Instructions ?Recorded alendronate 70 mg tablet 70 mg PO QWEEK 3 months #13 tabs 05/13/23 atorvastatin 40 mg tablet 40 mg PO QDAY #90 tabs 05/28/23 lisinopril 20 mg tablet 20 mg PO DAILY #90 tabs 05/28/23 meloxicam 7.5 mg tablet 7.5 mg PO QDAY #90 tabs 05/28/23 omeprazole 40 mg capsule,delayed 40 mg PO QDAY #90 caps 05/28/23 release solifenacin 10 mg tablet 10 mg PO DAILY #90 tabs 08/25/23 amlodipine 2.5 mg tablet 2.5 mg PO QHS #90 tabs 01/04/24 Allergies Allergy/AdvReac Type Severity Reaction Status Date / Time penicillin G Allergy Verified 01/25/24 09:55 Review of Systems Status of ROS Reports: 10 or more systems reviewed and unremarkable except as noted in History and below Narrative Constitutional: No fevers, no weight gain or loss. Eyes: No discharge. No vision changes. HENT: No congestion, no sore throat, no ear pain. Cardiovascular: No chest pain, no palpitations. Respiratory: No shortness of breath, no wheezes, no cough. Gastrointestinal: No diarrhea. Abdominal pain and vomiting as described above. Genitourinary: No dysuria, no hematuria. Musculoskeletal: Normal range of motion. Skin: No rashes, no pruritis. Neurological: No dizziness, weakness, sensory change, speech change. Endo/Heme/Allergies: No bruising or bleeding. No polydipsia. Pysch: no suicidality, no anxiety, no insomnia. All other systems reviewed and are negative. PFSH PFSH Medical History Positive Lyme disease serology ?R76.8 - Other specified abnormal immunological findings in serum (ICD-10) Increased frequency of urination ?R35.0 - Frequency of micturition (ICD-10) Memory loss ?R41.3 - Other amnesia (ICD-10) History of compression fracture of spine ?Z87.81 - Personal history of (healed) traumatic fracture (ICD-10) Iron deficiency anemia ?D50.9 - Iron deficiency anemia, unspecified (ICD-10) Amnesia ?R41.3 - Other amnesia (ICD-10) Health care directive on file ?Z78.9 - Other specified health status (ICD-10) Surgical History History of ?Z98.891 - History of uterine scar from previous surgery (ICD-10) History of biopsy ?Z98.890 - Other specified postprocedural states (ICD-10) Status post tubal ligation ?Z98.51 - Tubal ligation status (ICD-10) Status post total bilateral knee replacement (2007) ?Z96.653 - Presence of artificial knee joint, bilateral (ICD-10) Status post tonsillectomy and adenoidectomy ?Z90.89 - Acquired absence of other organs (ICD-10) History of colonoscopy ?Z98.890 - Other specified postprocedural states (ICD-10) History of bilateral cataract extraction ?Z98.41 - Cataract extraction status, right eye (ICD-10) ?Z98.42 - Cataract extraction status, left eye (ICD-10) Family History (Updated 03/30/22 @ 12:23 by Sue Mcgregor) Father Colorectal cancer Mother Heart disease Lymphoma Aunt Heart disease Social History (Updated 05/28/23 @ 12:20 by Kylah Pastrana ~ CTA) Narrative: Does not use illicit drugs Nonsmoker Rarely consumes alcohol What is your current living situation?: I presently have a place to live Problems where you live: no known problems In the past 12 months, utilities in danger of being shut off: no In past 12 months, lack of transportation kept you from medical appts, meetings, work, or getting things needed for daily living: no In the past 12 mos, have been you worried that your food would run out before you had money to buy more?: never true In the past 12 mos, the food you bought just didn't last and you didn't have money to buy more?: never true Smoking Status: Never smoker Non-prescribed substance use: denies use How often does anyone, including family, friends and others, physically hurt you: never How often does anyone, including family, friends and others, insult or talk down to you: never How often does anyone, including family, friends and others, threaten you with harm: never How often does anyone, including family, friends and others, scream or curse at you: never Little interest or pleasure in doing things: not at all Feeling down, depressed, or hopeless: not at all Exam Narrative: Exam Narrative: Constitutional: Well-developed, well-nourished, no acute distress. HEENT: Normocephalic, atraumatic. Neck: Normal range of motion. Nontender. Supple. Heart: Regular. No murmurs. Normal rate. Intact distal pulses. Lungs: Clear to auscultation. No chest discomfort. No wheezes, rhonchi, or rales. Abdomen: Normal bowel sounds. Tenderness in the upper epigastric region. She does have some mild rebound tenderness. Genitalia: Deferred. Back: No midline tenderness. Normal range of motion. Extremities: Normal range of motion. No injury. Skin: Intact. No rash. Warm. No erythema or pallor. Neurologic: No altered sensation. No weakness. Alert and oriented. Psychiatric: No suicidality. No anxiety or depression. No insomnia. Nursing notes and vitals signs are reviewed. Const: Vital Signs, click to edit/add: Vital Signs - 24 hr 01/25/24 08:07 01/25/24 11:44 Temperature 97.8 F Pulse Rate [Right Pulse Oximeter] 89 84 Respiratory Rate 18 18 Blood Pressure [Ri ght Upper Arm] 115/70 136/76 Pulse Oximetry 97 96 Oxygen Delivery Me thod Room Air Room Air Course Vital Signs Vital signs: Initial Vital Signs Temperature 97.8 F 01/25/24 08:07 Temperature Source Temporal Artery Scan 01/25/24 08:07 Pulse Rate 89 01/25/24 08:07 Respiratory Rate 18 01/25/24 08:07 Blood Pressure 115/70 01/25/24 08:07 Blood Pressure Mean 85 01/25/24 08:07 Blood Pressure Position Sitting 01/25/24 08:07 Pulse Oximetry 97 01/25/24 08:07 Oxygen Delivery Method Room Air 01/25/24 08:07 Vital Signs Temperature 97.8 F 01/25/24 08:07 Pulse Rate 89 01/25/24 08:07 Respiratory Rate 18 01/25/24 08:07 Blood Pressure 115/70 01/25/24 08:07 Pulse Oximetry 97 01/25/24 08:07 Oxygen Delivery Method Room Air 01/25/24 08:07 Temperature 97.8 F 01/25/24 08:07 Pulse Rate 84 01/25/24 11:44 Respiratory Rate 18 01/25/24 11:44 Blood Pressure 136/76 01/25/24 11:44 Pulse Oximetry 96 01/25/24 11:44 Oxygen Delivery Method Room Air 01/25/24 11:44 Medications Administered Medications: Discontinued Medications Generic Name Dose Route Start Last Admin Trade Name Freq PRN Reason Stop Dose Admin Sodium Chloride 1,000 mls @ 1,000 mls/hr 01/25/24 08:30 01/25/24 10:04 0.9 % Sodium Chloride 1000 Ml IV 01/25/24 09:29 Infused .Q1H JOSIE Infusion Ondansetron HCl 4 mg 01/25/24 08:29 01/25/24 09:03 Ondansetron 2 Mg/Ml Inj IVP 01/25/24 08:30 4 mg ONCE ONE Administration MDM - Abdominal Pain MDM Narrative Medical decision making narrative: This patient comes in reporting nausea, vomiting, and upper epigastric abdominal pain. She did have some rebound tenderness. I did establish an IV and ordered CT imaging of her abdomen and pelvis. This returns with evidence of a bowel obstruction. The patient is maintaining normal vital signs. I did consult with Dr. Bassett, surgeon on-call, who reviewed images and met with the patient and recommends surgery. The patient is going directly to surgery from the emergency department and then will be admitted to the hospital. Lab Data Labs: Lab Results 01/25/24 01/25/24 01/25/24 Range/Units 08:50 08:50 08:50 WBC 8.72 (4.50-11.00) K/uL RBC 4.88 (4.00-5.20) m/uL Hgb 14.7 (12.0-16.0) gm/dL Hct 45.3 (33.0-51.0) % MCV 93 (80-100) fL MCH 30 (26-34) pg MCHC 33 (32-36) gm/dL RDW Coeff of Marshall 12.4 (11.5-15.5) % Plt Count 229 (140-440) K/uL Neut % (Auto) 78.2 H (42.0-72.0) % Lymph % (Auto) 13.6 L (20-44) % [place] % (Auto) 7.8 (0.0-11.0) % Eos % (Auto) 0.1 (0.0-7.0) % Baso % (Auto) 0.1 (0.0-3.0) % Neut # (Auto) 6.80 (1.7-7.0) K/uL Lymph # (Auto) 1.20 (0.90-2.90) K/uL [place] # (Auto) 0.70 (0.00-0.90) K/UL Eos # (Auto) 0.01 (0.00-0.50) K/uL Baso # (Auto) 0.01 (0.00-0.30) K/uL Abs Immat Gran (auto) 0.02 (0.00-0.30) K/uL Imm/Tot Granulo (auto) 0.2 % Sodium 138 (135-149) mmol/L Potassium 3.5 L (3.6-5.1) mmol/L Chloride 107 (96-114) mmol/L Carbon Dioxide 21 (20-32) mmol/L Anion Gap 10 (7-15) mEq/L BUN 32 H (7-30) mg/dL Creatinine 0.8 (0.5-1.5) mg/dL Estimated Creat Clear 35.55 Estimated GFR 76 ml/min Glucose 154 H (60-115) mg/dL Calcium 9.5 (8.4-10.6) mg/dL Total Bilirubin 1.5 Cancelled (0.1-1.5) mg/dL Direct Bilirubin 0.3 Cancelled (0.0-0.5) mg/dL AST 33 (12-35) U/L ALT (4-35) U/L Alkaline Phosphatase (40-150) U/L Total Protein (6.0-8.3) g/dL Albumin (3.3-5.0) g/dL Lipase (23-300) U/L POC Troponin I (0.01-0.04) ng/ml 01/25/24 01/25/24 01/25/24 Range/Units 08:50 08:50 08:50 WBC (4.50-11.00) K/uL RBC (4.00-5.20) m/uL Hgb (12.0-16.0) gm/dL Hct (33.0-51.0) % MCV (80-100) fL MCH (26-34) pg MCHC (32-36) gm/dL RDW Coeff of Marshall (11.5-15.5) % Plt Count (140-440) K/uL Neut % (Auto) (42.0-72.0) % Lymph % (Auto) (20-44) % [place] % (Auto) (0.0-11.0) % Eos % (Auto) (0.0-7.0) % Baso % (Auto) (0.0-3.0) % Neut # (Auto) (1.7-7.0) K/uL Lymph # (Auto) (0.90-2.90) K/uL [place] # (Auto) (0.00-0.90) K/UL Eos # (Auto) (0.00-0.50) K/uL Baso # (Auto) (0.00-0.30) K/uL Abs Immat Gran (auto) (0.00-0.30) K/uL Imm/Tot Granulo (auto) % Sodium (135-149) mmol/L Potassium (3.6-5.1) mmol/L Chloride (96-114) mmol/L Carbon Dioxide (20-32) mmol/L Anion Gap (7-15) mEq/L BUN (7-30) mg/dL Creatinine (0.5-1.5) mg/dL Estimated Creat Clear Estimated GFR ml/min Glucose (60-115) mg/dL Calcium (8.4-10.6) mg/dL Total Bilirubin (0.1-1.5) mg/dL Direct Bilirubin (0.0-0.5) mg/dL AST Cancelled (12-35) U/L ALT 16 Cancelled (4-35) U/L Alkaline Phosphatase 80 Cancelled (40-150) U/L Total Protein 6.2 (6.0-8.3) g/dL Albumin (3.3-5.0) g/dL Lipase (23-300) U/L POC Troponin I (0.01-0.04) ng/ml 01/25/24 01/25/24 Range/Units 08:50 08:50 WBC (4.50-11.00) K/uL RBC (4.00-5.20) m/uL Hgb (12.0-16.0) gm/dL Hct (33.0-51.0) % MCV (80-100) fL MCH (26-34) pg MCHC (32-36) gm/dL RDW Coeff of Marshall (11.5-15.5) % Plt Count (140-440) K/uL Neut % (Auto) (42.0-72.0) % Lymph % (Auto) (20-44) % [place] % (Auto) (0.0-11.0) % Eos % (Auto) (0.0-7.0) % Baso % (Auto) (0.0-3.0) % Neut # (Auto) (1.7-7.0) K/uL Lymph # (Auto) (0.90-2.90) K/uL [place] # (Auto) (0.00-0.90) K/UL Eos # (Auto) (0.00-0.50) K/uL Baso # (Auto) (0.00-0.30) K/uL Abs Immat Gran (auto) (0.00-0.30) K/uL Imm/Tot Granulo (auto) % Sodium (135-149) mmol/L Potassium (3.6-5.1) mmol/L Chloride (96-114) mmol/L Carbon Dioxide (20-32) mmol/L Anion Gap (7-15) mEq/L BUN (7-30) mg/dL Creatinine (0.5-1.5) mg/dL Estimated Creat Clear Estimated GFR ml/min Glucose (60-115) mg/dL Calcium (8.4-10.6) mg/dL Total Bilirubin (0.1-1.5) mg/dL Direct Bilirubin (0.0-0.5) mg/dL AST (12-35) U/L ALT (4-35) U/L Alkaline Phosphatase (40-150) U/L Total Protein Cancelled (6.0-8.3) g/dL Albumin 4.3 Cancelled (3.3-5.0) g/dL Lipase 53 (23-300) U/L POC Troponin I 0.01 (0.01-0.04) ng/ml Imaging Data CT scan - abdomen: Radiologist's impression: 1. Small-bowel obstruction with findings concerning for multifocal transition point and/or closed loop obstruction. Diffuse mesenteric stranding and small volume ascites may reflect ischemic change. No pneumatosis or free intraperitoneal gas. Mesenteric vasculature as imaged is patent. Surgical consultation regarding further management recommended. 2. Cholelithiasis. 3. Sigmoid diverticulosis without evidence of acute diverticulitis. ECG Data Attestation: I personally reviewed and interpreted this ECG as follows: Interpretation: Normal sinus rhythm. Rate is 80 beats per minute. There are no ST or T-wave abnormalities. Discharge Plan Discharge Clinical Impression: Bowel obstruction Patient Disposition: XFER to OR Condition: Unchanged Prescriptions: No Action Restasis MultiDose 0.05 % drops 1 drp ophthalmic (eye) Q12H atorvastatin 40 mg tablet 40 mg PO QDAY Qty: 90 3RF lisinopril 20 mg tablet 20 mg PO DAILY Qty: 90 3RF meloxicam 7.5 mg tablet 7.5 mg PO QDAY Qty: 90 3RF omeprazole 40 mg capsule,delayed release(DR/EC) 40 mg PO QDAY Qty: 90 3RF omega 3-tah-dfw-fish oil [Fish Oil] 60-90-500 mg capsule 1 cap PO QDAY Ca carb-D3-mag pq-hrp-abab-Zn 600 mg-20 mcg- 40 mg-0.25 mg tablet,chewable PO DAILY alendronate 70 mg tablet 70 mg PO QWEEK 90 Days Qty: 13 3RF solifenacin 10 mg tablet 10 mg PO DAILY Qty: 90 3RF amlodipine 2.5 mg tablet 2.5 mg PO QHS Qty: 90 0RF Follow Up/Referrals: Yael Yen, AYAKAC [Primary Care Provider] -
--- OUTSIDE RECORDS SUMMARY | 2024-01-25 08:38 | XMS_ITS | Clinical Summary ---
Author Organization [facility] Address [address] [place], [place] [address] [address] Care Team Providers Care Sales Merchandising Specialist Name Role Phone Bg Calderon MD Primary Care Provider [phone] Allergies Active Allergy Reactions Criticality Noted Date Comments Penicillins Rash 11/26/2006 Other reaction(s): Other - Describe In Comment Field Hands and feet get red and swollen. Juan Banda SHEAR HELPER 2:40 PM 03/18/2012 Medications Medication Sig Dispensed [...] 2 times daily Reported on 06/29/2016 Active Harwood-3 Fatty Acids (FISH OIL) 1200 MG CAPS [...] MULTIDOSE 0.05 % ophthalmic emulsion 07/25/2020 Active Harwood-3 Fatty Acids (FISH OIL) 1200 MG capsule [...] AM CDT Pulse 57 06/29/2016 7:10 PM AUTOMATIC WASHER MECHANIC Temperature 36.6 ??C (97.8 ??F) 06/29/2016 7:10 PM CS T Respiratory Rate 18 10/20/2013 9:05 AM CDT Oxygen Saturation 97% 06/29/2016 7:10 PM AUTOMATIC WASHER MECHANIC Inhaled Oxygen Concentration - - Weight 82.3 [...] BILATERAL W/ JEREMIAS Routine 04/29/2016 11:05 AM AUTOMATIC WASHER MECHANIC Visit for screening mammogram DX BONE DENSITY Routine 04/29/2016 10:37 AM AUTOMATIC WASHER MECHANIC Asymptomatic postmenopausal state COLONOSCOPY Routine 02/20/2013 10:25 AM CDT LIPID PROFILE Routine 09/28/2011 7:32 AM CDT Pure hypercholesterolemia BASIC METABOLIC PANEL Routine 02/20/2008 7:06 AM CDT from Last 3 Months or Most Recently Relevant to Health Maintenance Results * MA Screen Bilateral w/Jeremias (04/29/2016 11:05 AM AUTOMATIC WASHER MECHANIC) Anatomical Region Laterality Modality Breast Bilateral Mammography Impressions 04/29/2016 11:49 AM AUTOMATIC WASHER MECHANIC IMPRESSION: BI-RADS CATEGORY: 1 - ??NEGATIVE. RECOMMENDED FOLLOW-UP: Annual Mammography. The patient will be notified of the results. TRISTON WEI Narrative 04/29/2016 11:49 AM AUTOMATIC WASHER MECHANIC Examination: Bilateral digital screening mammography with computer [...] AHMET * DX Hip/Pelvis/Spine (04/29/2016 10:37 AM AUTOMATIC WASHER MECHANIC) Anatomical Region Laterality Modality Dexa Computed Radiogr aphy Narrative 04/30/2016 11:25 AM AUTOMATIC WASHER MECHANIC DX Hip/Pelvis/Spine Order #: [id number] Study Notes? Ericka Jasmine on 04/29/2016 10:45 AM ?? BONE DENSITOMETRY [facility] CARE MANAGEMENT SPECIALIST & SURGERY- [place] [place] [id number] 04/29/2016 PATIENT: Tj Stoll CHART: [id number] ?? :?? 1945 AGE:?? 71 year old SEX:?? female REFERRING PROVIDER:?? Dr Diallo PROCEDURE:?? Bone density scanning was performed using DXA technology of the lumbar spine and hip.?? Scanning was performed on a [employer] scanner.?? Reporting is completed in the form [...] to another DXA performed on the same [employer]?? machine on 06/15/2011. IMPRESSION Z score is within the expected range for age Z score is below the expected range for age David Diallo MD ?? Discussed here Alvaro Diallo MD IMG DEXA ORDERABLES * COLONOSCOPY (02/20/2013 10:25 AM CDT) Pathologist [facility] COLONOSCOPY [facility] Endoscopy Department Patient Name: Tj Stoll [...] Performing Lab Site ID: [id number] [facility] Address: [address] [place] [id number] Filter Helper: Matt Weinberg M.D. Hakeem Viera MD LAB - BLOOD ORDERABL ES Performing Organization Address City/[facility] Co de Phone Number ANGELIQUE DURBIN [address] [place] [phone] * (ABNORMAL) Basic metabolic panel (02/20/2008 7:06 [...] Recently Relevant to Health Maintenance Care Teams Sales Merchandising Specialist Relationship Specialty Start Date End Date Bg Calderon MD PCP - General 04/29/16
--- OUTSIDE RECORDS SUMMARY | 2024-01-25 08:38 | XMS_ITS | Referral Summary ---
Author Organization [place] Address [address] [place], [place] [address] [address] Care Team Providers Care Director Sales Training Name Role Phone Bg Calderon MD Primary Care Provider [phone] Allergies Active Allergy Reactions Criticality Noted Date Comments Penicillins Rash 11/26/2006 Other reaction(s): Other - Describe In Comment Field Hands and feet get red and swollen. 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 2:40 PM 03/18/2012 Medications Medication Sig Dispensed [...] 2 times daily Reported on 06/29/2016 Active Troy-3 Fatty Acids (FISH OIL) 1200 MG CAPS [...] MULTIDOSE 0.05 % ophthalmic emulsion 07/25/2020 Active Troy-3 Fatty Acids (FISH OIL) 1200 MG capsule [...] AM CDT Pulse 57 06/29/2016 7:10 PM HAND TIER Temperature 36.6 ??C (97.8 ??F) 06/29/2016 7:10 PM CS T Respiratory Rate 18 10/20/2013 9:05 AM CDT Oxygen Saturation 97% 06/29/2016 7:10 PM HAND TIER Inhaled Oxygen Concentration - - Weight 82.3 kg (181 lb 6.4 oz) 11/15/2020 1:25 P M CDT Height 156.2 cm (5' 1.5) 11/15/2020 1:25 PM CDT Body Mass Index 33.72 11/15/2020 1:25 PM CDT Plan of Treatment Not on file Procedures Procedure Name Priority Date/Time Associated Diagnosis Comments MA SCREENING BILATERAL W/ JEREMIAS Routine 04/29/2016 11:05 AM HAND TIER Visit for screening mammogram DX BONE DENSITY Routine 04/29/2016 10:37 AM HAND TIER Asymptomatic postmenopausal state COLONOSCOPY Routine 02/20/2013 10:25 AM CDT LIPID PROFILE Routine 09/28/2011 7:32 AM CDT Pure hypercholesterolemia BASIC METABOLIC PANEL Routine 02/20/2008 7:06 AM CDT from Last 3 Months or Most Recently Relevant to Health Maintenance Results * MA Screen Bilateral w/Jeremias (04/29/2016 11:05 AM HAND TIER) Anatomical Region Laterality Modality Breast Bilateral Mammography Impressions 04/29/2016 11:49 AM HAND TIER IMPRESSION: BI-RADS CATEGORY: 1 - ??NEGATIVE. RECOMMENDED FOLLOW-UP: Annual Mammography. The patient will be notified of the results. TRISTON WEI Narrative 04/29/2016 11:49 AM HAND TIER Examination: Bilateral digital screening mammography with computer [...] LEO * DX Hip/Pelvis/Spine (04/29/2016 10:37 AM HAND TIER) Anatomical Region Laterality Modality Dexa Computed Radiogr aphy Narrative 04/30/2016 11:25 AM HAND TIER DX Hip/Pelvis/Spine Order #: [id number] Study Notes? Ericka Jasmine on 04/29/2016 10:45 AM ?? BONE DENSITOMETRY [facility] [place] [address] [place] [address] 04/29/2016 PATIENT: Tj Stoll CHART: [id number] ?? :?? 1945 AGE:?? 71 year old SEX:?? female REFERRING PROVIDER:?? Dr Diallo PROCEDURE:?? Bone density scanning was performed using DXA technology of the lumbar spine and hip.?? Scanning was performed on a [employer] scanner.?? Reporting is completed in the form [...] to another DXA performed on the same [employer]?? machine on 06/15/2011. IMPRESSION Z score is within the expected range for age Z score is below the expected range for age David Diallo MD ?? Discussed here Alvaro Diallo MD IMG DEXA ORDERABLES * COLONOSCOPY (02/20/2013 10:25 AM CDT) COLONOSCOPY [facility] Patient Name: Tj Stoll ? [...] Performing Lab Site ID: CB Lab Name: [facility] Address: [address] [place] [id number] Carton Folder: Matt Weinberg M.D. Hakeem Viera MD LAB - BLOOD ORDERABL ES Performing Organization Address [facility]/ZIP Co de Phone Number ANGELIQUE DURBIN [address] [place] [address] * (ABNORMAL) Basic metabolic panel (02/20/2008 7:06 [...] Recently Relevant to Health Maintenance Care Teams Director Sales Training Relationship Specialty Start Date End Date gB Calderon MD PCP - General 04/29/16
--- OUTSIDE RECORDS SUMMARY | 2024-01-25 08:38 | XMS_ITS | Encounter Summary ---
Author Organization [place] Address [address] [place] [address]. [place] [address] Care Team Providers Care Sand Control Worker Name Role Phone Bg Calderon MD Primary Care Provider [phone] Ezra Hess DPM Unavailable [phone] Mimi Hernandez DPM, Podiatry /Foot and Ankle Surgery Unavailable Reason for Visit * Reason Comments Refill Request Encounter Details Date Type Department Care Team (Late st Contact Info) Description 10/12/2011 [facility] [address] [place] [address]. [address] [place] [address] Hakeem Viera MD [address] [place] [address] Refill Request Social History Tobacco Use Types [...] hypercholesterolemia documented in this encounter Care Teams Sand Control Worker Relationship Specialty Start Date End Date Bg Calderon MD PCP - General 04/29/16 Ezra Hess DPM [address] [facility] [address] [place] [address] Assigned Musculoskeletal Provider 09/22/20 11/23/20 Mimi Hernandez DPM, Podiatry/Foot and Ankle Surgery [address] [facility] [address] [place], [place] [address] Assigned Musculoskeletal Provider 11/24/20 05/22/22 documented as of this encounter
--- OUTSIDE RECORDS SUMMARY | 2024-01-25 08:38 | XMS_ITS | Clinical Summary ---
Author Organization [employer] [facility] Address [place], [place] [address] Care Team Providers Care Net Sql Developer Name Role Phone YenAbhishek olvera Sen MARLEYC Primary Care Provider [phone] Bg Calderon MD Unavailable [phone] Alvaro Diallo MD Unavailable [phone] Allergies Active Allergy Reactions Criticality Noted Date Comments Penicillins Other - Describe In Comment Field 03/18/2012 Hands and feet get red and swollen. Juan Blunt GROUP PRESIDENT 2:40 PM 03/18/2012 Medications Medication Sig Dispensed [...] Celiac Sprue or H.Pylori (Dr. Angel - [facility]) 10/22/16 - Hgb to 11.6 and [...] Right Hip OA - Cortisone injection 05/08/14 ([facility]) Tinnitus 05/25/2014 Hiatal hernia with Associated GERD 05/25/2014 Overview (05/25/2014): Does well with sleeping sitting up Plantar fasciitis 05/25/2014 Overview (10/21/2016): No problem if not going barefoot CAD (coronary artery disease) by imaging 015 Overview (05/25/2014): CT Coronary Artery 09/2013 ([facility]): Calcium score 50-75%tile. Mild stenosis <25% in LAD and circumflex. Venous insufficiency 05/25/2014 HTN (hypertension) Hypercholesteremia Overview (07/27/2014): Previous Simvastatin 20mg, changed to Atorvastatin 40mg 07/27/[address] Coronary Calcium Score Resolved Problems Problem Noted Date Diagnosed Date Resolved Date Colon cancer screening in 14 with 5 year fu, 4 05/25/2014 Encounters Date Type Department Care Team Description 01/20/2024 Telephone [facility] [address] [place] [address] Cornel Harding MD Results 12/23/2023 9:30 AM CDT Office Visit [facility] [address] [place] [address] Cornel Harding MD 12/23/2023 Orders Only [facility] [address] [place] [address] Cornel Harding MD 1 scan: (1-Ord) ZIO REPORT 11/25/2023 11:00 AM CDT Ancillary Procedure [facility] [address] [facility] [address] [place] [address] 11/25/2023 10:40 AM CDT Orders Only [facility] [address] [facility] [address] [place] [address] Lab 11/25/2023 Travel 11/18/2023 Nurse/Clinic Staff Only [facility] [address] [place] [address] Rupert Marcial MD 11/18/2023 Telephone [facility] [address] [place] [address] Rupert Marcial MD Results (Stress echo) 11/09/2023 1:00 PM CDT Ancillary Procedure [facility] [address] [place] [address] 11/09/2023 Travel from Last 3 Months Immunizations [...] DT Respiratory Rate 14 03/06/2013 11:03 AM ENVELOPE SEALER Oxygen Saturation 99% 11/16/2013 8:24 AM CDT [...] for age 12+ 09/09/2017 09/10/19 17, 08/16/2015 Medicare Wellness for age 65+ 09/10/2017, 08/16/2015, 09/13/2013 BMI (ht and wt on same day) for age 18+ 10/21/2017 10/21/2016, 09/09/2016, 07/16/2016, Additional history exists Tetanus booster 01/31/2019 01/31/2009 RSV vaccine for adults or (1 - 1-dose 75+ series) 2021 COVID-19 vaccine series ( season) 2023 03/25/2021, 08/10/2020, 07/20/2020 Influenza for age 65+ 12/26/2023 02/28/2016 , 02/01/2015, 02/16/2014, Additional history exists Tdap Completed 01/31/2009 (Comp leted outside of [facility]), 01/31/2009 Pneumococcal series for age 65+ Completed 5, 03/18/2012 DEXA/DXA scan for age 65+ Completed 2016 (Completed outside of [facility]), 09/15/2013 Procedures Procedure Name Priority Date/Time Associated Diagnosis Comments EXTENDED HOLTER Routine 01/03/[address] CARDIAC CORONARY ARTERIES DUAL READ Routine 11/25/2023 12:12 PM CDT Coronary artery disease involving [place] coronary artery of [place] heart without angina pectoris HTN (hypertension) Chest [...] (Electronic Signature) Narrative 11/28/2023 9:41 PM CDT ?[facility] ? Cardiac CT Report ??MRN: ?[id number] ?Name: ? TJ STOLL ?: ?Scan Date: ?Accession Number: ?[id number] ?Status: ?Final ? Electronically signed by Sergio Aguayo 16:16:54 VITALS HEIGHT: 62 in ?(157 cm) WEIGHT: 154 lbs ?(70 kgs) BSA: 1.71 m^2 BMI: 28 kg/m^2 BP: 123 / 62 mmHg BASELINE HR: 52 BPM HEART RHYTHM: PVCs FINAL IMPRESSION 1. Nonobstructive coronary atherosclerosis. 2. Total coronary artery calcium score 173. MACKEY [...] mm. Coronary artery plaque quantification (calculated by [employer] analysis): ??Total plaque volume is 92 [...] TYPE: ??Calcium score, Coronary CT Angiography SCANNER CONSTRUCTION GRIP: ??SIEMENS SCANNER MODEL: ??SOMATOM gamigo DOSE REDUCTION ALGORITHM: ??Prospective/Meta-[id number]-bxnnf PHASE UNITS: ??% START PHASE: ??65 % [...] ?REFERRING PHYSICIAN: ??RUPERT MARCIAL ?TECHNOLOGIST: ??Alana Loredo Patient Account ?[id number] ICD10 Codes ?I25.10, I10, R07.9 Report generated by [employer], a product of [employer] For [...] conjunction with the services provided by the [facility] ([facility]). CLINICAL HISTORY: ??Cardiac CT over-read. ? FINDINGS: Aorta: Normal caliber with no signs of dissection. Pulmonary arteries:No filling defects, bolus timing may somewhat limit evaluation. Mediastinum:No suspicious adenopathy. Lungs and pleural structures: Clear, no effusions Rupert Marcial MD CT * (ABNORMAL) CREATININE,ISTAT (11/25/2023 10:46 AM CDT) CREATININE, POCT 0.80 0.57 - 1.11 mg/dL 11/25/2023 10:51 AM CDT [facility] Comment:Caution: Patients ta vasyl Hydroxyurea have falsely increased iStat Creatinine results. Verify creatinine results ordering a Creatinine (02931.2) eGFR 76(L) >90 mL/min/1.7 3m2 11/25/2023 10:51 AM CDT [facility] Comment:As of 2021, eG FR is calculated by the CKD-EPI creatinine equation without race adjustment. eGFR can be influenced by muscle mass, exercise, and diet. The reported eGFR is an estimation only and is only applicable if the renal function is stable. Blood BLOOD SPECIMEN / Unknown 11/25/2023 10:46 AM CDT 11/25/2023 10:51 AM CDT Rupert Marcial MD CHEMISTRY [facility] [address] [id number], * ECHO STRESS EXERCISE WO CONTRAST (11/09/2023 1:35 PM CDT) EJECTION FRACTION 55 - 60% Anatomical Region Laterality Modality Ultrasound 11/09/2023 1:09 PM CDT Narrative 11/09/2023 2:05 PM CDT STRESS ECHOCARDIOGRAM TJ STOLL ?Accession#: ?? [id number] : ?1945 78 years Study Date: ?? 11/09/2023 1:09:11 PM Gender: F ? BP: ? 163/82 mmHg Height: 155.00 cm ? BSA: ?1.81 m? ? ? Weight: 82.00 kg ?Tech: ? MTS ?Referring MD: ABIHSHEK YEN Site: ? [facility] Reading Location: [facility] Patient Location: Outpatient. Procedure: Stress Echo. Sammy [...] % of Max ? 102% Double Product [id number] Echo Findings:This is a positive stress echo [...] [place] [address]. Maximum stress test with 102.5% of age [...] . This study was interpreted by an [facility] accredited facility. ??Final ?? Procedure Note Aleida Molina MD - 11/09/2023 STRESS ECHOCARDIOGRAM TJ STOLL : 1945 78 years Study Date: 11/09/2023 1:09:11 PM Gender: F BP: 163/82 mmHg Height: 155.00 cm BSA: 1.81 m? ? ? Weight: 82.00 kg Tech: [facility] Referring MD: ABHISHEK YEN Site: [facility] Reading Location: [facility] Patient Location: Outpatient. Procedure: Stress Echo. Sammy [...] 142 % of Max 102% Double Product [id number] Echo Findings:This is a positive stress echo [...] 0 sec to stage I according to [facility] stress echo protocol. Test terminated due to fatigue. 4.6 METS wereachieved. The patient achieved a heart rate of 146 bpm which is 102.5% ofmaximum predicted heart rate. Maximum systolic blood pressure was 173 [place] [address]. Maximum stress test with 102.5% ofage predicted [...] . This study was interpreted by an [facility] accredited facility. Final Abhishek Yen PA-C ECHO [...] in 2-3 years. ? Ernie Condon M.D., C.C.Jennifer. Narrative 09/15/2013 12:42 PM CDT PATIENT NAME: [...] and hip. Scanning was performed on a [employer] Scanner. Reporting is completed in the form [...] and hip. Scanning was performed on a [employer] Scanner. Reportingis completed in the form of [...] Documents on File Type Date Recorded Patient Injection Specialist Expl anation Healthcare Directive 02/15/2012 2:57 PM Power of Auctioneer Art 02/15/2012 2:54 PM Care Teams Net Sql Developer Relationship Specialty Start Date End Date Abhishek Yen PA-C [address] [place] [address] PCP - General Physician Panama Hat Blocker 09/23/23 Bg Calderon MD [address] [address] Internal Medicine 09/23/23 Alvaro Diallo MD [address] [address] COMPUTER CONSULTANT Obstetrics and Gynecology 05/25/14
--- OUTSIDE RECORDS SUMMARY | 2024-01-25 08:38 | XMS_ITS | Encounter Summary ---
Author Organization [place] Address [address] [place] [address]. [place] [address] Care Team Providers Care Welder Setter Resistance Machine Name Role Phone Bg Calderon MD Primary Care Provider [phone] Ezra Hess DPM Unavailable [phone] Mimi Hernandez DPM, Podiatry /Foot and Ankle Surgery Unavailable Reason for Visit * Reason Comments Refill Request Encounter Details Date Type Department Care Team (Late st Contact Info) Description 07/13/2011 [facility] [address] [place] [address]. [address] [place] [address] Hakeem Viera MD [address] [place] [address] Refill Request Social History Tobacco Use Types [...] hypertension documented in this encounter Care Teams Welder Setter Resistance Machine Relationship Specialty Start Date End Date Bg Calderon MD PCP - General 04/29/16 Ezra Hess DPM [address] [facility] [address] [place] [address] Assigned Musculoskeletal Provider 09/22/20 11/23/20 Mimi Hernandez, ALE, Podiatry/Foot and Ankle Surgery [address] [facility] [address] [place] [address] Assigned Musculoskeletal Provider 11/24/20 05/22/22 documented as of this encounter
[2024-01-25 09:00] LABS: Troponin, Point-of-Care* 0.01 ng/ml (0.01-0.04)
[2024-01-25] MEDS: ONDANSETRON 2 MG/ML inj 4 MG IVP (09:03)
[2024-01-25] MEDS: 0.9 % SODIUM CHLORIDE 1000 ml 1,000 ML IV (09:03)
[2024-01-25 09:06] LABS: Basophils Absolute Auto 0.01 K/uL (0.00-0.30); Basophils Percent Auto 0.1 % (0.0-3.0); Eosinophils Absolute Auto 0.01 K/uL (0.00-0.50); Eosinophils Percent Auto 0.1 % (0.0-7.0); Hematocrit 45.3 % (33.0-51.0); Hemoglobin* 14.7 gm/dL (12.0-16.0); Immature Granulocytes Abs Auto 0.02 K/uL (0.00-0.30); Immature Granulocytes Pct Auto 0.2 %; Lymphocytes Percent Auto 13.6 % (20-44); Mean Corpuscular HGB Conc 33 gm/dL (32-36); Mean Corpuscular Hemoglobin 30 pg (26-34); Mean Corpuscular Volume 93 fL (80-100); Monocytes Percent Auto 7.8 % (0.0-11.0); Neutrophils Percent Auto 78.2 % (42.0-72.0); Platelet Count* 229 K/uL (140-440); RDW Coefficient of Variation % 12.4 % (11.5-15.5); Red Blood Count 4.88 m/uL (4.00-5.20); White Blood Count* 8.72 K/uL (4.50-11.00)
[2024-01-25 09:08] LABS: Slide Review Reflex No
[2024-01-25 09:19] LABS: Albumin* 4.3 g/dL (3.3-5.0); Chloride* 107 mmol/L (96-114); Sodium* 138 mmol/L (135-149)
[2024-01-25 09:20] LABS: Potassium* 3.5 mmol/L (3.6-5.1)
[2024-01-25 09:21] LABS: Creatinine* 0.8 mg/dL (0.5-1.5); Est. Creatinine Clearance* 35.55; Estimated Glomerular Filt Rate 76 ml/min
[2024-01-25 09:22] LABS: Alanine Aminotransferase* 16 U/L (4-35); Alkaline Phosphatase* 80 U/L (40-150); Anion Gap 10 mEq/L (7-15); Aspartate Amino Transferase* 33 U/L (12-35); Bilirubin Direct* 0.3 mg/dL (0.0-0.5); Bilirubin Total* 1.5 mg/dL (0.1-1.5); Blood Urea Nitrogen* 32 mg/dL (7-30); Calcium* 9.5 mg/dL (8.4-10.6); Carbon Dioxide* 21 mmol/L (20-32); Glucose* 154 mg/dL (60-115); Lipase* 53 U/L (23-300); Total Protein* 6.2 g/dL (6.0-8.3)
--- NOTE | 2024-01-25 12:08 | P.GSCN_ITS ---
Documented by User: Jacinda Dietrich Jose Antonios 01/25/24 12:30 History of Present Illness Consult details Time Seen by Provider: 11:00 Date Seen: 01/25/24 Consult date: 01/25/24 Reason for consult: abdominal pain Requesting physician: Gene Kelly Narrative: Tj, a 78 year old female, with a PMH of a 2nd degree AV block, OAD, chronic low back pain, thyroid nodule, hypertension, hypercholesterolemia, and GERD with a hiatal hernia presented to the ED with a 2 day history of epigastric pain. She describes the pain as constant, and sharp with radiation to the back. Every movement makes it worse. She tried Tylenol, Pepcid, and Tums and those eased up the pain for a bit but it came right back. She rates her pain between a 8-9 and that severity has not eased up at all. She states that when this pain began on Wednesday she ate a chocolate protein shake that she feels like this got clogged up. She denies nausea, but has vomited and had a decrease in appetite. Denies blood in her emesis. Last ate yogurt yesterday afternoon. Instantly threw it up. Usually has a couple bowel movements a day but for the past 6 months she feels like she has to strain more and her stool is like marbles. Last BM was last night with marbles. Denies blood in stool. Also reports fever and chills and feeling sweaty this morning. Denies smoking and alcohol use. Denies blood clot and bleeding history. Had a c- section 50 years ago. Denies additional GI surgeries or GI diagnoses. Denies blood thinner use. Takes daily Meloxicam for chronic pain. Last EGD this spring. Found to have a 2nd degree AV block during this. Colonoscopy in 2021, next due in 2024. Review of Systems Status of ROS: Reports: 6 or more systems reviewed and unremarkable except as noted in History and below Narrative: As seen in HPI. PFSH PFSH Medical History Positive Lyme disease serology ?R76.8 - Other specified abnormal immunological findings in serum (ICD-10) Increased frequency of urination ?R35.0 - Frequency of micturition (ICD-10) Memory loss ?R41.3 - Other amnesia (ICD-10) History of compression fracture of spine ?Z87.81 - Personal history of (healed) traumatic fracture (ICD-10) Iron deficiency anemia ?D50.9 - Iron deficiency anemia, unspecified (ICD-10) Amnesia ?R41.3 - Other amnesia (ICD-10) Health care directive on file ?Z78.9 - Other specified health status (ICD-10) Surgical History History of ?Z98.891 - History of uterine scar from previous surgery (ICD-10) History of biopsy ?Z98.890 - Other specified postprocedural states (ICD-10) Status post tubal ligation ?Z98.51 - Tubal ligation status (ICD-10) Status post total bilateral knee replacement (2007) ?Z96.653 - Presence of artificial knee joint, bilateral (ICD-10) Status post tonsillectomy and adenoidectomy ?Z90.89 - Acquired absence of other organs (ICD-10) History of colonoscopy ?Z98.890 - Other specified postprocedural states (ICD-10) History of bilateral cataract extraction ?Z98.41 - Cataract extraction status, right eye (ICD-10) ?Z98.42 - Cataract extraction status, left eye (ICD-10) Family History Father Colorectal cancer Mother Heart disease Lymphoma Aunt Heart disease Social History Narrative: Does not use illicit drugs Nonsmoker Rarely consumes alcohol What is your current living situation?: I presently have a place to live Problems where you live: no known problems In the past 12 months, utilities in danger of being shut off: no In past 12 months, lack of transportation kept you from medical appts, meetings, work, or getting things needed for daily living: no In the past 12 mos, have been you worried that your food would run out before you had money to buy more?: never true In the past 12 mos, the food you bought just didn't last and you didn't have money to buy more?: never true Smoking Status: Never smoker Non-prescribed substance use: denies use How often does anyone, including family, friends and others, physically hurt you : never How often does anyone, including family, friends and others, insult or talk down to you: never How often does anyone, including family, friends and others, threaten you with harm: never How often does anyone, including family, friends and others, scream or curse at you: never Little interest or pleasure in doing things: not at all Feeling down, depressed, or hopeless: not at all Meds Home Medications and Allergies Home Medications ?Medication ?Instructions ?Recorded ?Confirmed ?Type cyclosporine 0.05 % eye drops 1 drp ophthalmic (eye) Q12H 04/01/22 01/25/24 History (Restasis MultiDose) calcium 600 mg-D3 20 mcg-magnesium tab PO DAILY 09/30/23 12/23/23 History 40 qv-byedru-torc-zinc chew tablet omega 3-rqi-pzw-fish oil 60 mg-90 1 cap PO DAILY 09/30/23 01/25/24 History mg-500 mg capsule (Fish Oil) amlodipine 2.5 mg tablet 2.5 mg PO HS 01/25/24 01/25/24 History atorvastatin 40 mg tablet 40 mg PO DAILY 01/25/24 01/25/24 History Allergies Allergy/AdvReac Type Severity Reaction Status Date / Time penicillin G Allergy Verified 01/25/24 09:55 Exam Narrative: Exam Narrative: General: Sitting in hospital bed. In no acute distress. Answering questions appropriately. Cardio: RRRR. S1 and S2 normal. Respiratory: No wheezing or rhonchi. Clear to auscultation. GI: C section scar from belly button to just above the pubic region. Non- distended. BS present. TTP in epigastric region. Soft in lower abdomen with more firmness in upper abdomen. Const: Vital Signs, click to edit/add: Vital Signs - 24 hr 01/25/24 08:07 01/25/24 11:44 Temperature 97.8 F Pulse Rate [Right Pulse Oximeter] 89 84 Respiratory Rate 18 18 Blood Pressure [Ri ght Upper Arm] 115/70 136/76 Pulse Oximetry 97 96 Oxygen Delivery Me thod Room Air Room Air Results Labs Labs: Abnormal lab results 01/25/24 Range/Units 08:50 Neut % (Auto) 78.2 H (42.0-72.0) % Lymph % (Auto) 13.6 L (20-44) % Potassium 3.5 L (3.6-5.1) mmol/L BUN 32 H (7-30) mg/dL Glucose 154 H (60-115) mg/dL Diabetes panel 01/25/24 01/25/24 01/25/24 Range/Units 08:50 08:50 08:50 Sodium 138 (135-149) mmol/L Potassium 3.5 L (3.6-5.1) mmol/L Chloride 107 (96-114) mmol/L Carbon Dioxide 21 (20-32) mmol/L BUN 32 H (7-30) mg/dL Creatinine 0.8 (0.5-1.5) mg/dL Glucose 154 H (60-115) mg/dL Calcium 9.5 (8.4-10.6) mg/dL AST 33 Cancelled (12-35) U/L ALT 16 Cancelled (4-35) U/L Alkaline Phosphatase 80 (40-150) U/L Total Protein (6.0-8.3) g/dL Albumin (3.3-5.0) g/dL 01/25/24 01/25/24 01/25/24 Range/Units 08:50 08:50 08:50 Sodium (135-149) mmol/L Potassium (3.6-5.1) mmol/L Chloride (96-114) mmol/L Carbon Dioxide (20-32) mmol/L BUN (7-30) mg/dL Creatinine (0.5-1.5) mg/dL Glucose (60-115) mg/dL Calcium (8.4-10.6) mg/dL AST (12-35) U/L ALT (4-35) U/L Alkaline Phosphatase Cancelled (40-150) U/L Total Protein 6.2 Cancelled (6.0-8.3) g/dL Albumin 4.3 Cancelled (3.3-5.0) g/dL Calcium panel 01/25/24 01/25/24 Range/Units 08:50 08:50 Calcium 9.5 (8.4-10.6) mg/dL Albumin 4.3 Cancelled (3.3-5.0) g/dL Pituitary panel 01/25/24 Range/Units 08:50 Sodium 138 (135-149) mmol/L Potassium 3.5 L (3.6-5.1) mmol/L Chloride 107 (96-114) mmol/L Carbon Dioxide 21 (20-32) mmol/L BUN 32 H (7-30) mg/dL Creatinine 0.8 (0.5-1.5) mg/dL Glucose 154 H (60-115) mg/dL Calcium 9.5 (8.4-10.6) mg/dL Adrenal panel 01/25/24 01/25/24 01/25/24 Range/Units 08:50 08:50 08:50 Sodium 138 (135-149) mmol/L Potassium 3.5 L (3.6-5.1) mmol/L Chloride 107 (96-114) mmol/L Carbon Dioxide 21 (20-32) mmol/L BUN 32 H (7-30) mg/dL Creatinine 0.8 (0.5-1.5) mg/dL Glucose 154 H (60-115) mg/dL Calcium 9.5 (8.4-10.6) mg/dL Total Bilirubin 1.5 Cancelled (0.1-1.5) mg/dL AST 33 Cancelled (12-35) U/L ALT 16 (4-35) U/L Alkaline Phosphatase (40-150) U/L Total Protein (6.0-8.3) g/dL Albumin (3.3-5.0) g/dL 01/25/24 01/25/24 01/25/24 Range/Units 08:50 08:50 08:50 Sodium (135-149) mmol/L Potassium (3.6-5.1) mmol/L Chloride (96-114) mmol/L Carbon Dioxide (20-32) mmol/L BUN (7-30) mg/dL Creatinine (0.5-1.5) mg/dL Glucose (60-115) mg/dL Calcium (8.4-10.6) mg/dL Total Bilirubin (0.1-1.5) mg/dL AST (12-35) U/L ALT Cancelled (4-35) U/L Alkaline Phosphatase 80 Cancelled (40-150) U/L Total Protein 6.2 Cancelled (6.0-8.3) g/dL Albumin 4.3 (3.3-5.0) g/dL 01/25/24 Range/Units 08:50 Sodium (135-149) mmol/L Potassium (3.6-5.1) mmol/L Chloride (96-114) mmol/L Carbon Dioxide (20-32) mmol/L BUN (7-30) mg/dL Creatinine (0.5-1.5) mg/dL Glucose (60-115) mg/dL Calcium (8.4-10.6) mg/dL Total Bilirubin (0.1-1.5) mg/dL AST (12-35) U/L ALT (4-35) U/L Alkaline Phosphatase (40-150) U/L Total Protein (6.0-8.3) g/dL Albumin Cancelled (3.3-5.0) g/dL All other labs normal. Imaging Abdomen CT scan report/results: report reviewed and image reviewed Progress Note:A&P Assessment and plan (1) Bowel obstruction: Status: Acute Documented by User: Dorene Bassett MD 01/25/24 17:54 History of Present Illness Consult details Consult date: 01/25/24 Narrative: Tj is a 78 year old female, with a PMH of a 2nd degree AV block, OAD, chronic low back pain, thyroid nodule, hypertension, hypercholesterolemia, and GERD with a hiatal hernia who presented to the ED with a 2 day history of epigastric pain. She describes the pain as constant, and sharp with radiation to the back. Every movement makes it worse. She tried Tylenol, Pepcid, and Tums and those eased up the pain for a bit but it came right back. She rates her pain between a 8-9 and that severity has not eased up at all. Her symptoms are worse with movement. She states that when this pain began on Wednesday she ate a chocolate protein shake that she feels like this got clogged up. She denies nausea, but has vomited and had a decrease in appetite. Denies blood in her emesis. Last ate yogurt yesterday afternoon and instantly threw it up. She states that she usually has a couple bowel movements a day but for the past 6 months she feels like she has to strain more and her stool is like marbles. Last BM was last night which was small and marble-like. Denies blood in stool. Also reports fever and chills and feeling sweaty this morning. Denies smoking and alcohol use. Denies blood clot and bleeding history. Had a c- section 50 years ago - she states it was complicated by an infection. Denies additional GI surgeries or GI diagnoses. Denies blood thinner use. Takes daily Meloxicam for chronic pain. Last EGD this spring. Found to have a 2nd degree AV block during this - cardiology work-up revealed no major coronary disease; likely related to anesthesia. Colonoscopy in 2021, next due in 2024. PFSH PFSH Medical History Positive Lyme disease serology ?R76.8 - Other specified abnormal immunological findings in serum (ICD-10) Increased frequency of urination ?R35.0 - Frequency of micturition (ICD-10) Memory loss ?R41.3 - Other amnesia (ICD-10) History of compression fracture of spine ?Z87.81 - Personal history of (healed) traumatic fracture (ICD-10) Iron deficiency anemia ?D50.9 - Iron deficiency anemia, unspecified (ICD-10) Amnesia ?R41.3 - Other amnesia (ICD-10) Health care directive on file ?Z78.9 - Other specified health status (ICD-10) Surgical History History of ?Z98.891 - History of uterine scar from previous surgery (ICD-10) History of biopsy ?Z98.890 - Other specified postprocedural states (ICD-10) Status post tubal ligation ?Z98.51 - Tubal ligation status (ICD-10) Status post total bilateral knee replacement (2007) ?Z96.653 - Presence of artificial knee joint, bilateral (ICD-10) Status post tonsillectomy and adenoidectomy ?Z90.89 - Acquired absence of other organs (ICD-10) History of colonoscopy ?Z98.890 - Other specified postprocedural states (ICD-10) History of bilateral cataract extraction ?Z98.41 - Cataract extraction status, right eye (ICD-10) ?Z98.42 - Cataract extraction status, left eye (ICD-10) Family History Father Colorectal cancer Mother Heart disease Lymphoma Aunt Heart disease Social History Narrative: Does not use illicit drugs Nonsmoker Rarely consumes alcohol What is your current living situation?: I presently have a place to live Problems where you live: no known problems In the past 12 months, utilities in danger of being shut off: no In past 12 months, lack of transportation kept you from medical appts, meetings, work, or getting things needed for daily living: no In the past 12 mos, have been you worried that your food would run out before you had money to buy more?: never true In the past 12 mos, the food you bought just didn't last and you didn't have money to buy more?: never true Smoking Status: Never smoker Non-prescribed substance use: denies use How often does anyone, including family, friends and others, physically hurt you : never How often does anyone, including family, friends and others, insult or talk down to you: never How often does anyone, including family, friends and others, threaten you with harm: never How often does anyone, including family, friends and others, scream or curse at you: never Little interest or pleasure in doing things: not at all Feeling down, depressed, or hopeless: not at all Meds Home Medications and Allergies Home Medications ?Medication ?Instructions ?Recorded ?Confirmed ?Type cyclosporine 0.05 % eye drops 1 drp ophthalmic (eye) Q12H 04/01/22 01/25/24 History (Restasis MultiDose) calcium 600 mg-D3 20 mcg-magnesium tab PO DAILY 09/30/23 12/23/23 History 40 yy-qmsthd-qkcg-zinc chew tablet omega 4-ylh-fno-fish oil 60 mg-90 1 cap PO DAILY 09/30/23 01/25/24 History mg-500 mg capsule (Fish Oil) amlodipine 2.5 mg tablet 2.5 mg PO HS 01/25/24 01/25/24 History atorvastatin 40 mg tablet 40 mg PO DAILY 01/25/24 01/25/24 History Allergies Allergy/AdvReac Type Severity Reaction Status Date / Time penicillin G Allergy Verified 01/25/24 09:55 Exam Narrative: Exam Narrative: General: Sitting in hospital bed. In no acute distress. Answering questions appropriately. Cardio: RRRR. S1 and S2 normal. Respiratory: No wheezing or rhonchi. Clear to auscultation. GI: C section scar from belly button to just above the pubic region. Non- distended. BS present. Tender in epigastric region. Results Imaging Additional studies: CT scan of the abdomen and pelvis done today: IMPRESSION: 1. Small-bowel obstruction with findings concerning for multifocal transition point and/or closed loop obstruction. Diffuse mesenteric stranding and small volume ascites may reflect ischemic change. No pneumatosis or free intraperitoneal gas. Mesenteric vasculature as imaged is patent. Surgical consultation regarding further management recommended. 2. Cholelithiasis. 3. Sigmoid diverticulosis without evidence of acute diverticulitis. Small bowel obstruction discussed with Dr. Kelly by telephone at 10:32 a.m. on 01/25/2024. Dictated by Santos Ortiz MD @ 01/25/2024 10:35:38 AM Please note that all CT scans at this facility use dose modulation, iterative reconstruction, and/or weight-based dosing when appropriate to reduce radiation dose to as low as reasonably achievable. Dictated by: Santos Ortiz MD @ 01/25/2024 10:36:07 Progress Note:A&P Assessment and plan (1) Bowel obstruction: Status: Acute Assessment and Plan: Tj is a 78-year-old female with a small-bowel obstruction. Review of imaging myself and with the radiologist shows that there is a mesenteric swirl, concerning for internal hernia. Given this finding and her pain that is out of proportion to exam, I did recommend exploration to rule out impending bowel ischemia. Of note her labs are surprisingly normal, though she does have a left shift seen on her differential. -we discussed risks and benefits of surgery including bleeding, infection, need to resect bowel -we also discussed recovery. -she will need to remain as inpatient postoperatively until she is tolerating a diet moving her bowels. Some of the postoperative course will depend on what is found intraoperatively. -she agreed to proceed and will plan on surgery urgently today.
[2024-01-25] MEDS: LACTATED RINGERS 1000 ML 1,000 ML 125 ML IV ×3 (12:12→23:14)
[2024-01-25] MEDS: ERTAPENEM 1 GM inj IVPB (12:25)
--- OUTSIDE RECORDS SUMMARY | 2024-01-25 12:42 | XMS_ITS | Clinical Summary ---
Author Organization [facility] Address [place], [place] [address] Care Team Providers Care Plain Clothes Police Officer Name Role Phone YenAbhishek olvera Sen MARLEYC Primary Care Provider [phone] Bg Calderon MD Unavailable [phone] Alvaro Diallo MD Unavailable [phone] Allergies Active Allergy Reactions Criticality Noted Date Comments Penicillins Other - Describe In Comment Field 03/18/2012 Hands and feet get red and swollen. Juan Blunt ELECTROPLATER 2:40 PM 03/18/2012 Medications Medication Sig Dispensed [...] Celiac Sprue or H.Pylori (Dr. Angel - [facility]) 10/22/16 - Hgb to 11.6 and [...] Right Hip OA - Cortisone injection 05/08/14 ([facility]) Tinnitus 05/25/2014 Hiatal hernia with Associated GERD 05/25/2014 Overview (05/25/2014): Does well with sleeping sitting up Plantar fasciitis 05/25/2014 Overview (10/21/2016): No problem if not going barefoot CAD (coronary artery disease) by imaging 015 Overview (05/25/2014): CT Coronary Artery 09/2013 ([place]): Calcium score 50-75%tile. Mild stenosis <25% in LAD and circumflex. Venous insufficiency 05/25/2014 HTN (hypertension) Hypercholesteremia Overview (07/27/2014): Previous Simvastatin 20mg, changed to Atorvastatin 40mg 07/27/[address] Coronary Calcium Score Resolved Problems Problem Noted Date Diagnosed Date Resolved Date Colon cancer screening in 14 with 5 year fu, 4 05/25/2014 Encounters Date Type Department Care Team Description 01/20/2024 Telephone [facility] [address] [place] [address] Cornel Harding MD Results 12/23/2023 9:30 AM CDT Office Visit [facility] [address] [place] [address] Cornel Harding MD 12/23/2023 Orders Only [facility] [address] [place] [address] Cornel Harding MD 1 scan: (1-Ord) ZIO REPORT 11/25/2023 11:00 AM CDT Ancillary Procedure [facility] [address] [place] [address] 11/25/2023 10:40 AM CDT Orders Only [facility] [address] [facility] [address] [place] [address] Lab 11/25/2023 Travel 11/18/2023 Nurse/Clinic Staff Only [facility] [address] [place] [address] Rupert Marcial MD 11/18/2023 Telephone [facility] [address] [place] [address] Rupert Marcial MD Results (Stress echo) 11/09/2023 1:00 PM CDT Ancillary Procedure [facility] [address] [place] [address] 11/09/2023 Travel from Last 3 Months Immunizations [...] DT Respiratory Rate 14 03/06/2013 11:03 AM GRAIN ELEVATOR CLERK Oxygen Saturation 99% 11/16/2013 8:24 AM CDT [...] Tdap Completed 01/31/2009 (Comp leted outside of [facility]), 01/31/2009 Pneumococcal series for age 65+ Completed 5, 03/18/2012 DEXA/DXA scan for age 65+ Completed 2016 (Completed outside of [facility]), 09/15/2013 Procedures Procedure Name Priority Date/Time Associated Diagnosis Comments EXTENDED HOLTER Routine 01/03/[address] CARDIAC CORONARY ARTERIES DUAL READ Routine 11/25/2023 12:12 PM CDT Coronary artery disease involving [place] coronary artery of [place] heart without angina pectoris HTN (hypertension) Chest [...] (Electronic Signature) Narrative 11/28/2023 9:41 PM CDT ?[facility] ? Cardiac CT Report ??MRN: ?[id number] ?Name: ? TJ STOLL ?: ?Scan Date: ?Accession Number: ?[id number] ?Status: ?Final ? Electronically signed by Sergio [...] TYPE: ??Calcium score, Coronary CT Angiography SCANNER WAREHOUSE PACKAGING SUPERVISOR: ??SIEMENS SCANNER MODEL: ??SOMATOM SparCode DOSE REDUCTION ALGORITHM: ??Prospective/Gidz-zch-jfnzi PHASE UNITS: ??% START PHASE: ??65 % [...] ??RUPERT MARCIAL ?TECHNOLOGIST: ??Alana Loredo Patient Account ?[id number] ICD10 Codes ?I25.10, I10, R07.9 Report generated [...] conjunction with the services provided by the [facility] ([facility]). CLINICAL HISTORY: ??Cardiac CT over-read. ? FINDINGS: Aorta: Normal caliber with no signs of dissection. Pulmonary arteries:No filling defects, bolus timing may somewhat limit evaluation. Mediastinum:No suspicious adenopathy. Lungs and pleural structures: Clear, no effusions Rupert Marcial MD CT * (ABNORMAL) CREATININE,ISTAT (11/25/2023 10:46 AM CDT) CREATININE, POCT 0.80 0.57 - 1.11 mg/dL 11/25/2023 10:51 AM CDT [facility] Comment:Caution: Patients ta vasyl Hydroxyurea have falsely increased iStat Creatinine results. Verify creatinine results ordering a Creatinine (15100.2) eGFR 76(L) >90 mL/min/1.7 3m2 11/25/2023 10:51 AM CDT [facility] Comment:As of 2021, eG FR is calculated by the CKD-EPI creatinine equation without race adjustment. eGFR can be influenced by muscle mass, exercise, and diet. The reported eGFR is an estimation only and is only applicable if the renal function is stable. Blood BLOOD SPECIMEN / Unknown 11/25/2023 10:46 AM CDT 11/25/2023 10:51 AM CDT Rupert Marcial MD CHEMISTRY [facility] [address] [id number], * ECHO STRESS EXERCISE WO CONTRAST (11/09/2023 1:35 PM CDT) EJECTION FRACTION 55 - 60% Anatomical Region Laterality Modality Ultrasound 11/09/2023 1:09 PM CDT Narrative 11/09/2023 2:05 PM CDT STRESS ECHOCARDIOGRAM TJ STOLL ?Accession#: ?? [id number] : ?1945 78 years Study Date: ?? 11/09/2023 1:09:11 PM Gender: F ? BP: ? 163/82 mmHg Height: 155.00 cm ? BSA: ?1.81 m? ? ? Weight: 82.00 kg ?Tech: ? MTS ?Referring MD: ABHISHEK YEN Site: ? [facility] Reading Location: [facility] Patient Location: [...] % of Max ? 102% Double Product [id number] Echo Findings:This is a positive stress echo [...] [place] [address] Maximum stress test with 102.5% of age [...] . This study was interpreted by an [facility] accredited facility. ??Final ?? Procedure Note Aleida Molina MD - 11/09/2023 STRESS ECHOCARDIOGRAM TJ STOLL : 1945 78 years Study Date: 11/09/2023 1:09:11 PM Gender: F BP: 163/82 mmHg Height: 155.00 cm BSA: 1.81 m? ? ? Weight: 82.00 kg Tech: [facility] Referring MD: ABHISHEK YEN Site: [facility] Reading Location: [facility] Patient Location: Outpatient. Procedure: Stress Echo. [...] 142 % of Max 102% Double Product [id number] Echo Findings:This is a positive stress echo [...] 0 sec to stage I according to [facility] stress echo protocol. Test terminated due to fatigue. 4.6 METS wereachieved. The patient achieved a heart rate of 146 bpm which is 102.5% ofmaximum predicted heart rate. Maximum systolic blood pressure was 173 [place] [address]. Maximum stress test with 102.5% ofage predicted [...] . This study was interpreted by an [facility] accredited facility. Final Abhishek Yen PA-C [...] and hip. Scanning was performed on a [employer]. Reporting is completed in the form [...] and hip. Scanning was performed on a [employer] Scanner. Reportingis completed in the form of [...] Documents on File Type Date Recorded Patient Packager Machine Expl anation Healthcare Directive 02/15/2012 2:57 PM Power of Computer Graphics Illustrator 02/15/2012 2:54 PM Care Teams Plain Clothes Police Officer Relationship Specialty Start Date End Date Abhishek Yen PA-C [address] [place] [address] PCP - General Physician Senior It Recruiter 09/23/23 Bg Calderon MD [address] [address] Internal Medicine 09/23/23 Alvaro Diallo MD [address] [address] MOUTHPIECE MAKER Obstetrics and Gynecology 05/25/14
--- OUTSIDE RECORDS SUMMARY | 2024-01-25 12:42 | XMS_ITS | Clinical Summary ---
Author Organization [facility] Address [address] [place], [place] [address] [address] Care Team Providers Care Explosive Technician Name Role Phone Bg Calderon MD Primary Care Provider Allergies Active Allergy Reactions Criticality Noted Date Comments Penicillins Rash 11/26/2006 Other reaction(s): Other - Describe In Comment Field Hands and feet get red and swollen. Juan Banda DISH ROOM WORKER 2:40 PM 03/18/2012 Medications Medication Sig Dispensed [...] 2 times daily Reported on 06/29/2016 Active [place]-3 Fatty Acids (FISH OIL) 1200 MG CAPS [...] MULTIDOSE 0.05 % ophthalmic emulsion 07/25/2020 Active [place]-3 Fatty Acids (FISH OIL) 1200 MG capsule [...] AM CDT Pulse 57 06/29/2016 7:10 PM EXHAUST EMISSIONS AUTOMOTIVE TECHNICIAN Temperature 36.6 ??C (97.8 ??F) 06/29/2016 7:10 PM CS T Respiratory Rate 18 10/20/2013 9:05 AM CDT Oxygen Saturation 97% 06/29/2016 7:10 PM EXHAUST EMISSIONS AUTOMOTIVE TECHNICIAN Inhaled Oxygen Concentration - - Weight 82.3 [...] BILATERAL W/ JEREMIAS Routine 04/29/2016 11:05 AM EXHAUST EMISSIONS AUTOMOTIVE TECHNICIAN Visit for screening mammogram DX BONE DENSITY Routine 04/29/2016 10:37 AM EXHAUST EMISSIONS AUTOMOTIVE TECHNICIAN Asymptomatic postmenopausal state COLONOSCOPY Routine 02/20/2013 10:25 AM CDT LIPID PROFILE Routine 09/28/2011 7:32 AM CDT Pure hypercholesterolemia BASIC METABOLIC PANEL Routine 02/20/2008 7:06 AM CDT from Last 3 Months or Most Recently Relevant to Health Maintenance Results * MA Screen Bilateral w/Jeremias (04/29/2016 11:05 AM EXHAUST EMISSIONS AUTOMOTIVE TECHNICIAN) Anatomical Region Laterality Modality Breast Bilateral Mammography Impressions 04/29/2016 11:49 AM EXHAUST EMISSIONS AUTOMOTIVE TECHNICIAN IMPRESSION: BI-RADS CATEGORY: 1 - ??NEGATIVE. RECOMMENDED FOLLOW-UP: Annual Mammography. The patient will be notified of the results. TRISTON WEI Narrative 04/29/2016 11:49 AM EXHAUST EMISSIONS AUTOMOTIVE TECHNICIAN Examination: Bilateral digital screening mammography with computer [...] AHMET * DX Hip/Pelvis/Spine (04/29/2016 10:37 AM EXHAUST EMISSIONS AUTOMOTIVE TECHNICIAN) Anatomical Region Laterality Modality Dexa Computed Radiogr aphy Narrative 04/30/2016 11:25 AM EXHAUST EMISSIONS AUTOMOTIVE TECHNICIAN DX Hip/Pelvis/Spine Order #: [id number] Study Notes? Ericka Jasmine on 04/29/2016 10:45 AM ?? BONE DENSITOMETRY [facility]3] DIRECTOR VISUAL & SURGERY- YVONNE [address] [place] [address] 04/29/2016 PATIENT: Tj Stoll CHART: [id number] ?? :?? 1945 AGE:?? 71 year old SEX:?? female REFERRING PROVIDER:?? Dr Diallo PROCEDURE:?? Bone density scanning was performed using DXA technology of the lumbar spine and hip.?? Scanning was performed on a [employer] scanner.?? Reporting is completed in the form [...] to another DXA performed on the same [employer]?? machine on 06/15/2011. IMPRESSION Z score is within the expected range for age Z score is below the expected range for age David Diallo MD ?? Discussed here Alvaro Diallo MD IMG DEXA ORDERABLES * COLONOSCOPY (02/20/2013 10:25 AM CDT) Pathologist [facility] COLONOSCOPY [facility] Endoscopy Department Patient Name: Tj Stoll [...] Performing Lab Site ID: CB Lab Name: [facility] Address: [address] [place] [id number] Community Fundraiser: Matt Weinberg M.D. Hakeem Viera MD LAB - BLOOD ORDERABL ES Performing Organization Address City/[facility] Co de Phone Number ANGELIQUE DURBIN [address] [place] [phone] * (ABNORMAL) Basic metabolic panel (02/20/2008 7:06 [...] Recently Relevant to Health Maintenance Care Teams Explosive Technician Relationship Specialty Start Date End Date Bg Calderon MD PCP - General 04/29/16
--- OUTSIDE RECORDS SUMMARY | 2024-01-25 12:42 | XMS_ITS | Referral Summary ---
Author Organization [facility] Address [address] [place], [place] [address]. [place] [address] Care Team Providers Care Lathe Turner Name Role Phone Bg Calderon MD Primary Care Provider [phone] Allergies Active Allergy Reactions Criticality Noted Date Comments Penicillins Rash 11/26/2006 Other reaction(s): Other - Describe In Comment Field Hands and feet get red and swollen. Juan Banad SORTING MACHINE ATTENDANT 2:40 PM 03/18/2012 Medications Medication Sig Dispensed [...] 2 times daily Reported on 06/29/2016 Active [place]-3 Fatty Acids (FISH OIL) 1200 MG CAPS [...] MULTIDOSE 0.05 % ophthalmic emulsion 07/25/2020 Active [place]-3 Fatty Acids (FISH OIL) 1200 MG capsule [...] AM CDT Pulse 57 06/29/2016 7:10 PM CLAMSHELL ENGINEER Temperature 36.6 ??C (97.8 ??F) 06/29/2016 7:10 PM CS T Respiratory Rate 18 10/20/2013 9:05 AM CDT Oxygen Saturation 97% 06/29/2016 7:10 PM CLAMSHELL ENGINEER Inhaled Oxygen Concentration - - Weight 82.3 kg (181 lb 6.4 oz) 11/15/2020 1:25 P M CDT Height 156.2 cm (5' 1.5) 11/15/2020 1:25 PM CDT Body Mass Index 33.72 11/15/2020 1:25 PM CDT Plan of Treatment Not on file Procedures Procedure Name Priority Date/Time Associated Diagnosis Comments MA SCREENING BILATERAL W/ JEREMIAS Routine 04/29/2016 11:05 AM CLAMSHELL ENGINEER Visit for screening mammogram DX BONE DENSITY Routine 04/29/2016 10:37 AM CLAMSHELL ENGINEER Asymptomatic postmenopausal state COLONOSCOPY Routine 02/20/2013 10:25 AM CDT LIPID PROFILE Routine 09/28/2011 7:32 AM CDT Pure hypercholesterolemia BASIC METABOLIC PANEL Routine 02/20/2008 7:06 AM CDT from Last 3 Months or Most Recently Relevant to Health Maintenance Results * MA Screen Bilateral w/Jeremias (04/29/2016 11:05 AM CLAMSHELL ENGINEER) Anatomical Region Laterality Modality Breast Bilateral Mammography Impressions 04/29/2016 11:49 AM CLAMSHELL ENGINEER IMPRESSION: BI-RADS CATEGORY: 1 - ??NEGATIVE. RECOMMENDED FOLLOW-UP: Annual Mammography. The patient will be notified of the results. TRISTON WEI Narrative 04/29/2016 11:49 AM CLAMSHELL ENGINEER Examination: Bilateral digital screening mammography with computer [...] LEO * DX Hip/Pelvis/Spine (04/29/2016 10:37 AM CLAMSHELL ENGINEER) Anatomical Region Laterality Modality Dexa Computed Radiogr aphy Narrative 04/30/2016 11:25 AM CLAMSHELL ENGINEER DX Hip/Pelvis/Spine Order #: [id number] Study Notes? Ericka Jasmine on 04/29/2016 10:45 AM ?? BONE DENSITOMETRY [facility] OFFICE ASSISTANT & SURGERY- CL[place] [address] [place] [address] 04/29/2016 PATIENT: Tj Stoll CHART: [id number] ?? :?? 1945 AGE:?? 71 year old SEX:?? female REFERRING PROVIDER:?? Dr Diallo PROCEDURE:?? Bone density scanning was performed using DXA technology of the lumbar spine and hip.?? Scanning was performed on a [employer] scanner.?? Reporting is completed in the form [...] to another DXA performed on the same [employer]?? machine on 06/15/2011. IMPRESSION Z score is within the expected range for age Z score is below the expected range for age David Diallo MD ?? Discussed here Alvaro Diallo MD IMG DEXA ORDERABLES * COLONOSCOPY (02/20/2013 10:25 AM CDT) COLONOSCOPY [facility] Endoscopy Department Patient Name: Tj [...] Performing Lab Site ID: CB Lab Name: [facility] Address: [address] [place] [phone] Food Science Technician: Matt Weinberg M.D. Hakeem Viera MD LAB - BLOOD ORDERABL ES Performing Organization Address [facility]/ZIP Co de Phone Number ANGELIQUE DURBIN [address] [place] [phone] * (ABNORMAL) Basic metabolic panel (02/20/2008 7:06 [...] Recently Relevant to Health Maintenance Care Teams Lathe Turner Relationship Specialty Start Date End Date Bg Calderon MD PCP - General 04/29/16
--- OUTSIDE RECORDS SUMMARY | 2024-01-25 12:42 | XMS_ITS | Encounter Summary ---
Author Organization [facility] Address [address] [place] [address]. [place] [address] Care Team Providers Care Vice President Of News Name Role Phone Bg Calderon MD Primary Care Provider [phone] Ezra Hess DPM Unavailable [phone] Mimi Hernandez DPM, Podiatry /Foot and Ankle Surgery Unavailable Reason for Visit * Reason Comments Refill Request Encounter Details Date Type Department Care Team (Late st Contact Info) Description 10/12/2011 [facility] [address] [place] [address]. [address] [place] [address] Hakeem Viera MD [address] [place] [address] Refill Request Social History Tobacco Use Types [...] hypercholesterolemia documented in this encounter Care Teams Vice President Of News Relationship Specialty Start Date End Date Bg Calderon MD PCP - General 04/29/16 Ezra Hess DPM [address] [facility] [address] [place] [address] Assigned Musculoskeletal Provider 09/22/20 11/23/20 Mimi Hernandez DPM, Podiatry/Foot and Ankle Surgery [address] [facility] [address] [place], [place] [address] Assigned Musculoskeletal Provider 11/24/20 05/22/22 documented as of this encounter
--- OUTSIDE RECORDS SUMMARY | 2024-01-25 12:42 | XMS_ITS | Encounter Summary ---
Author Organization [facility] Address [address] [place] [address]. [place] [address] Care Team Providers Care Computer Terminal Operator Name Role Phone Bg Calderon MD Primary Care Provider [phone] Ezra Hess DPM Unavailable [phone] Mimi Hernandez DPM, Podiatry /Foot and Ankle Surgery Unavailable Reason for Visit * Reason Comments Refill Request Encounter Details Date Type Department Care Team (Late st Contact Info) Description 07/13/2011 [facility] [address] [place] [address]. [address] [place] [address] Hakeem Viera MD [address] [place] [address] Refill Request Social History Tobacco Use Types [...] hypertension documented in this encounter Care Teams Computer Terminal Operator Relationship Specialty Start Date End Date Bg Calderon MD PCP - General 04/29/16 Ezra Hess DPM [address] [facility] [address] [place] [address] Assigned Musculoskeletal Provider 09/22/20 11/23/20 Mimi Hernandez, ALE, Podiatry/Foot and Ankle Surgery [address] [facility] [address] [place] [address] Assigned Musculoskeletal Provider 11/24/20 05/22/22 documented as of this encounter
[2024-01-25] MEDS: LACTATED RINGERS 1000 ML 1,000 ML 100 ML IV (12:45)
--- NOTE | 2024-01-25 13:17 | W.PM.NB ---
Nerve Block Nerve Block Time Seen by Provider: 12:22 Date Seen: 01/25/24 Type of block requested by surgeon for post-operative analgesia: TAP Side: bilateral Time out performed: Yes Verification of patient name: Yes Verification of date of : Yes Site marking: site marked Name of person performing procedure: Sean Continuous monitoring Was continuous monitoring of O2 sat, B/P, threat monitoring analyst, recorded every 15 minutes?: Yes Procedure Checklist: sterile prep, needles and gloves Ultrasound guided. Images saved: Yes Medications given in 5ml increments after negative aspiration: Marcaine %: 0.25 mL: 30 Needle gauge: 20 and Exparel mL: 10 Patient tolerated procedure well: Yes Additional comments: Needle noted between internal oblique and transversus abdominus. Local spread visualized Block Charges Block Charge (with Pro Fee): TAP Bilateral Use of Ultrasound Machine for Block: Yes- US Guidance/pain block
--- NOTE | 2024-01-25 13:18 | W.ANESCHARGE ---
Anesthesia Charges Start Date/Time Anesthesia Start Date: 01/25/24 Anesthesia Start Time: 12:12 Stop Date/Time Anesthesia Stop Date: 01/25/24 Anesthesia Stop Time: 14:14 Summary Emergency: MDA Extremes of Age - Over 70 or under 1: MDA
--- NOTE | 2024-01-25 14:02 | PM.GSPRC ---
Operative Note Date of procedure: 01/25/24 Pre-op diagnosis: Small-bowel obstruction Post-op diagnosis: Small-bowel obstruction secondary to internal hernia Type of Procedure: 1. Exploratory laparotomy 2. Lysis of adhesions Indications: The patient is a 78-year-old female who developed epigastric pain and vomiting over the last few days. She presented to the emergency department and was found to have what appeared to be a bowel obstruction with possible internal hernia. Given her ongoing pain and imaging findings I recommended exploration. She agreed to proceed. Procedure Description: After discussing the risks and benefits of the procedure, the patient signed informed consent.? The operative site was marked and the patient was brought to the operating room and placed on the operating table in supine position.? Care was taken to pad the patient's pressure points.?? The patient was then intubated by anesthesia.?? The operative site was then prepped and draped in the usual sterile fashion.? A time-out was then performed. An incision was made in the midline from above the umbilicus down through the patient's vertical midline lower abdominal scar. Dissection was taken down into the subcutaneous fat using cautery. The fascia was incised. The peritoneal cavity was then entered sharply using a scissor. There were no adhesions in the upper abdomen, however there were adhesions noted below the umbilicus. There was omentum adherent here. This was taken down with a combination of cautery and sharp dissection with the Metzenbaum scissors. There was a loop of small bowel which was noted to be densely adherent to the anterior abdominal wall in the midline. This was carefully taken down sharply using Metzenbaum scissors. The incision was then able to be extended inferiorly. The patient had a mass of scar tissue in the midline, likely from her prior . There were some filmy small bowel adhesions below this. These were also taken down. Once this was done additional adhesions between the omentum and the anterior abdominal wall were taken down on each side of the abdomen using a combination of cautery 1 able and sharp dissection for small filmy adhesions. The patient was noted to have a small amount of ascites in the abdomen. The small bowel which had been densely adherent to the anterior abdominal wall was examined. This was adherent to the omentum on the transverse colon. There was noted to be a very small decompressed loop of bowel going through here as well as dilated bowel. This was examined and found to be a loop leading to an internal hernia. The omental adhesions between the loops of small bowel and the transverse colon were then divided using cautery. The bowel was then able to be reduced. Proximally the bowel was somewhat red, though did not appear overtly ischemic. The small bowel was run from the terminal ileum to the ligament of Treitz. There were no signs of mass or other cause for obstruction. No other adhesions. The small bowel which had been adherent to the anterior abdominal wall appear somewhat rough with scarring from from the adhesions and adhesiolysis. The bowel was examined for serosal tears. There was not an obvious tear, however more proximally it appeared as though the serosa may have been torn. This area was imbricated using interrupted 3-0 silk suture. And OG tube was placed to decompress the stomach and any enteric contents which flowed proximally with manipulation of the dilated bowel. I confirmed its position in the stomach. There was minimal output per Anesthesia This was then removed prior to extubation. At this point the fascia was closed with running looped 0 Maxon suture. The skin was then closed with 3-0 Vicryl interrupted dermal and 4-0 Monocryl running subcuticular suture. Sterile dressings were then applied. The patient was then woken and transported to the recovery room stable condition. The patient tolerated the procedure well. Findings: Bowel obstruction and volvulus from internal hernia. Adhesions to anterior abdominal wall from prior Bowel appeared viable Surgeon: Dorene Bassett MD Estimated blood loss (mL): 10 Condition: stable Disposition: PACU
--- NOTE | 2024-01-25 14:16 | P.ANES_ITS ---
Anesthesia Charges Start Date/Time Anesthesia Start Date: 01/25/24 Anesthesia Start Time: 12:12 Stop Date/Time Anesthesia Stop Date: 01/25/24 Anesthesia Stop Time: 14:14 Summary Emergency: MARKETING ACCOUNT EXECUTIVE Extremes of Age - Over 70 or under 1: MARKETING ACCOUNT EXECUTIVE
--- NOTE | 2024-01-25 14:16 | W.ANESCHARGE ---
Anesthesia Charges Start Date/Time Anesthesia Start Date: 01/25/24 Anesthesia Start Time: 12:12 Stop Date/Time Anesthesia Stop Date: 01/25/24 Anesthesia Stop Time: 14:14 Summary Emergency: REHABILITATION ASSISTANT Extremes of Age - Over 70 or under 1: REHABILITATION ASSISTANT
--- OUTSIDE RECORDS SUMMARY | 2024-01-25 16:51 | XMS_ITS | Encounter Summary ---
Author Organization [facility] Address [address] [place] [address]. [place] [address] Care Team Providers Care Rn Admissions Name Role Phone Bg Calderon MD Primary Care Provider [phone] Ezra Hess DPM Unavailable [phone] Mimi Hernandez DPM, Podiatry /Foot and Ankle Surgery Unavailable Reason for Visit * Reason Comments Refill Request Encounter Details Date Type Department Care Team (Late st Contact Info) Description 10/12/2011 [facility] [address] [place] [address]. [address] [place] [address] Hakeem Viera MD [address] [place] [address] Refill Request Social History Tobacco Use Types [...] hypercholesterolemia documented in this encounter Care Teams Rn Admissions Relationship Specialty Start Date End Date Bg Calderon MD PCP - General 04/29/16 Ezra Hess DPM [address] [facility] [address] [place] [address] Assigned Musculoskeletal Provider 09/22/20 11/23/20 Mimi Hernandez DPM, Podiatry/Foot and Ankle Surgery [address] [facility] [address] [place], [place] [address] Assigned Musculoskeletal Provider 11/24/20 05/22/22 documented as of this encounter
--- OUTSIDE RECORDS SUMMARY | 2024-01-25 16:51 | XMS_ITS | Clinical Summary ---
Author Organization [facility] Address [address] [place], [place] [address] [address] Care Team Providers Care Tooler Name Role Phone Bg Calderon MD Primary Care Provider [phone] Allergies Active Allergy Reactions Criticality Noted Date Comments Penicillins Rash 11/26/2006 Other reaction(s): Other - Describe In Comment Field Hands and feet get red and swollen. Juan Banda ADMINISTRATIVE SERVICES DIRECTOR 2:40 PM 03/18/2012 Medications Medication Sig Dispensed [...] 2 times daily Reported on 06/29/2016 Active [place]-3 Fatty Acids (FISH OIL) 1200 MG CAPS [...] MULTIDOSE 0.05 % ophthalmic emulsion 07/25/2020 Active [place]-3 Fatty Acids (FISH OIL) 1200 MG capsule [...] AM CDT Pulse 57 06/29/2016 7:10 PM CIGARETTE INSPECTOR Temperature 36.6 ??C (97.8 ??F) 06/29/2016 7:10 PM CS T Respiratory Rate 18 10/20/2013 9:05 AM CDT Oxygen Saturation 97% 06/29/2016 7:10 PM CIGARETTE INSPECTOR Inhaled Oxygen Concentration - - Weight 82.3 [...] BILATERAL W/ JEREMIAS Routine 04/29/2016 11:05 AM CIGARETTE INSPECTOR Visit for screening mammogram DX BONE DENSITY Routine 04/29/2016 10:37 AM CIGARETTE INSPECTOR Asymptomatic postmenopausal state COLONOSCOPY Routine 02/20/2013 10:25 AM CDT LIPID PROFILE Routine 09/28/2011 7:32 AM CDT Pure hypercholesterolemia BASIC METABOLIC PANEL Routine 02/20/2008 7:06 AM CDT from Last 3 Months or Most Recently Relevant to Health Maintenance Results * MA Screen Bilateral w/Jeremias (04/29/2016 11:05 AM CIGARETTE INSPECTOR) Anatomical Region Laterality Modality Breast Bilateral Mammography Impressions 04/29/2016 11:49 AM CIGARETTE INSPECTOR IMPRESSION: BI-RADS CATEGORY: 1 - ??NEGATIVE. RECOMMENDED FOLLOW-UP: Annual Mammography. The patient will be notified of the results. TRISTON WEI Narrative 04/29/2016 11:49 AM CIGARETTE INSPECTOR Examination: Bilateral digital screening mammography with computer [...] AHMET * DX Hip/Pelvis/Spine (04/29/2016 10:37 AM CIGARETTE INSPECTOR) Anatomical Region Laterality Modality Dexa Computed Radiogr aphy Narrative 04/30/2016 11:25 AM CIGARETTE INSPECTOR DX Hip/Pelvis/Spine Order #: [id number] Study Notes? Ericka Jasmine on 04/29/2016 10:45 AM ?? BONE DENSITOMETRY [facility] PAPER PATTERN FOLDER & SURGERY- YVONNE [address] [address] 04/29/2016 PATIENT: Tj Stoll CHART: [id number] ?? :?? 1945 AGE:?? 71 year old SEX:?? female REFERRING PROVIDER:?? Dr Diallo PROCEDURE:?? Bone density scanning was performed using DXA technology of the lumbar spine and hip.?? Scanning was performed on a [employer] scanner.?? Reporting is completed in the form [...] to another DXA performed on the same [employer]?? machine on 06/15/2011. IMPRESSION Z score is within the expected range for age Z score is below the expected range for age David Diallo MD ?? Discussed here Alvaro Diallo MD IMG DEXA ORDERABLES * COLONOSCOPY (02/20/2013 10:25 AM CDT) Pathologist [facility] COLONOSCOPY [facility] Endoscopy Department Patient Name: Tj Stoll ? [...] Performing Lab Site ID: CB Lab Name: [facility] Address: [address] [place] [phone] Pbx Teacher: Matt Weinberg M.D. Hakeem Viera MD LAB - BLOOD ORDERABL ES Performing Organization Address City/[facility] Co de Phone Number ANGELIQUE DURBIN [address] [place] [phone] * (ABNORMAL) Basic metabolic panel (02/20/2008 7:06 [...] Recently Relevant to Health Maintenance Care Teams Tooler Relationship Specialty Start Date End Date Bg Calderon MD PCP - General 04/29/16
--- OUTSIDE RECORDS SUMMARY | 2024-01-25 16:51 | XMS_ITS | Referral Summary ---
Author Organization [place] Address [address] [place], [place] [address] [address] Care Team Providers Care Manufacturing Production Technician Name Role Phone Bg Calderon MD Primary Care Provider [phone] Allergies Active Allergy Reactions Criticality Noted Date Comments Penicillins Rash 11/26/2006 Other reaction(s): Other - Describe In Comment Field Hands and feet get red and swollen. Juan Banda DIRECTOR PROCESS 2:40 PM 03/18/2012 Medications Medication Sig Dispensed [...] 2 times daily Reported on 06/29/2016 Active [place]-3 Fatty Acids (FISH OIL) 1200 MG CAPS [...] MULTIDOSE 0.05 % ophthalmic emulsion 07/25/2020 Active [place]-3 Fatty Acids (FISH OIL) 1200 MG capsule [...] AM CDT Pulse 57 06/29/2016 7:10 PM LAST MODEL DEPARTMENT SUPERVISOR Temperature 36.6 ??C (97.8 ??F) 06/29/2016 7:10 PM CS T Respiratory Rate 18 10/20/2013 9:05 AM CDT Oxygen Saturation 97% 06/29/2016 7:10 PM LAST MODEL DEPARTMENT SUPERVISOR Inhaled Oxygen Concentration - - Weight 82.3 kg (181 lb 6.4 oz) 11/15/2020 1:25 P M CDT Height 156.2 cm (5' 1.5) 11/15/2020 1:25 PM CDT Body Mass Index 33.72 11/15/2020 1:25 PM CDT Plan of Treatment Not on file Procedures Procedure Name Priority Date/Time Associated Diagnosis Comments MA SCREENING BILATERAL W/ JEREMIAS Routine 04/29/2016 11:05 AM LAST MODEL DEPARTMENT SUPERVISOR Visit for screening mammogram DX BONE DENSITY Routine 04/29/2016 10:37 AM LAST MODEL DEPARTMENT SUPERVISOR Asymptomatic postmenopausal state COLONOSCOPY Routine 02/20/2013 10:25 AM CDT LIPID PROFILE Routine 09/28/2011 7:32 AM CDT Pure hypercholesterolemia BASIC METABOLIC PANEL Routine 02/20/2008 7:06 AM CDT from Last 3 Months or Most Recently Relevant to Health Maintenance Results * MA Screen Bilateral w/Jeremias (04/29/2016 11:05 AM LAST MODEL DEPARTMENT SUPERVISOR) Anatomical Region Laterality Modality Breast Bilateral Mammography Impressions 04/29/2016 11:49 AM LAST MODEL DEPARTMENT SUPERVISOR IMPRESSION: BI-RADS CATEGORY: 1 - ??NEGATIVE. RECOMMENDED FOLLOW-UP: Annual Mammography. The patient will be notified of the results. TRISTON WEI Narrative 04/29/2016 11:49 AM LAST MODEL DEPARTMENT SUPERVISOR Examination: Bilateral digital screening mammography with computer [...] LEO * DX Hip/Pelvis/Spine (04/29/2016 10:37 AM LAST MODEL DEPARTMENT SUPERVISOR) Anatomical Region Laterality Modality Dexa Computed Radiogr aphy Narrative 04/30/2016 11:25 AM LAST MODEL DEPARTMENT SUPERVISOR DX Hip/Pelvis/Spine Order #: [id number] Study Notes? Ericka Jasmine on 04/29/2016 10:45 AM ?? BONE DENSITOMETRY [facility]- [place] [address] [place] [address] 04/29/2016 PATIENT: Tj Stoll CHART: [id number] ?? :?? 1945 AGE:?? 71 year old SEX:?? female REFERRING PROVIDER:?? Dr Diallo PROCEDURE:?? Bone density scanning was performed using DXA technology of the lumbar spine and hip.?? Scanning was performed on a [employer] scanner.?? Reporting is completed in the form [...] to another DXA performed on the same [employer]?? machine on 06/15/2011. IMPRESSION Z score is within the expected range for age Z score is below the expected range for age David Diallo MD ?? Discussed here Alvaro Diallo MD IMG DEXA ORDERABLES * COLONOSCOPY (02/20/2013 10:25 AM CDT) COLONOSCOPY [facility] End[facility] Department Patient Name: Tj Stoll [...] Performing Lab Site ID: CB Lab Name: [facility] Address: [address] [place] [id number] Wetlands Technician: Matt Weinberg M.D. Hakeem Viera MD LAB - BLOOD ORDERABL ES Performing Organization Address [facility]/ZIP Co de Phone Number ANGELIQUE DURBIN [address] [place] [phone] * (ABNORMAL) Basic metabolic panel (02/20/2008 7:06 [...] Recently Relevant to Health Maintenance Care Teams Manufacturing Production Technician Relationship Specialty Start Date End Date Bg Calderon MD PCP - General 04/29/16
--- OUTSIDE RECORDS SUMMARY | 2024-01-25 16:52 | XMS_ITS | Encounter Summary ---
Author Organization [place] Address [address] [place] [address]. [place] [address] Care Team Providers Care Director Web Name Role Phone Bg Calderon MD Primary Care Provider [phone] Ezra Hess DPM Unavailable [phone] Mimi Hernandez DPM, Podiatry /Foot and Ankle Surgery Unavailable Reason for Visit * Reason Comments Refill Request Encounter Details Date Type Department Care Team (Late st Contact Info) Description 07/13/2011 [facility] [address] [place] [address]. [address] [place] [address] Hakeem Viera MD [address] [place] [address] Refill Request Social History Tobacco Use Types [...] hypertension documented in this encounter Care Teams Director Web Relationship Specialty Start Date End Date Bg Calderon MD PCP - General 04/29/16 Ezra Hess DPM [id number] [facility] [address] [place] [address] Assigned Musculoskeletal Provider 09/22/20 11/23/20 Mimi Hernandez, ALE, Podiatry/Foot and Ankle Surgery [address] [facility] [address] [place] [address] Assigned Musculoskeletal Provider 11/24/20 05/22/22 documented as of this encounter
--- OUTSIDE RECORDS SUMMARY | 2024-01-25 16:52 | XMS_ITS | Clinical Summary ---
Author Organization [facility] Address [place], [place] [address] Care Team Providers Care Bead Inspector Name Role Phone YenAbhishek olvera Sen MARLEYC Primary Care Provider [phone] Bg Calderon MD Unavailable [phone] Alvaro Diallo MD Unavailable [phone] Allergies Active Allergy Reactions Criticality Noted Date Comments Penicillins Other - Describe In Comment Field 03/18/2012 Hands and feet get red and swollen. Juan Blunt RAM CAR OPERATOR 2:40 PM 03/18/2012 Medications Medication Sig Dispensed [...] Celiac Sprue or H.Pylori (Dr. Angel - [facility]) 10/22/16 - Hgb to 11.6 and [...] Right Hip OA - Cortisone injection 05/08/14 ([facility]) Tinnitus 05/25/2014 Hiatal hernia with Associated GERD 05/25/2014 Overview (05/25/2014): Does well with sleeping sitting up Plantar fasciitis 05/25/2014 Overview (10/21/2016): No problem if not going barefoot CAD (coronary artery disease) by imaging 015 Overview (05/25/2014): CT Coronary Artery 09/2013 ([facility]): Calcium score 50-75%tile. Mild stenosis <25% in LAD and circumflex. Venous insufficiency 05/25/2014 HTN (hypertension) Hypercholesteremia Overview (07/27/2014): Previous Simvastatin 20mg, changed to Atorvastatin 40mg 07/27/[address] Coronary Calcium Score Resolved Problems Problem Noted Date Diagnosed Date Resolved Date Colon cancer screening in 14 with 5 year fu, 4 05/25/2014 Encounters Date Type Department Care Team Description 01/20/2024 Telephone [facility] [address] [place] [address] Cornel Harding MD Results 12/23/2023 9:30 AM CDT Office Visit [facility] [address] [place] [address] Cornel Harding MD 12/23/2023 Orders Only [facility] [address] [place] [address] Cornel Harding MD 1 scan: (1-Ord) ZIO REPORT 11/25/2023 11:00 AM CDT Ancillary Procedure [facility] [address] [facility] [address] [place] [address] 11/25/2023 10:40 AM CDT Orders Only [facility] [address] [facility] [address] [place] [address] Lab 11/25/2023 Travel 11/18/2023 Nurse/Clinic Staff Only [facility] [address] [place] [address] Rupert Marcial MD 11/18/2023 Telephone [facility] [address] [place] [address] Rupert Marcial MD Results (Stress echo) 11/09/2023 1:00 PM CDT Ancillary Procedure [facility] [address] [place] [address] 11/09/2023 Travel from Last 3 Months Immunizations [...] DT Respiratory Rate 14 03/06/2013 11:03 AM RENT CONTROL OFFICE MANAGER Oxygen Saturation 99% 11/16/2013 8:24 AM CDT [...] Tdap Completed 01/31/2009 (Comp leted outside of [facility]), 01/31/2009 Pneumococcal series for age 65+ Completed 5, 03/18/2012 DEXA/DXA scan for age 65+ Completed 2016 (Completed outside of [facility]), 09/15/2013 Procedures Procedure Name Priority Date/Time Associated Diagnosis Comments EXTENDED HOLTER Routine 01/03/[address] CARDIAC CORONARY ARTERIES DUAL READ Routine 11/25/2023 12:12 PM CDT Coronary artery disease involving [place] coronary artery of [place] heart without angina pectoris HTN (hypertension) Chest [...] (Electronic Signature) Narrative 11/28/2023 9:41 PM CDT ?[facility] ? Cardiac CT Report ??MRN: ?[id number] ?Name: ? TJ STOLL ?: ?Scan Date: ?Accession Number: ?[id number] ?Status: ?Final ? Electronically signed by Sergio [...] TYPE: ??Calcium score, Coronary CT Angiography SCANNER [employer] SALES BEAUTY ADVISOR: ??SIEMENS SCANNER MODEL: ??[employer] DOSE REDUCTION ALGORITHM: ??Prospective/Nyhr-jgu-gzahn PHASE UNITS: ??% START PHASE: ??65 % [...] ??RUPERT MARCIAL ?TECHNOLOGIST: ??Alana Loredo Patient Account ?[id number] ICD10 Codes ?I25.10, I10, R07.9 Report generated [...] conjunction with the services provided by the [facility] ([facility]). CLINICAL HISTORY: ??Cardiac CT over-read. ? FINDINGS: Aorta: Normal caliber with no signs of dissection. Pulmonary arteries:No filling defects, bolus timing may somewhat limit evaluation. Mediastinum:No suspicious adenopathy. Lungs and pleural structures: Clear, no effusions Rupert Marcial MD CT * (ABNORMAL) CREATININE,ISTAT (11/25/2023 10:46 AM CDT) CREATININE, POCT 0.80 0.57 - 1.11 mg/dL 11/25/2023 10:51 AM CDT [facility] Comment:Caution: Patients ta vasyl Hydroxyurea have falsely increased iStat Creatinine results. Verify creatinine results ordering a Creatinine (60012.2) eGFR 76(L) >90 mL/min/1.7 3m2 11/25/2023 10:51 AM CDT [facility] Comment:As of 2021, eG FR is calculated by the CKD-EPI creatinine equation without race adjustment. eGFR can be influenced by muscle mass, exercise, and diet. The reported eGFR is an estimation only and is only applicable if the renal function is stable. Blood BLOOD SPECIMEN / Unknown 11/25/2023 10:46 AM CDT 11/25/2023 10:51 AM CDT Rupert Marcial MD CHEMISTRY [facility] [address] [id number], * ECHO STRESS EXERCISE WO CONTRAST (11/09/2023 1:35 PM CDT) EJECTION FRACTION 55 - 60% Anatomical Region Laterality Modality Ultrasound 11/09/2023 1:09 PM CDT Narrative 11/09/2023 2:05 PM CDT STRESS ECHOCARDIOGRAM TJ STOLL ?Accession#: ?? [id number] : ?1945 78 years Study Date: ?? 11/09/2023 1:09:11 PM Gender: F ? BP: ? 163/82 mmHg Height: 155.00 cm ? BSA: ?1.81 m? ? ? Weight: 82.00 kg ?Tech: ? MTS ?Referring MD: ABHISHEK YEN Site: ? [facility] Reading Location: [facility] Patient Location: [...] % of Max ? 102% Double Product [id number] Echo Findings:This is a positive stress echo [...] [place] [address]. Maximum stress test with 102.5% of age [...] . This study was interpreted by an [facility] accredited facility. ??Final ?? Procedure Note Aleida Molina MD - 11/09/2023 STRESS ECHOCARDIOGRAM TJ STOLL : 1945 78 years Study Date: 11/09/2023 1:09:11 PM Gender: F BP: 163/82 mmHg Height: 155.00 cm BSA: 1.81 m? ? ? Weight: 82.00 kg Tech: [facility] Referring MD: ABHISHEK YEN Site: [facility] Reading Location: [facility] Patient Location: Outpatient. Procedure: Stress Echo. Sammy [...] 142 % of Max 102% Double Product [id number] Echo Findings:This is a positive stress echo [...] 0 sec to stage I according to [facility] stress echo protocol. Test terminated due to fatigue. 4.6 METS wereachieved. The patient achieved a heart rate of 146 bpm which is 102.5% ofmaximum predicted heart rate. Maximum systolic blood pressure [place] 173 [place] [address]. Maximum stress test with 102.5% ofage predicted [...] . This study was interpreted by an [facility] accredited facility. Final Abhishek Yen PA-C [...] and hip. Scanning was performed on a [employer] Scanner. Reporting is completed in the form [...] and hip. Scanning was performed on a [employer] Scanner. Reportingis completed in the form of [...] Documents on File Type Date Recorded Patient Window Dresser Expl anation Healthcare Directive 02/15/2012 2:57 PM Power of Tearoom Host 02/15/2012 2:54 PM Care Teams Bead Inspector Relationship Specialty Start Date End Date Abhishek Yen PA-C [address] [place] [address] PCP - General Physician Repulping Supervisor 09/23/23 Bg Calderon MD [address] [address] Internal Medicine 09/23/23 Alvaro Diallo MD [address] [address] MACHINE MARKER Obstetrics and Gynecology 05/25/14
--- NOTE | 2024-01-25 18:16 | PM.IMCN1 ---
Date of Consult Patient: [facility] Patient Consult date: 01/25/24 Requesting Physician: General Surgery Primary Care Provider: Yael Yen PA-C Consult Narrative Narrative: Tj Stoll is a 78 year old female admitted to the hospital with 2 day history of abdominal pain and vomiting. Symptoms began 2 days ago in the afternoon with abdominal fullness and progressed to recurrent vomiting. She has been unable to maintain p.o. intake. Evaluation emergency department day showed small bowel obstruction and possible ischemic changes. She was taken directly to the OR by Dr. Bassett where she underwent exploratory laparotomy with lysis of adhesions. No previous history of bowel obstruction. Remote history 50 years ago of Caesarean section. Previous tubal ligation. No other bowel surgery. This summer she had significant cardiac evaluation prior to thyroid surgery. Began with an echocardiogram showing preserved ejection fraction and no significant valvular disease. She had a stress echo which was positive for ischemia. She underwent CT coronary angiogram which showed nonobstructive coronary disease. She had a Zio patch for second-degree heart block. She was seen by nutrition program instructor on December 22 with recommended evaluation for sleep apnea and modify heart disease risk factors. Review of Systems Narrative: Prior to the onset of abdominal pain and vomiting she reports generally doing well recently. PFSH PFSH Medical History Positive Lyme disease serology ?R76.8 - Other specified abnormal immunological findings in serum (ICD-10) Increased frequency of urination ?R35.0 - Frequency of micturition (ICD-10) Memory loss ?R41.3 - Other amnesia (ICD-10) History of compression fracture of spine ?Z87.81 - Personal history of (healed) traumatic fracture (ICD-10) Iron deficiency anemia ?D50.9 - Iron deficiency anemia, unspecified (ICD-10) Amnesia ?R41.3 - Other amnesia (ICD-10) Health care directive on file ?Z78.9 - Other specified health status (ICD-10) Surgical History History of ?Z98.891 - History of uterine scar from previous surgery (ICD-10) History of biopsy ?Z98.890 - Other specified postprocedural states (ICD-10) Status post tubal ligation ?Z98.51 - Tubal ligation status (ICD-10) Status post total bilateral knee replacement (2007) ?Z96.653 - Presence of artificial knee joint, bilateral (ICD-10) Status post tonsillectomy and adenoidectomy ?Z90.89 - Acquired absence of other organs (ICD-10) History of colonoscopy ?Z98.890 - Other specified postprocedural states (ICD-10) History of bilateral cataract extraction ?Z98.41 - Cataract extraction status, right eye (ICD-10) ?Z98.42 - Cataract extraction status, left eye (ICD-10) Family History Father Colorectal cancer Mother Heart disease Lymphoma Aunt Heart disease Social History (Updated 01/25/24 @ 18:34 by Lenard Leiva MD) Narrative: Lives in [place] in a house with her daughter, son-in-law and granddaughter. Code status is witnessed arrest only. Daughter,Claritza, is healthcare power of trust and estates attorney Does not use illicit drugs Nonsmoker Rarely consumes alcohol What is your current living situation?: I presently have a place to live Problems where you live: no known problems In the past 12 months, utilities in danger of being shut off: no In past 12 months, lack of transportation kept you from medical appts, meetings, work, or getting things needed for daily living: no In the past 12 mos, have been you worried that your food would run out before you had money to buy more?: never true In the past 12 mos, the food you bought just didn't last and you didn't have money to buy more?: never true Smoking Status: Never smoker Non-prescribed substance use: denies use How often does anyone, including family, friends and others, physically hurt you: never How often does anyone, including family, friends and others, insult or talk down to you: never How often does anyone, including family, friends and others, threaten you with harm: never How often does anyone, including family, friends and others, scream or curse at you: never Little interest or pleasure in doing things: not at all Feeling down, depressed, or hopeless: not at all Meds Home Medications and Allergies Home Medications ?Medication ?Instructions ?Recorded ?Confirmed ?Type cyclosporine 0.05 % eye drops 1 drp ophthalmic (eye) Q12H 04/01/22 01/25/24 History (Restasis MultiDose) calcium 600 mg-D3 20 mcg-magnesium tab PO DAILY 09/30/23 12/23/23 History 40 dt-erkvqw-itam-zinc chew tablet omega 3-wcr-szt-fish oil 60 mg-90 1 cap PO DAILY 09/30/23 01/25/24 History mg-500 mg capsule (Fish Oil) amlodipine 2.5 mg tablet 2.5 mg PO HS 01/25/24 01/25/24 History atorvastatin 40 mg tablet 40 mg PO DAILY 01/25/24 01/25/24 History Allergies Allergy/AdvReac Type Severity Reaction Status Date / Time penicillin G Allergy Verified 01/25/24 09:55 Exam Narrative: Exam Narrative: She is alert and oriented. She gives her own history. Oropharynx with small airway. Dry mucous membranes. Neck is supple without mass or adenopathy. Respirations are clear to auscultation. Cardiovascular: S1, S2, regular rate and rhythm. No murmur gallop or rub. Abdomen: Midline incision with bandage in place. Bowel sounds are diminished. She has tenderness and guarding consistent with her postoperative status. Extremities with good perfusion and pulses. Trace edema. She moves all 4 extremities well. No rash Const: Vital Signs, click to edit/add: Vital Signs - 24 hr 01/25/24 08:07 01/25/24 11:44 01/25/24 14:10 Temperature 97.8 F 98.8 F Pulse Rate 63 Pulse Rate [Right Pulse Oximeter] 89 84 Respiratory Rate 18 18 25 H Blood Pressure 132/59 L Blood Pressure [Ri ght Upper Arm] 115/70 136/76 Pulse Oximetry 97 96 93 Oxygen Delivery Me thod Room Air Room Air Room Air 01/25/24 14:15 01/25/24 14:20 01/25/24 14:25 Temperature Pulse Rate 61 57 L 59 L Pulse Rate [Right Pulse Oximeter] Respiratory Rate 25 H 14 14 Blood Pressure 140/70 H 128/59 L 132/54 L Blood Pressure [Ri ght Upper Arm] Pulse Oximetry 94 93 93 Oxygen Delivery Me thod Room Air Room Air Room Air 01/25/24 14:30 01/25/24 14:35 01/25/24 14:38 Temperature 99.4 F 99.4 F Pulse Rate 63 66 62 Pulse Rate [Right Pulse Oximeter] Respiratory Rate 14 16 16 Blood Pressure 119/60 129/63 127/78 Blood Pressure [Ri ght Upper Arm] Pulse Oximetry 94 94 95 Oxygen Delivery Me thod Room Air Room Air Room Air 01/25/24 14:50 01/25/24 15:00 01/25/24 15:00 Temperature 97.9 F 97.9 F Pulse Rate 61 71 Pulse Rate [Right Pulse Oximeter] Respiratory Rate 18 18 18 Blood Pressure 120/68 130/66 Blood Pressure [Ri ght Upper Arm] Pulse Oximetry 94 94 93 Oxygen Delivery Me thod Room Air Room Air Room Air 01/25/24 15:15 01/25/24 15:30 01/25/24 15:45 Temperature 98.3 F 98.2 F 98.1 F Pulse Rate 69 70 75 Pulse Rate [Right Pulse Oximeter] Respiratory Rate 18 18 18 Blood Pressure 142/71 H 138/66 128/70 Blood Pressure [Ri ght Upper Arm] Pulse Oximetry 92 94 93 Oxygen Delivery Me thod Room Air Room Air Room Air 01/25/24 16:30 01/25/24 17:00 01/25/24 17:29 Temperature 98.7 F 98.4 F Pulse Rate 78 82 Pulse Rate [Right Pulse Oximeter] Respiratory Rate 18 18 18 Blood Pressure 126/68 141/69 H Blood Pressure [Ri ght Upper Arm] Pulse Oximetry 91 82 L 94 Oxygen Delivery Me thod Room Air Room Air Room Air Documenting provider has reviewed patient's vital signs: yes Labs Labs: Short CBC 01/25/24 Range/Units 08:50 WBC 8.72 (4.50-11.00) K/uL Hgb 14.7 (12.0-16.0) gm/dL Hct 45.3 (33.0-51.0) % Plt Count 229 (140-440) K/uL BMP 01/25/24 08:50 Sodium 138 Potassium 3.5 L Chloride 107 Carbon Dioxide 21 BUN 32 H Creatinine 0.8 Glucose 154 H Calcium 9.5 Liver Function 01/25/24 01/25/24 01/25/24 Range/Units 08:50 08:50 08:50 Total Bilirubin 1.5 Cancelled (0.1-1.5) mg/dL Direct Bilirubin 0.3 Cancelled (0.0-0.5) mg/dL AST 33 (12-35) U/L ALT (4-35) U/L Alkaline Phosphatase (40-150) U/L Albumin (3.3-5.0) g/dL 01/25/24 01/25/24 01/25/24 Range/Units 08:50 08:50 08:50 Total Bilirubin (0.1-1.5) mg/dL Direct Bilirubin (0.0-0.5) mg/dL AST Cancelled (12-35) U/L ALT 16 Cancelled (4-35) U/L Alkaline Phosphatase 80 Cancelled (40-150) U/L Albumin 4.3 (3.3-5.0) g/dL 01/25/24 Range/Units 08:50 Total Bilirubin (0.1-1.5) mg/dL Direct Bilirubin (0.0-0.5) mg/dL AST (12-35) U/L ALT (4-35) U/L Alkaline Phosphatase (40-150) U/L Albumin Cancelled (3.3-5.0) g/dL Assessment and Plan Assessment and plan (1) Bowel obstruction: Problem comment: Status post lysis of adhesions. Co manage postoperative care with surgery Status: Acute (2) 2nd degree AV block: Problem comment: Occurred during upper endoscopy, probably vagal mediated. Consider sleep study as an outpatient Status: Acute (3) Hypertension: Problem comment: Resume home medications, lisinopril and amlodipine as tolerated Status: Acute (4) Coronary artery disease: Problem comment: Followed by [facility]: Abnormal stress test and CTA showing nonobstructive coronary disease 2023. Not currently symptomatic. Status: Acute Plan Continue in hospital for management of small bowel obstruction following surgery for lysis of adhesions. Coordinate care with surgery. Manage chronic medical problems and complications of surgery as needed Total Time Spent Total Time Spent: Total time spent today is 65 minutes in reviewing records and discussing with patient family and other providers ongoing management of small-bowel obstruction and chronic medical problems
[2024-01-25] MEDS: OMEPRAZOLE 20 MG CAPSULE DR 40 MG PO (18:55)
[2024-01-25] MEDS: POTASSIUM CHLORIDE 10 MEQ/100 ML PIGGYBACK 100 MEQ IVPB (18:56)
[2024-01-25] MEDS: AMLODIPINE 5 MG TABLET 2.5 MG PO (21:16)
[2024-01-25] MEDS: CARBOXYMETHYLCELLULOSE (REFRESH PLUS) TEARS 1 DROP EYE-BOTH (21:17)
--- NOTE | 2024-01-25 23:17 | PC.NURSE ---
Pt pleasant, alert oriented and vitally stable. Up to the bathroom via 1a, tolerated well. Diet is sips and ice chips, tolerating well. SCDs are on calfs bilaterally. Pt was up to chair, tolerated well. Surgical site is clean dry and intact. Pt rates pain 1-2/10, tolerating well.
[2024-01-26] VITALS (12 sets, daily range): BP systolic 123–157; BP diastolic 66–88; PULSE 84–94; RESP 16–22; TEMP 36.6–37.1; O2SAT 91–96
--- NOTE | 2024-01-26 04:24 | PC.NURSE ---
Pt rested well this night. Pain reported at 05/05. No N/V. Up to BR voiding. Midline CDI. Pleasant and cooperative. Afebrile.
[2024-01-26] MEDS: LACTATED RINGERS 1000 ML 1,000 ML 125 ML IV ×2 (06:05→14:39)
[2024-01-26 07:08] LABS: Basophils Absolute Auto 0.01 K/uL (0.00-0.30); Basophils Percent Auto 0.1 % (0.0-3.0); Hematocrit 42.3 % (33.0-51.0); Hemoglobin* 13.8 gm/dL (12.0-16.0); Immature Granulocytes Abs Auto 0.01 K/uL (0.00-0.30); Immature Granulocytes Pct Auto 0.1 %; Lymphocytes Percent Auto 10.3 % (20-44); Mean Corpuscular HGB Conc 33 gm/dL (32-36); Mean Corpuscular Hemoglobin 31 pg (26-34); Mean Corpuscular Volume 94 fL (80-100); Monocytes Percent Auto 10.3 % (0.0-11.0); Neutrophils Percent Auto 79.2 % (42.0-72.0); Platelet Count* 242 K/uL (140-440); RDW Coefficient of Variation % 12.9 % (11.5-15.5); Red Blood Count 4.52 m/uL (4.00-5.20); White Blood Count* 10.13 K/uL (4.50-11.00)
[2024-01-26 07:15] LABS: Slide Review Reflex No
[2024-01-26 07:22] LABS: Chloride* 108 mmol/L (96-114)
[2024-01-26 07:23] LABS: Potassium* 4.2 mmol/L (3.6-5.1); Sodium* 137 mmol/L (135-149)
[2024-01-26 07:25] LABS: Creatinine* 0.6 mg/dL (0.5-1.5); Est. Creatinine Clearance* 35.55; Estimated Glomerular Filt Rate 92 ml/min
[2024-01-26 07:26] LABS: Anion Gap 3 mEq/L (7-15); Blood Urea Nitrogen* 26 mg/dL (7-30); Calcium* 8.7 mg/dL (8.4-10.6); Carbon Dioxide* 26 mmol/L (20-32); Glucose* 118 mg/dL (60-115)
--- NOTE | 2024-01-26 08:14 | P.GSPN_ITS ---
Documented by User: Jacinda Mota 01/26/24 08:38 Subjective Subjective Time Seen by Provider: 08:00 Date Seen: 01/26/24 Patient reports: still having pain, voiding w/o difficulty, no flatus and no bowel movement Interval history: Tj, a 78 year old female, is post op day 1 from exploratory laparotomy due to a small bowel obstruction. She states she is still having epigastric pain. Rates it a 2 and it is aggravated by moving and coughing. Denies N/V, CP, SOB, fever, or chills. She has been able to get up to use the bathroom and denies urinary symptoms. Denies having had a bowel movement or passing gas. Exam Narrative: Exam Narrative: General: Sitting in bed. In no acute distress. Answering questions appropriately. Cardio: RRRR. S1 and S2 normal. Respiratory: Clear to auscultation. No wheezing or rhonchi. GI: Gauze and tape over surgical incision. No erythema or swelling surrounding dressing. BS present. Non-distended. TTP over epigastric region and incision site. Const: Vital Signs, click to edit/add: Vital Signs - 24 hr 01/25/24 11:44 01/25/24 14:10 01/25/24 14:15 Temperature 98.8 F Pulse Rate 63 61 Pulse Rate [Right Pulse Oximeter] 84 Respiratory Rate 18 25 H 25 H Blood Pressure 132/59 L 140/70 H Blood Pressure [Le ft Arm] Blood Pressure [Ri ght Upper Arm] 136/76 Pulse Oximetry 96 93 94 Oxygen Delivery Me thod Room Air Room Air Room Air 01/25/24 14:20 01/25/24 14:25 01/25/24 14:30 Temperature 99.4 F Pulse Rate 57 L 59 L 63 Pulse Rate [Right Pulse Oximeter] Respiratory Rate 14 14 14 Blood Pressure 128/59 L 132/54 L 119/60 Blood Pressure [Le ft Arm] Blood Pressure [Ri ght Upper Arm] Pulse Oximetry 93 93 94 Oxygen Delivery Me thod Room Air Room Air Room Air 01/25/24 14:35 01/25/24 14:38 01/25/24 14:50 Temperature 99.4 F 97.9 F Pulse Rate 66 62 61 Pulse Rate [Right Pulse Oximeter] Respiratory Rate 16 16 18 Blood Pressure 129/63 127/78 120/68 Blood Pressure [Le ft Arm] Blood Pressure [Ri ght Upper Arm] Pulse Oximetry 94 95 94 Oxygen Delivery Me thod Room Air Room Air Room Air 01/25/24 15:00 01/25/24 15:00 01/25/24 15:15 Temperature 97.9 F 98.3 F Pulse Rate 71 69 Pulse Rate [Right Pulse Oximeter] Respiratory Rate 18 18 18 Blood Pressure 130/66 142/71 H Blood Pressure [Le ft Arm] Blood Pressure [Ri ght Upper Arm] Pulse Oximetry 94 93 92 Oxygen Delivery Me thod Room Air Room Air Room Air 01/25/24 15:30 01/25/24 15:45 01/25/24 16:30 Temperature 98.2 F 98.1 F 98.7 F Pulse Rate 70 75 78 Pulse Rate [Right Pulse Oximeter] Respiratory Rate 18 18 18 Blood Pressure 138/66 128/70 126/68 Blood Pressure [Le ft Arm] Blood Pressure [Ri ght Upper Arm] Pulse Oximetry 94 93 91 Oxygen Delivery Me thod Room Air Room Air Room Air 01/25/24 17:00 01/25/24 17:29 01/25/24 19:00 Temperature 98.4 F 98.7 F Pulse Rate 82 89 Pulse Rate [Right Pulse Oximeter] Respiratory Rate 18 18 18 Blood Pressure 141/69 H 139/72 Blood Pressure [Le ft Arm] Blood Pressure [Ri ght Upper Arm] Pulse Oximetry 82 L 94 89 Oxygen Delivery Me thod Room Air Room Air Room Air 01/25/24 20:00 01/25/24 21:00 01/25/24 23:39 Temperature 98.7 F 98.1 F 97.9 F Pulse Rate 86 89 Pulse Rate [Right Pulse Oximeter] 78 Respiratory Rate 18 18 16 Blood Pressure 112/62 120/67 Blood Pressure [Le ft Arm] 122/51 L Blood Pressure [Ri ght Upper Arm] Pulse Oximetry 95 95 96 Oxygen Delivery Me thod Room Air Room Air Room Air 01/25/24 23:43 01/25/24 23:44 01/26/24 03:37 Temperature 98.4 F Pulse Rate Pulse Rate [Right Pulse Oximeter] 89 Respiratory Rate 16 16 16 Blood Pressure Blood Pressure [Le ft Arm] 137/68 Blood Pressure [Ri ght Upper Arm] Pulse Oximetry 96 96 Oxygen Delivery Me thod Room Air Room Air Progress Note:A&P Assessment and plan (1) Bowel obstruction: Status: Acute Assessment and Plan: Tj, a 78 year old female is post op day 1 from an exploratory laparotomy due to a small bowel obstruction. Patient is seen laying in bed and in no acute distress. Denies having had a BM or passing gas. VS WNL. WBC slightly increasing from 8.72-->10.13. Neutrophils slightly increasing from 78.2-->79.2 as well. -Remain inpatient postoperatively until she is tolerating a diet and moving her bowels. -NPO. -IV pain medication PRN. -IV fluids. -Movement as tolerated. Documented by User: Dorene Bassett MD 01/26/24 12:25 Subjective Subjective Interval history: Tj is post op day 1 from exploratory laparotomy due to a small bowel ob struction. She states she is still having epigastric pain but it is mainly incisional. Rates it a 2 and it is aggravated by moving and coughing. The discomfort she had prior to surgery is gone. Today she is having more back pain, but this is pain that she was having prior to admission as well. She also has discomfort in her throat. She states that she had an upper respiratory illness recently which is contributing. Denies N/V, CP, SOB, fever, or chills. She has been able to get up to use the bathroom and denies urinary symptoms. She has been up ambulating in the hallway and up in a chair. Denies having had a bowel movement or passing gas. Exam Narrative: Exam Narrative: General: Sitting in bed. In no acute distress. Answering questions appropriately. Cardio: RRRR. S1 and S2 normal. Respiratory: Clear to auscultation. No wheezing or rhonchi. GI: Gauze and tape over surgical incision. No erythema or swelling surrounding dressing. BS present. Non-distended. TTP over epigastric region and incision site, appropriate for the postoperative state Labs/Imaging Labs Labs: Hemoglobin is 13.8. Electrolytes within normal limits Progress Note:A&P Assessment and plan (1) Bowel obstruction: Status: Acute Assessment and Plan: Tj, a 78 year old female is post op day 1 from an exploratory laparotomy due to a small bowel obstruction. She is doing well overall. Today we discussed that we will have to wait patiently for return of bowel function. I do think it is okay for her to have clear liquids however. The soreness she is having in her throat is likely secondary to intubation. She did also have an orogastric tube placed during the surgery which could be contributing. -will advance diet to clears well we are awaiting return of bowel function. She should go slow with this. -will try heating pad for her back pain. -start Lovenox tonight for DVT prophylaxis. -encourage IS and ambulation.
[2024-01-26] MEDS: ATORVASTATIN CALCIUM 40 MG TABLET PO (08:47)
[2024-01-26] MEDS: lisinopriL 10 MG TABLET PO (08:47)
[2024-01-26] MEDS: OMEPRAZOLE 20 MG CAPSULE DR 40 MG PO (08:47)
[2024-01-26] MEDS: ACETAMINOPHEN 325 MG TABLET 650 MG PO ×2 (09:59→20:16)
--- NOTE | 2024-01-26 12:58 | PM.IMPN1 ---
Progress Note: A&P Assessment and plan (1) Bowel obstruction: Problem details: POD#1 s/p exploratory laparotomy due to a small bowel obstruction Co manage postoperative care with surgery Advance diet to clears today Encourage incentive spirometry, ambulation, Lovenox for VTE PPX Status: Acute (2) 2nd degree AV block: Problem details: Occurred during upper endoscopy, probably vagal mediated. Consider sleep study as an outpatient Status: Acute (3) Hypertension: Problem details: Resume home medications, lisinopril and amlodipine as tolerated Status: Acute (4) Coronary artery disease: Problem details: Followed by [facility]: Abnormal stress test and CTA showing nonobstructive coronary disease 2023. Not currently symptomatic. Status: Acute Plan Continue to follow with General surgery Time Spent With Patient Total time spent: Total time spent caring for the patient today was 45 minutes. This includes time spent for the visit reviewing the chart, time spent during the visit, time spent after the visit and documentation and planning in coordination of care. Subjective Date Seen: 01/26/24 Interval history: Patient is seen sitting up in a chair this morning. Complains of mild abdominal discomfort, postoperatively, having just been repositioned. Denies nausea. Has been NPO. Not yet passing gas. Denies headache or dizziness. Denies chest pain or shortness of breath. Remains afebrile. Exam Narrative: Exam Narrative: PHYSICAL EXAM General: Pleasant, conversant, NAD HEENT: Normocephalic, atraumatic, sclera white, EOMI, oral mucosa moist Cardiovascular: RRR, S1S2. No significant pitting edema Pulmonary: CTA bilaterally without rhonchi, rales, expiratory wheezes. No dyspnea on room air Abdominal: Soft, nondistended, appropriate postoperative tenderness Neurological: Alert, answering questions appropriately, cranial nerves intact, no focal findings Extremities: No gross joint deformity or swelling. AROMI. Neurovascularly intact Skin: Warm, dry. Const: Vital Signs, click to edit/add: Vital Signs - 24 hr 01/25/24 14:10 01/25/24 14:15 01/25/24 14:20 Temperature 98.8 F Pulse Rate 63 61 57 L Pulse Rate [Right Pulse Oximeter] Respiratory Rate 25 H 25 H 14 Blood Pressure 132/59 L 140/70 H 128/59 L Blood Pressure [Le ft Arm] Pulse Oximetry 93 94 93 Oxygen Delivery Me thod Room Air Room Air Room Air 10/01/24 14:25 01/25/24 14:30 01/25/24 14:35 Temperature 99.4 F Pulse Rate 59 L 63 66 Pulse Rate [Right Pulse Oximeter] Respiratory Rate 14 14 16 Blood Pressure 132/54 L 119/60 129/63 Blood Pressure [Le ft Arm] Pulse Oximetry 93 94 94 [facility] Room [facility] Room Air 01/25/24 14:38 01/25/24 14:50 01/25/24 15:00 Temperature 99.4 F 97.9 F 97.9 F Pulse Rate 62 61 71 Pulse Rate [Right Pulse Oximeter] Respiratory Rate 16 18 18 Blood Pressure 127/78 120/68 130/66 Blood Pressure [Le ft Arm] Pulse Oximetry 95 94 94 [facility] Room Air Room Air 01/25/24 15:00 01/25/24 15:15 01/25/24 15:30 Temperature 98.3 F 98.2 F Pulse Rate 69 70 Pulse Rate [Right Pulse Oximeter] Respiratory Rate 18 18 18 Blood Pressure 142/71 H 138/66 Blood Pressure [Le ft Arm] Pulse Oximetry 93 92 94 Oxygen Delivery [facility] Room Air Room Air Room Air 01/25/24 15:45 01/25/24 16:30 01/25/24 17:00 Temperature 98.1 F 98.7 F 98.4 F Pulse Rate 75 78 82 Pulse Rate [Right Pulse Oximeter] Respiratory Rate 18 18 18 Blood Pressure 128/70 126/68 141/69 H Blood Pressure [Le ft Arm] Pulse Oximetry 93 91 82 L Oxygen Delivery [facility] Room Air Room Air Room Air 01/25/24 17:29 01/25/24 19:00 01/25/24 20:00 Temperature 98.7 F 98.7 F Pulse Rate 89 86 Pulse Rate [Right Pulse Oximeter] Respiratory Rate 18 18 18 Blood Pressure 139/72 112/62 Blood Pressure [Le ft Arm] Pulse Oximetry 94 89 95 [facility] Room Air Room Air 01/25/24 21:00 01/25/24 23:39 01/25/24 23:43 Temperature 98.1 F 97.9 F Pulse Rate 89 Pulse Rate [Right Pulse Oximeter] 78 Respiratory Rate 18 16 16 Blood Pressure 120/67 Blood Pressure [Le ft Arm] 122/51 L Pulse Oximetry 95 96 Oxygen Delivery Me thod Room Air Room Air 01/25/24 23:44 01/26/24 03:37 01/26/24 07:39 Temperature 98.4 F Pulse Rate Pulse Rate [Right Pulse Oximeter] 89 90 Respiratory Rate 16 16 22 Blood Pressure Blood Pressure [Le ft Arm] 137/68 Pulse Oximetry 96 96 Oxygen Delivery De thod Room Air Room Air 01/26/24 07:39 01/26/24 08:16 01/26/24 09:02 Temperature 97.8 F Pulse Rate 84 Pulse Rate [Right Pulse Oximeter] 90 Respiratory Rate 22 22 Blood Pressure Blood Pressure [Le ft Arm] 144/71 H Pulse Oximetry 91 91 Oxygen Delivery De thod Room Air Room Air 01/26/24 11:09 Temperature 98.7 F Pulse Rate Pulse Rate [Right Pulse Oximeter] 94 Respiratory Rate 18 Blood Pressure Blood Pressure [Le ft Arm] 157/88 H Pulse Oximetry 95 Oxygen Delivery De thod Room Air Labs Labs: Laboratory Results - last 24 hr 01/26/24 06:10 WBC 10.13 RBC 4.52 Hgb 13.8 Hct 42.3 MCV 94 MCH 31 MCHC 33 RDW Coeff of Marshall 12.9 Plt Count 242 Neut % (Auto) 79.2 H Lymph % (Auto) 10.3 L Rich % (Auto) 10.3 Eos % (Auto) 0.0 Baso % (Auto) 0.1 Neut # (Auto) 8.00 H Lymph # (Auto) 1.00 Rich # (Auto) 1.00 H Eos # (Auto) 0.00 Baso # (Auto) 0.01 Abs Immat Gran (auto) 0.01 Imm/Tot Granulo (auto) 0.1 Sodium 137 Potassium 4.2 Chloride 108 Carbon Dioxide 26 Anion Gap 3 L BUN 26 Creatinine 0.6 Estimated Creat Clear 35.55 Estimated GFR 92 Glucose 118 H Calcium 8.7
[2024-01-26] MEDS: HYDROCODONE-ACETAMIN 5-325 MG 1 TAB PO (16:38)
--- NOTE | 2024-01-26 19:05 | PC.NURSE ---
End of Shift: Patient pleasant and cooperative. Patient vitally stable, lungs clear, BS WNL, currently no IV. Patient rates pain at most 4/10, more so back pain today. Tylenol given once, and norco given once, active ice to abdomen, and aqua K used for back. Abdominal incision C/D/I. Patient tolerating clear liquids, and urinating well. Patient has been up in chair and walked today. Tele=NSR.
[2024-01-26] MEDS: AMLODIPINE 5 MG TABLET 2.5 MG PO (20:15)
[2024-01-26] MEDS: ENOXAPARIN 40 MG/0.4 ML INJ SUBCUT (20:16)
[2024-01-26] MEDS: CARBOXYMETHYLCELLULOSE (REFRESH PLUS) TEARS 1 DROP EYE-BOTH (20:16)
[2024-01-27] VITALS (8 sets, daily range): BP systolic 118–147; BP diastolic 61–76; PULSE 79–91; RESP 16–18; TEMP 36.6–37.1; O2SAT 92–97
[2024-01-27 08:15] LABS: Basophils Absolute Auto 0.02 K/uL (0.00-0.30); Basophils Percent Auto 0.3 % (0.0-3.0); Eosinophils Absolute Auto 0.02 K/uL (0.00-0.50); Eosinophils Percent Auto 0.3 % (0.0-7.0); Hematocrit 40.4 % (33.0-51.0); Immature Granulocytes Abs Auto 0.02 K/uL (0.00-0.30); Immature Granulocytes Pct Auto 0.3 %; Lymphocytes Percent Auto 13.1 % (20-44); Mean Corpuscular HGB Conc 32 gm/dL (32-36); Mean Corpuscular Hemoglobin 30 pg (26-34); Mean Corpuscular Volume 94 fL (80-100); Monocytes Percent Auto 9.9 % (0.0-11.0); Neutrophils Percent Auto 76.1 % (42.0-72.0); Platelet Count* 206 K/uL (140-440); RDW Coefficient of Variation % 12.9 % (11.5-15.5); White Blood Count* 7.26 K/uL (4.50-11.00)
[2024-01-27 08:19] LABS: Slide Review Reflex No
[2024-01-27] MEDS: lisinopriL 10 MG TABLET PO (08:27)
[2024-01-27] MEDS: ATORVASTATIN CALCIUM 40 MG TABLET PO (08:27)
[2024-01-27] MEDS: OMEPRAZOLE 20 MG CAPSULE DR 40 MG PO (08:27)
[2024-01-27] MEDS: HYDROCODONE-ACETAMIN 5-325 MG 1 TAB PO (08:27)
[2024-01-27 08:33] LABS: Albumin* 3.4 g/dL (3.3-5.0); Chloride* 107 mmol/L (96-114)
[2024-01-27 08:34] LABS: Potassium* 3.8 mmol/L (3.6-5.1); Sodium* 137 mmol/L (135-149)
[2024-01-27 08:36] LABS: Anion Gap 3 mEq/L (7-15); Aspartate Amino Transferase* 21 U/L (12-35); Bilirubin Total* 1.3 mg/dL (0.1-1.5); Carbon Dioxide* 27 mmol/L (20-32); Creatinine* 0.7 mg/dL (0.5-1.5); Est. Creatinine Clearance* 35.55; Estimated Glomerular Filt Rate 89 ml/min; Total Protein* 5.4 g/dL (6.0-8.3)
[2024-01-27 08:37] LABS: Alanine Aminotransferase* 10 U/L (4-35); Alkaline Phosphatase* 58 U/L (40-150); Blood Urea Nitrogen* 21 mg/dL (7-30); Calcium* 8.7 mg/dL (8.4-10.6); Glucose* 126 mg/dL (60-115)
--- NOTE | 2024-01-27 12:09 | PM.GSPN ---
Documented by User: Jacinda Mota 01/27/24 12:22 Subjective Subjective Time Seen by Provider: 12:00 Date Seen: 01/27/24 Patient reports: feels better, tolerating liquids well, flatus and no bowel movement Interval history: Tj, a 78 year old female, is post op day 2 from an exploratory laparotomy due to a small bowel obstruction. Reports some soreness around incisional site when getting in and out of bed. Denies abdominal pain, N/V, CP, SOB, or calf pain. Is tolerating clear liquid diet well. Passed gas twice this morning. Denies bowel movement. Is getting out of bed and walking. Exam Narrative: Exam Narrative: General: Laying in bed. In no acute distress. Answering questions appropriately. Cardio: RRRR. S1 and S2 normal. Respiratory: Clear to auscultation. GI: Incision from epigastric region to suprapubic region. No erythema or swelling surrounding incisional site. Slight bruising and dried blood. Steri strips intact. BS present. Non-distended. Soft. No TTP. Const: Vital Signs, click to edit/add: Vital Signs - 24 hr 01/26/24 15:00 01/26/24 15:00 01/26/24 15:00 Temperature 98.5 F Pulse Rate Pulse Rate [Right Pulse Oximeter] 90 90 Respiratory Rate 20 20 20 Blood Pressure [Le ft Arm] 142/68 H Pulse Oximetry 92 92 Oxygen Delivery Me thod Room Air Room Air 01/26/24 17:33 01/26/24 19:09 01/26/24 19:35 Temperature 98.5 F Pulse Rate 87 85 Pulse Rate [Right Pulse Oximeter] 92 Respiratory Rate 16 Blood Pressure [Le ft Arm] 123/66 Pulse Oximetry 96 Oxygen Delivery Vt thod Room Air 01/26/24 20:16 01/26/24 23:04 01/26/24 23:15 Temperature 98.5 F 98.5 F Pulse Rate Pulse Rate [Right Pulse Oximeter] 85 85 Respiratory Rate 16 16 Blood Pressure [Le ft Arm] 123/72 Pulse Oximetry 92 Oxygen Delivery Vt thod Room Air 01/26/24 23:15 01/27/24 02:19 01/27/24 07:00 Temperature 98.4 F Pulse Rate 79 Pulse Rate [Right Pulse Oximeter] 85 Respiratory Rate 16 16 Blood Pressure [Le ft Arm] 118/63 Pulse Oximetry 92 92 Oxygen Delivery Me thod Room Air Room Air 01/27/24 07:00 01/27/24 07:00 01/27/24 07:00 Temperature 97.9 F Pulse Rate Pulse Rate [Right Pulse Oximeter] 81 81 Respiratory Rate 16 16 16 Blood Pressure [Le ft Arm] 131/76 Pulse Oximetry 94 94 Oxygen Delivery Me thod Room Air Room Air 01/27/24 11:00 Temperature 97.9 F Pulse Rate Pulse Rate [Right Pulse Oximeter] 80 Respiratory Rate 16 Blood Pressure [Le ft Arm] 137/61 Pulse Oximetry 97 Oxygen Delivery Me thod Room Air Progress Note:A&P Assessment and plan (1) Bowel obstruction: Status: Acute Assessment and Plan: Tj is post op day 2 from an exploratory laparotomy due to a small bowel obstruction. She is doing well overall and tolerating her diet. Has began to pass gas this morning. No new complaints. -Advance to full liquid diet. Go slow with this. -Continue Lovenox for DVT prophylaxis. -Inspiratory spirometry and ambulation. Documented by User: Dorene Bassett MD 01/27/24 13:14 Subjective Subjective Interval history: Tj is feeling better today. Her abdominal pain is better as is her back pain. Denies N/V, CP, SOB, or calf pain. Is tolerating clear liquid diet well. Passed gas twice this morning. Denies bowel movement. Is getting out of bed and walking. Labs/Imaging Labs Labs: White blood cell count is within normal limits. Hemoglobin remains stable. Progress Note:A&P Assessment and plan (1) Bowel obstruction: Status: Acute Assessment and Plan: Tj is post op day 2 from an exploratory laparotomy and lysis of adhesions for small bowel obstruction. She is doing well overall and tolerating her diet. Has began to pass gas this morning. No new complaints. -Advance to full liquid diet. Have instructed her to go slow with this. -Continue Lovenox for DVT prophylaxis. -Inspiratory spirometry and ambulation.
--- NOTE | 2024-01-27 13:40 | PM.IMPN1 ---
Progress Note: A&P Assessment and plan (1) Bowel obstruction: Problem details: POD#2 s/p exploratory laparotomy due to a small bowel obstruction, Dr. Bassett (01/24) Co manage postoperative care with surgery Tolerating slow advancement in diet Encourage incentive spirometry, ambulation, Lovenox for VTE PPX Status: Acute (2) 2nd degree AV block: Problem details: Occurred during upper endoscopy, probably vagal mediated. Consider sleep study as an outpatient Status: Acute (3) Hypertension: Problem details: Resume home medications, lisinopril and amlodipine Status: Acute (4) Coronary artery disease: Problem details: Followed by [facility]: Abnormal stress test and CTA showing nonobstructive coronary disease 2023. Not currently symptomatic. Status: Acute Plan Postoperative management and discharge recommendations per General surgery Time Spent With Patient Total time spent: Total time spent caring for the patient today was 45 minutes. This includes time spent for the visit reviewing the chart, time spent during the visit, time spent after the visit and documentation and planning in coordination of care. Subjective Date Seen: 01/27/24 Interval history: Patient is seen sitting up in a chair this morning. Feeling quite well. Abdominal pain improving postoperatively. Ambulating frequently. Using IS. Tolerating clears without nausea or vomiting. Has now passed gas. Exam Narrative: Exam Narrative: PHYSICAL EXAM General: Pleasant, conversant, NAD Cardiovascular: RRR, S1S2. No significant pitting edema Pulmonary: CTA bilaterally without rhonchi, rales, expiratory wheezes. No dyspnea on room air Abdominal: Soft, nondistended, minimal postoperative tenderness Neurological: Alert, answering questions appropriately, cranial nerves intact, no focal findings Extremities: No gross joint deformity or swelling. AROMI. Neurovascularly intact Skin: Warm, dry. Const: Vital Signs, click to edit/add: Vital Signs - 24 hr 01/26/24 15:00 01/26/24 15:00 01/26/24 15:00 Temperature 98.5 F Pulse Rate Pulse Rate [Right Pulse Oximeter] 90 90 Respiratory Rate 20 20 20 Blood Pressure [Le ft Arm] 142/68 H Pulse Oximetry 92 92 Oxygen Delivery Me thod Room Air Room Air 01/26/24 17:33 01/26/24 19:09 01/26/24 19:35 Temperature 98.5 F Pulse Rate 87 85 Pulse Rate [Right Pulse Oximeter] 92 Respiratory Rate 16 Blood Pressure [Le ft Arm] 123/66 Pulse Oximetry 96 Oxygen Delivery Me thod Room Air 01/26/24 20:16 01/26/24 23:04 01/26/24 23:15 Temperature 98.5 F 98.5 F Pulse Rate Pulse Rate [Right Pulse Oximeter] 85 85 Respiratory Rate 16 16 Blood Pressure [Le ft Arm] 123/72 Pulse Oximetry 92 Oxygen Delivery Me thod Room Air 01/26/24 23:15 01/27/24 02:19 01/27/24 07:00 Temperature 98.4 F Pulse Rate 79 Pulse Rate [Right Pulse Oximeter] 85 Respiratory Rate 16 16 Blood Pressure [Le ft Arm] 118/63 Pulse Oximetry 92 92 Oxygen Delivery Az thod Room Air Room Air 01/27/24 07:00 01/27/24 07:00 01/27/24 07:00 Temperature 97.9 F Pulse Rate Pulse Rate [Right Pulse Oximeter] 81 81 Respiratory Rate 16 16 16 Blood Pressure [Le ft Arm] 131/76 Pulse Oximetry 94 94 Oxygen Delivery Az thod Room Air Room Air 01/27/24 11:00 Temperature 97.9 F Pulse Rate Pulse Rate [Right Pulse Oximeter] 80 Respiratory Rate 16 Blood Pressure [Le ft Arm] 137/61 Pulse Oximetry 97 Oxygen Delivery Me thod Room Air Labs Labs: Laboratory Results - last 24 hr 01/27/24 08:02 WBC 7.26 RBC 4.30 Hgb 13.0 Hct 40.4 MCV 94 MCH 30 MCHC 32 RDW Coeff of Marshall 12.9 Plt Count 206 Neut % (Auto) 76.1 H Lymph % (Auto) 13.1 L [place] % (Auto) 9.9 Eos % (Auto) 0.3 Baso % (Auto) 0.3 Neut # (Auto) 5.50 Lymph # (Auto) 1.00 [place] # (Auto) 0.70 Eos # (Auto) 0.02 Baso # (Auto) 0.02 Abs Immat Gran (auto) 0.02 Imm/Tot Granulo (auto) 0.3 Sodium 137 Potassium 3.8 Chloride 107 Carbon Dioxide 27 Anion Gap 3 L BUN 21 Creatinine 0.7 Estimated Creat Clear 35.55 Estimated GFR 89 Glucose 126 H Calcium 8.7 Total Bilirubin 1.3 AST 21 ALT 10 Alkaline Phosphatase 58 Total Protein 5.4 L Albumin 3.4
--- NOTE | 2024-01-27 18:31 | PC.NURSE ---
(Shift 15-19) Pt alert and oriented. Pt had complaints of pain ranging 2-3 in back. Pt has abdominal pain when transferring. Pt up walking independently in room. Pt is on a full liquid diet and tolerating well.?Pt had no complaints of N/V.
[2024-01-27] MEDS: AMLODIPINE 5 MG TABLET 2.5 MG PO (21:24)
[2024-01-27] MEDS: ENOXAPARIN 40 MG/0.4 ML INJ SUBCUT (21:25)
[2024-01-28 02:45] VITALS: BP 144/80; PULSE 84; RESP 16; TEMP 37; O2SAT 95
[2024-01-28 03:20] VITALS: PULSE 84
[2024-01-28 06:37] LABS: Hematocrit 38.1 % (33.0-51.0); Hemoglobin* 12.3 gm/dL (12.0-16.0); Mean Corpuscular HGB Conc 32 gm/dL (32-36); Mean Corpuscular Hemoglobin 30 pg (26-34); Mean Corpuscular Volume 94 fL (80-100); Platelet Count* 195 K/uL (140-440); Red Blood Count 4.05 m/uL (4.00-5.20); White Blood Count* 6.39 K/uL (4.50-11.00)
[2024-01-28 06:51] LABS: Slide Review Reflex No
[2024-01-28 06:53] LABS: Chloride* 106 mmol/L (96-114); Sodium* 139 mmol/L (135-149)
[2024-01-28 06:56] LABS: Anion Gap 5 mEq/L (7-15); Blood Urea Nitrogen* 15 mg/dL (7-30); Carbon Dioxide* 28 mmol/L (20-32); Creatinine* 0.6 mg/dL (0.5-1.5); Est. Creatinine Clearance* 35.55; Estimated Glomerular Filt Rate 92 ml/min
[2024-01-28 06:57] LABS: Calcium* 8.4 mg/dL (8.4-10.6); Glucose* 101 mg/dL (60-115)
--- NOTE | 2024-01-28 07:09 | PC.NURSE ---
Shift note ([id number]): Patient pleasant, alert and oriented. Ambulated independently in room and hallway. Bowel sounds active. No BM tonight. Denied any abdominal pain. Rated back pain 4/10. Pt reports tolerating back pain with Aqua-K pad applied. Ice applied to abdomen with pillow for bracing. Steri-strips intact with noted dried blood; no active bleeding.?
[2024-01-28 07:12] VITALS: PULSE 82
[2024-01-28 08:10] VITALS: BP 146/80; PULSE 81; RESP 16; TEMP 37.1; O2SAT 97
[2024-01-28] MEDS: OMEPRAZOLE 20 MG CAPSULE DR 40 MG PO (08:49)
[2024-01-28] MEDS: lisinopriL 10 MG TABLET PO (08:49)
[2024-01-28] MEDS: ATORVASTATIN CALCIUM 40 MG TABLET PO (08:49)
[2024-01-28 11:00] VITALS: BP 151/81; PULSE 89; RESP 16; TEMP 36.5; O2SAT 96
--- NOTE | 2024-01-28 11:13 | PM.DS1 ---
DS: Providers Provider Date Seen: 01/28/24 Date of admission: 01/26/24 08:55 Primary care physician: Yael Yen PA-C Admitting Clinician: Dorene Bassett MD Consults: 01/25/24 14:02 Consult to Physician [CONS] Routine Comment: Consulting Provider: Lenard Leiva Has provider been notified: Yes Attending Physician on discharge: Dorene Bassett MD Date of Discharge: 01/28/24 DS: Diagnosis Discharge Diagnosis (1) S/P laparotomy with lysis of adhesions: Status: Acute (2) Bowel obstruction: Status: Acute Problem details: resolved after exploratory laparotomy and lysis of adhesions (3) 2nd degree AV block: Status: Acute Problem details: Occurred during upper endoscopy, probably vagal mediated. Consider sleep study as an outpatient (4) Hypertension: Status: Acute Problem details: Resume home medications, lisinopril and amlodipine DS: Summary Hospital Course Hospital Course: The patient is a 78-year-old female who presented to the emergency department on January [address] showed bowel obstruction with concern for internal hernia. She was taken to the operating room where she was found to have an internal hernia resulting in volvulus. She underwent lysis of adhesions and was then admitted to the hospital for recovery. By postoperative day 3 she was tolerating a diet and had return of bowel function. Her pain was controlled with Tylenol. She was deemed safe for discharge home. Status at Discharge Functional status at discharge: independent ambulation Overall status at discharge: patient is back to baseline Time Spent with Patient Time attestation: Total time spent providing and/or coordinating discharge services: Exam Narrative: Exam Narrative: General: No acute distress CV: Regular rate and rhythm Respiratory: Clear to auscultation bilaterally Abdomen: Nondistended. Incision clean, dry and intact without erythema. Const: Vital Signs, click to edit/add: Vital Signs - 24 hr 01/27/24 15:20 01/27/24 15:20 01/27/24 15:25 Temperature 97.8 F Pulse Rate Pulse Rate [Right Pulse Oximeter] 83 83 Respiratory Rate 16 16 Blood Pressure [Le ft Arm] 126/69 Blood Pressure [Ri ght Arm] Pulse Oximetry 95 95 Oxygen Delivery Me thod Room Air Room Air 01/27/24 16:07 01/27/24 19:00 01/27/24 23:00 Temperature 98.3 F Pulse Rate 85 Pulse Rate [Right Pulse Oximeter] 91 Respiratory Rate 18 18 Blood Pressure [Le ft Arm] 141/73 H Blood Pressure [Ri ght Arm] Pulse Oximetry 95 93 Oxygen Delivery Me thod Room Air Room Air 01/27/24 23:00 01/28/24 02:45 01/28/24 03:20 Temperature 98.7 F 98.6 F Pulse Rate 84 Pulse Rate [Right Pulse Oximeter] 88 84 Respiratory Rate 18 16 Blood Pressure [Le ft Arm] Blood Pressure [Ri ght Arm] 147/76 H 144/80 H Pulse Oximetry 92 95 Oxygen Delivery Me thod Room Air Room Air 01/28/24 07:12 01/28/24 08:10 01/28/24 08:10 Temperature 98.8 F Pulse Rate 82 Pulse Rate [Right Pulse Oximeter] 81 81 Respiratory Rate 16 16 Blood Pressure [Le ft Arm] 146/80 H Blood Pressure [Ri ght Arm] Pulse Oximetry 97 Oxygen Delivery Me thod Room Air 01/28/24 08:10 Temperature Pulse Rate Pulse Rate [Right Pulse Oximeter] Respiratory Rate 16 Blood Pressure [Le ft Arm] Blood Pressure [Ri ght Arm] Pulse Oximetry 97 Oxygen Delivery Me thod Room Air DS: Data Data Completed and Pending Labs on day of discharge: Labs from last 24 hours 01/28/24 06:01 WBC 6.39 RBC 4.05 Hgb 12.3 Hct 38.1 MCV 94 MCH 30 MCHC 32 Plt Count 195 Sodium 139 Potassium 4.0 Chloride 106 Carbon Dioxide 28 Anion Gap 5 L BUN 15 Creatinine 0.6 Estimated Creat Clear 35.55 Estimated GFR 92 Glucose 101 Calcium 8.4 Discharge Plan Discharge Disposition: Home, Self-Care Date of Admission: 01/26/24 08:55 Attending Provider on Discharge: Dorene Bassett Consulting Providers: Lenard Leiva Primary Care Provider: Yael Yen Condition: Unchanged Anticipated Discharge Date/Time: 01/28/24 14:00 Discharge Medications: Continued Restasis MultiDose 0.05 % drops 1 drp ophthalmic (eye) Q12H lisinopril 20 mg tablet 20 mg PO DAILY Qty: 90 3RF meloxicam 7.5 mg tablet 7.5 mg PO QDAY Qty: 90 3RF omeprazole 40 mg capsule,delayed release(DR/EC) 40 mg PO QDAY Qty: 90 3RF omega 7-nwz-gni-fish oil [Fish Oil] 60-90-500 mg capsule 1 cap PO DAILY Ca carb-D3-mag vz-cpv-wgsj-Zn 600 mg-20 mcg- 40 mg-0.25 mg tablet,chewable 1 tab PO DAILY atorvastatin 40 mg tablet 40 mg PO DAILY amlodipine 2.5 mg tablet 2.5 mg PO HS alendronate 70 mg tablet 70 mg PO QWEEK 90 Days Qty: 13 3RF solifenacin 10 mg tablet 10 mg PO DAILY Qty: 90 3RF Discharge Orders: Discharge Order (Routine); Ordered 01/28/24 Ordered By: Dorene Bassett Patient Education: Surgical Site Infections (DC) Additional Instructions: Wound care: Your sutures are under the skin and will dissolve over time. Leave steri strips (white bandages) over incisions until they fall off (or remove after 7 days). OK to shower but avoid bathing, soaking or swimming for 2 weeks. Pat the incisions dry. No need to wash or scrub the area. Apply ice to the area as needed for swelling. It is also OK to use a heating pad if this provides more comfort to you. Pain control: Is Tylenol as directed on packaging for pain. I recommend that if you continue to have small, infrequent or firm bowel movements that you take MiraLax as directed on packaging. You can start by taking it every other day. Wait to start taking this if you have not had a bowel movement in 2 days. Follow-up Follow up with Dr. Bassett in 4 weeks in [place] Please call if you are experiencing severe pain, nausea, vomiting, difficulty urinating, fever or have not had bowel movement in 4 days. Activity Level: Activity as Tolerated and No strenuous activity Activity Detail: No lifting more than 20 lb for 4 weeks. Discharge Diet: Regular Follow Up Appointments: Dorene Bassett MD [Staff Physician] - Yael Yen PA-C [Primary Care Provider] - Forms: My[facility] Info Instructions Discharge Comments: Patient should eat lunch prior to discharge.
--- NOTE | 2024-01-28 13:31 | P.DS_ITS ---
DS: Providers Provider Date Seen: 01/28/24 Date of admission: 01/26/24 08:55 Primary care physician: Yael Yen PA-C Admitting Clinician: Dorene Bassett MD Consults: 01/25/24 14:02 Consult to Physician [CONS] Routine Comment: Consulting Provider: Lenard Leiva Has provider been notified: Yes Attending Physician on discharge: Dorene Bassett MD Date of Discharge: 01/28/24 DS: Diagnosis Discharge Diagnosis (1) Bowel obstruction: Status: Acute Problem details: resolved after exploratory laparotomy and lysis of adhesions (2) S/P laparotomy with lysis of adhesions: Status: Acute (3) Coronary artery disease: Status: Acute Problem details: Followed by [facility]: Abnormal stress test and CTA showing nonobstructive coronary disease 2023. Not currently symptomatic. (4) Hypertension: Status: Acute Problem details: Resume home medications, lisinopril and amlodipine (5) OAB (overactive bladder): Status: Acute (6) Abnormal stress test: Status: Acute Problem details: Nonobstructive coronary disease. Medically managed. Not currently symptomatic DS: Summary Hospital Course Hospital Course: The patient is a 78-year-old female who presented to the emergency department on January [address] showed bowel obstruction with concern for internal hernia. She was taken to the operating room where she was found to have an internal hernia resulting in volvulus. She underwent lysis of adhesions and was then admitted to the hospital for recovery. By postoperative day 3 she was tolerating a diet and had return of bowel function. Her pain was controlled with Tylenol. She was deemed safe for discharge home. Usual home medications were restarted during the hospital stay and at time of discharge form hospital. Time Spent with Patient Time attestation: Total time spent providing and/or coordinating discharge services: Exam Narrative: Exam Narrative: Patient examined in her hospital room. Appears comfortable. Alert and oriented x4. Lungs clear to auscultation. Heart tones with regular rhythm. Abdomen with active bowel sounds. Extremities without edema. Independent in transfer, station, and gait. Const: Vital Signs, click to edit/add: Vital Signs - 24 hr 01/27/24 15:20 01/27/24 15:20 01/27/24 15:25 Temperature 97.8 F Pulse Rate Pulse Rate [Right Pulse Oximeter] 83 83 Respiratory Rate 16 16 Blood Pressure [Le ft Arm] 126/69 Blood Pressure [Ri ght Arm] Pulse Oximetry 95 95 Oxygen Delivery Me thod Room Air Room Air 01/27/24 16:07 01/27/24 19:00 01/27/24 23:00 Temperature 98.3 F Pulse Rate 85 Pulse Rate [Right Pulse Oximeter] 91 Respiratory Rate 18 18 Blood Pressure [Le ft Arm] 141/73 H Blood Pressure [Ri ght Arm] Pulse Oximetry 95 93 Oxygen Delivery Pa thod Room Air Room Air 01/27/24 23:00 01/28/24 02:45 01/28/24 03:20 Temperature 98.7 F 98.6 F Pulse Rate 84 Pulse Rate [Right Pulse Oximeter] 88 84 Respiratory Rate 18 16 Blood Pressure [Le ft Arm] Blood Pressure [Ri ght Arm] 147/76 H 144/80 H Pulse Oximetry 92 95 Oxygen Delivery Pa thod Room Air Room Air 01/28/24 07:12 01/28/24 08:10 01/28/24 08:10 Temperature 98.8 F Pulse Rate 82 Pulse Rate [Right Pulse Oximeter] 81 81 Respiratory Rate 16 16 Blood Pressure [Le ft Arm] 146/80 H Blood Pressure [Ri ght Arm] Pulse Oximetry 97 Oxygen Delivery Pa thod Room Air 01/28/24 08:10 01/28/24 11:00 Temperature 97.7 F Pulse Rate Pulse Rate [Right Pulse Oximeter] 89 Respiratory Rate 16 16 Blood Pressure [Le ft Arm] 151/81 H Blood Pressure [Ri ght Arm] Pulse Oximetry 97 96 Oxygen Delivery Pa thod Room Air DS: Data Data Completed and Pending Labs on day of discharge: Labs from last 24 hours 01/28/24 06:01 WBC 6.39 RBC 4.05 Hgb 12.3 Hct 38.1 MCV 94 MCH 30 MCHC 32 Plt Count 195 Sodium 139 Potassium 4.0 Chloride 106 Carbon Dioxide 28 Anion Gap 5 L BUN 15 Creatinine 0.6 Estimated Creat Clear 35.55 Estimated GFR 92 Glucose [address] scan of abdomen and pelvis: Attestation: I have reviewed the pertinent imaging results. Radiologist's impression: FINDINGS: Lower chest: Mild bibasilar scarring or atelectasis. No pleural or pericardial effusions. Mild cardiomegaly. Liver: Incidental cyst and hemangioma in the right hepatic lobe, unchanged. Spleen: Unremarkable. Pancreas: Unremarkable. Gallbladder and bile ducts: Cholelithiasis. Gallbladder is otherwise unremarkable. No biliary ductal dilatation. Kidneys: Bilateral parapelvic cysts, unchanged. No urolithiasis, hydronephrosis or suspicious lesion. Adrenal glands: Unremarkable. GI tract: Multiple dilated fluid-filled small bowel loops measuring up to 3.8 cm with decompressed distal small bowel loops, consistent with obstruction. A transition point is present in the mid abdomen. There are additional dilated fluid-filled small bowel loops with mesenteric stranding in the pelvis that measure up to 2.8 cm. There is diffuse ill-defined mesenteric stranding associated with the dilated small bowel loops in the upper abdomen along with small volume ascites. No pneumatosis or free intraperitoneal gas at this time. No definite nonenhancing small bowel segment. Mesenteric vasculature as imaged is patent. Lymph nodes: No pathologic lymphadenopathy. Vascular structures: Atherosclerotic disease. No abdominal aortic aneurysm. Pelvic Organs: Bladder as imaged is unremarkable. Sigmoid diverticulosis without evidence of acute diverticulitis. Bones: No acute or suspicious osseous abnormality. Degenerative changes of the spine and pelvis. IMPRESSION: 1. Small-bowel obstruction with findings concerning for multifocal transition point and/or closed loop obstruction. Diffuse mesenteric stranding and small volume ascites may reflect ischemic change. No pneumatosis or free intraperitoneal gas. Mesenteric vasculature as imaged is patent. Surgical consultation regarding further management recommended. 2. Cholelithiasis. 3. Sigmoid diverticulosis without evidence of acute diverticulitis. Discharge Plan Discharge Disposition: Home, Self-Care Date of Admission: 01/26/24 08:55 Attending Provider on Discharge: Dorene Bassett Consulting Providers: Lenard Leiva Primary Care Provider: Yael Yen Condition: Unchanged Anticipated Discharge Date/Time: 01/28/24 14:00 Discharge Medications: Continued Restasis MultiDose 0.05 % drops 1 drp ophthalmic (eye) Q12H lisinopril 20 mg tablet 20 mg PO DAILY Qty: 90 3RF meloxicam 7.5 mg tablet 7.5 mg PO QDAY Qty: 90 3RF omeprazole 40 mg capsule,delayed release(DR/EC) 40 mg PO QDAY Qty: 90 3RF omega 6-eaa-jot-fish oil [Fish Oil] 60-90-500 mg capsule 1 cap PO DAILY Ca carb-D3-mag pi-qyo-xlqi-Zn 600 mg-20 mcg- 40 mg-0.25 mg tablet,chewable 1 tab PO DAILY atorvastatin 40 mg tablet 40 mg PO DAILY amlodipine 2.5 mg tablet 2.5 mg PO HS alendronate 70 mg tablet 70 mg PO QWEEK 90 Days Qty: 13 3RF solifenacin 10 mg tablet 10 mg PO DAILY Qty: 90 3RF Discharge Orders: Discharge Order (Routine); Ordered 01/28/24 Ordered By: Dorene Bassett Patient Education: Surgical Site Infections (DC), Exploratory Laparotomy (DC) Additional Instructions: Wound care: Your sutures are under the skin and will dissolve over time. Leave steri strips (white bandages) over incisions until they fall off (or remove after 7 days). OK to shower but avoid bathing, soaking or swimming for 2 weeks. Pat the incisions dry. No need to wash or scrub the area. Apply ice to the area as needed for swelling. It is also OK to use a heating pad if this provides more comfort to you. Pain control: Is Tylenol as directed on packaging for pain. I recommend that if you continue to have small, infrequent or firm bowel movements that you take MiraLax as directed on packaging. You can start by taking it every other day. Wait to start taking this if you have not had a bowel movement in 2 days. Follow-up Follow up with Dr. Bassett in 4 weeks in [place] Please call if you are experiencing severe pain, nausea, vomiting, difficulty urinating, fever or have not had bowel movement in 4 days. Activity Level: Activity as Tolerated and No strenuous activity Activity Detail: No lifting more than 20 lb for 4 weeks. Discharge Diet: Regular Follow Up Appointments: Dorene Bassett MD [Staff Physician] - 02/23/24 9:30 am Yael Yen PA-C [Primary Care Provider] - Forms: [email or web address] Info Instructions Discharge Comments: Patient should eat lunch prior to discharge.
--- NOTE | 2024-01-28 14:15 | PC.NURSE ---
End of Shift: Patient pleasant and cooperative. Patient vitally stable, lungs clear, BS WNL, IV removed, catheter intact. Patient independent in room and rates abdominal pain 1/10, no pain meds given. Abdominal incision C/D/I, with old dried blood on steri strips. Patient had cottage cheese and some mashed potatoes for lunch. Patient urinating and had 1 hard BM. Patient ambulating the halls. Discharge form signed, education complete. Patient awaiting ride to discharge.
--- NOTE | 2024-01-28 16:39 | PC.NURSE ---
Nursing care note Pt handed off at 1500, nurse reported DC work done and IV removed. Pt just waiting for ride. Box Sealing Machine Operator went to the room at 1600 and pt and personal belongings gone. Did not check out at medical front desk specialist
== END 2024-01-28 15:30 | disposition home or self-care (01) | DRG 327 ==
LOC: ED 12:06 → SS 12:40 → MEDSURG 16:49
PROVIDERS: Physician Assistant; Admitting Provider Surgery; Emergency Provider Emergency Medicine Emergency Medical Services; PCP Physician Assistant Medical; Visit Provider Surgery
PROC: 0DN80ZZ Release Small Intestine, Open Approach (ICD-10-PCS; CPT 49000; principal; 2024-01-25 12:00)
DX: K56.50 Intestinal adhesions [bands], unspecified as to partial versus complete obstruction (principal); K45.0 Other specified abdominal hernia with obstruction, without gangrene; K56.2 Volvulus; G89.18 Other acute postprocedural pain; R11.10 Vomiting, unspecified; N32.81 Overactive bladder; I44.1 Atrioventricular block, second degree; R94.39 Abnormal result of other cardiovascular function study; I10 Essential (primary) hypertension; I25.10 Atherosclerotic heart disease of native coronary artery without angina pectoris; K21.9 Gastro-esophageal reflux disease without esophagitis
CPT/HCPCS: 00790; 00840; 36415; 64488; 74177; 76942; 80048; 80053; 80076; 83690; 84484; 85025; 85027; 93005; 99100; 99140; 99285; A9270; C9290; J0330; J0665; J1100; J1171; J1335; J1650; J2371; J2405; J2704; J2710; J3010; J3475; J3480; J3490; J7030; J7120; Q9967

== ENCOUNTER 2024-02-02 14:00 | Outpatient (CLI) | payer MEDICARE, SELFPAY ==
--- OUTSIDE RECORDS SUMMARY | 2024-02-02 14:05 | XMS_ITS | Clinical Summary ---
Author Organization [place] Address [address] [place], [place] [address] [address] Care Team Providers Care Director Of Medical Review Name Role Phone Bg Calderon MD Primary Care Provider [phone] Allergies Active Allergy Reactions Criticality Noted Date Comments Penicillins Rash 11/26/2006 Other reaction(s): Other - Describe In Comment Field Hands and feet get red and swollen. Juan Banda LATHE MACHINE OPERATOR 2:40 PM 03/18/2012 Medications Medication Sig [...] 2 times daily Reported on 06/29/2016 Active [place]-3 Fatty Acids (FISH OIL) 1200 MG CAPS [...] MULTIDOSE 0.05 % ophthalmic emulsion 07/25/2020 Active [place]-3 Fatty Acids (FISH OIL) 1200 MG capsule [...] AM CDT Pulse 57 06/29/2016 7:10 PM BALL ROLLING MACHINE OPERATOR Temperature 36.6 ??C (97.8 ??F) 06/29/2016 7:10 PM CS T Respiratory Rate 18 10/20/2013 9:05 AM CDT Oxygen Saturation 97% 06/29/2016 7:10 PM BALL ROLLING MACHINE OPERATOR Inhaled Oxygen Concentration - - [...] BILATERAL W/ JEREMIAS Routine 04/29/2016 11:05 AM BALL ROLLING MACHINE OPERATOR Visit for screening mammogram DX BONE DENSITY Routine 04/29/2016 10:37 AM BALL ROLLING MACHINE OPERATOR Asymptomatic postmenopausal state COLONOSCOPY Routine 02/20/2013 10:25 AM CDT LIPID PROFILE Routine 09/28/2011 7:32 AM CDT Pure hypercholesterolemia BASIC METABOLIC PANEL Routine 02/20/2008 7:06 AM CDT from Last 3 Months or Most Recently Relevant to Health Maintenance Results * MA Screen Bilateral w/Jeremias (04/29/2016 11:05 AM BALL ROLLING MACHINE OPERATOR) Anatomical Region Laterality Modality Breast Bilateral Mammography Impressions 04/29/2016 11:49 AM BALL ROLLING MACHINE OPERATOR IMPRESSION: BI-RADS CATEGORY: 1 - ??NEGATIVE. RECOMMENDED FOLLOW-UP: Annual Mammography. The patient will be notified of the results. TRISTON WEI Narrative 04/29/2016 11:49 AM BALL ROLLING MACHINE OPERATOR Examination: Bilateral digital screening mammography [...] AHMET * DX Hip/Pelvis/Spine (04/29/2016 10:37 AM BALL ROLLING MACHINE OPERATOR) Anatomical Region Laterality Modality Dexa Computed Radiogr aphy Narrative 04/30/2016 11:25 AM BALL ROLLING MACHINE OPERATOR DX Hip/Pelvis/Spine Order #: [id number] Study Notes? Ericka Jasmine on 04/29/2016 10:45 AM ?? BONE DENSITOMETRY [facility] [address] [address] 04/29/2016 PATIENT: Tj Stoll CHART: [id number] ?? :?? 1945 AGE:?? 71 year old SEX:?? female REFERRING PROVIDER:?? Dr Diallo PROCEDURE:?? Bone density scanning was performed using DXA technology of the lumbar spine and hip.?? Scanning was performed on a [employer] scanner.?? Reporting is completed in the form [...] to another DXA performed on the same [employer]?? machine on 06/15/2011. IMPRESSION Z score is within the expected range for age Z score is below the expected range for age David Diallo MD ?? Discussed here Alvaro Diallo MD IMG DEXA ORDERABLES * COLONOSCOPY (02/20/2013 10:25 AM CDT) Pathologist [facility] COLONOSCOPY [facility] Endoscopy Department Patient Name: Tj Stoll [...] Performing Lab Site ID: [id number] Lab Name: [facility] Address: [address] [place] [id number] Internal Grinding Machine Operator: Matt Weinberg M.D. Hakeem Viera MD LAB - BLOOD ORDERABL ES Performing Organization Address [facility] Co de Phone Number ANGELIQUE DURBIN [address] [place] [phone] * (ABNORMAL) Basic metabolic panel (02/20/2008 7:06 [...] Relevant to Health Maintenance Care Teams Director Of Medical Review Relationship Specialty Start Date End Date Bg Calderon MD PCP - General 04/29/16
--- OUTSIDE RECORDS SUMMARY | 2024-02-02 14:05 | XMS_ITS | Encounter Summary ---
Author Organization [place] Address [address] [place] [address]. [place] [address] Care Team Providers Care Education Reviewer Name Role Phone Bg Calderon MD Primary Care Provider [phone] Ezra Hess DPM Unavailable [phone] Mimi Hernandez DPM, Podiatry /Foot and Ankle Surgery Unavailable Reason for Visit * Reason Comments Refill Request Encounter Details Date Type Department Care Team (Late st Contact Info) Description 07/13/2011 [facility] [address] [place] [address]. [address] [place] [address] Hakeem Viera MD [address] [place] [id number] Refill Request Social History Tobacco Use Types [...] hypertension documented in this encounter Care Teams Education Reviewer Relationship Specialty Start Date End Date Bg Calderon MD PCP - General 04/29/16 Ezra Hess DPM [id number] [facility] [address] [place] [address] Assigned Musculoskeletal Provider 09/22/20 11/23/20 Mimi Hernandez, ALE, Podiatry/Foot and Ankle Surgery [id number] [facility] [address] [place] [address] Assigned Musculoskeletal Provider 11/24/20 05/22/22 documented as of this encounter
--- OUTSIDE RECORDS SUMMARY | 2024-02-02 14:05 | XMS_ITS | Clinical Summary ---
Author Organization [employer] [facility] Address [place], [place] [address] Care Team Providers Care Merchandise For Resale Purchasing Agent Name Role Phone YenAbhishek olvera Sen MARLEYC Primary Care Provider [phone] Bg Calderon MD Unavailable [phone] Alvaro Diallo MD Unavailable [phone] Allergies Active Allergy Reactions Criticality Noted Date Comments Penicillins Other - Describe In Comment Field 03/18/2012 Hands and feet get red and swollen. Juan Blunt ORDER CALLER 2:40 PM 03/18/2012 Medications Medication Sig Dispensed [...] or H.Pylori (Dr. Angel - [facility]) 10/22/16 - Hgb to 11.6 and Ferritin/STFR [...] Right Hip OA - Cortisone injection 05/08/14 ([facility]) Tinnitus 05/25/2014 Hiatal hernia with Associated GERD 05/25/2014 Overview (05/25/2014): Does well with sleeping sitting up Plantar fasciitis 05/25/2014 Overview (10/21/2016): No problem if not going barefoot CAD (coronary artery disease) by imaging 015 Overview (05/25/2014): CT Coronary Artery 09/2013 ([facility]): Calcium score 50-75%tile. Mild stenosis <25% in LAD and circumflex. Venous insufficiency 05/25/2014 HTN (hypertension) Hypercholesteremia Overview (07/27/2014): Previous Simvastatin 20mg, changed to Atorvastatin 40mg 07/27/[address] Coronary Calcium Score Resolved Problems Problem Noted Date Diagnosed Date Resolved Date Colon cancer screening in 14 with 5 year fu, 4 05/25/2014 Encounters Date Type Department Care Team Description 01/20/2024 Telephone [facility] [address] [place] [address] Cornel Harding MD Results 12/23/2023 9:30 AM CDT Office Visit [facility] [address] [place] [address] Cornel Harding MD 12/23/[address] [facility] [address] [place] [address] Cornel Harding MD 1 scan: (1-Ord) ZIO REPORT 11/25/2023 11:00 AM CDT Ancillary Procedure [facility] [place] [address] [facility] [address] [place] [address] 11/25/2023 10:40 AM CDT Orders Only [facility] [address] [facility] [address] [place] [address] Lab 11/25/2023 Travel 11/18/2023 Nurse/Clinic Staff Only [facility] [address] [place] [address] Rupert Marcial MD 11/18/2023 Telephone [facility] [address] [place] [address] Rupert Marcial MD Results (Stress echo) 11/09/2023 1:00 PM CDT Ancillary Procedure [facility] [address] [place] [address] 11/09/2023 Travel from Last 3 Months Immunizations [...] DT Respiratory Rate 14 03/06/2013 11:03 AM CINDER DUMP CRANE OPERATOR Oxygen Saturation 99% 11/16/2013 8:24 AM CDT [...] Tdap Completed 01/31/2009 (Comp leted outside of [facility]), 01/31/2009 Pneumococcal series for age 65+ Completed 5, 03/18/2012 DEXA/DXA scan for age 65+ Completed 2016 (Completed outside of [facility]), 09/15/2013 Procedures Procedure Name Priority Date/Time Associated Diagnosis Comments EXTENDED HOLTER Routine 01/03/[address] CARDIAC CORONARY ARTERIES DUAL READ Routine 11/25/2023 12:12 PM CDT Coronary artery disease involving [place] coronary artery of [place] heart without angina pectoris HTN (hypertension) Chest [...] (Electronic Signature) Narrative 11/28/2023 9:41 PM CDT ?[facility] at [facility] ? Cardiac CT Report ??MRN: ?[id number] ?Name: ? TJ STOLL ?: ?Scan Date: ?Accession Number: ?[id number] ?Status: ?Final ? Electronically signed by Sergio [...] TYPE: ??Calcium score, Coronary CT Angiography SCANNER STRATEGIC ANALYST: ??SIEMENS SCANNER MODEL: ??[employer] DOSE REDUCTION ALGORITHM: ??Prospective/[id number] PHASE UNITS: ??% START PHASE: ??65 % [...] ??RUPERT MARCIAL ?TECHNOLOGIST: ??Alana Loredo Patient Account ?[id number] ICD10 Codes ?I25.10, I10, R07.9 Report generated [...] conjunction with the services provided by the [facility] ([facility]). CLINICAL HISTORY: ??Cardiac CT over-read. ? FINDINGS: Aorta: Normal caliber with no signs of dissection. Pulmonary arteries:No filling defects, bolus timing may somewhat limit evaluation. Mediastinum:No suspicious adenopathy. Lungs and pleural structures: Clear, no effusions Rupert Marcial MD CT * (ABNORMAL) CREATININE,ISTAT (11/25/2023 10:46 AM CDT) CREATININE, POCT 0.80 0.57 - 1.11 mg/dL 11/25/2023 10:51 AM CDT [facility] Comment:Caution: Patients ta vasyl Hydroxyurea have falsely increased iStat Creatinine results. Verify creatinine results ordering a Creatinine (75958.2) eGFR 76(L) >90 mL/min/1.7 3m2 11/25/2023 10:51 AM CDT [facility] Comment:As of 2021, eG FR is calculated by the CKD-EPI creatinine equation without race adjustment. eGFR can be influenced by muscle mass, exercise, and diet. The reported eGFR is an estimation only and is only applicable if the renal function is stable. Blood BLOOD SPECIMEN / Unknown 11/25/2023 10:46 AM CDT 11/25/2023 10:51 AM CDT Rupert Marcial MD CHEMISTRY [facility] [address] [id number], * ECHO STRESS EXERCISE WO CONTRAST (11/09/2023 1:35 PM CDT) EJECTION FRACTION 55 - 60% Anatomical Region Laterality Modality Ultrasound 11/09/2023 1:09 PM CDT Narrative 11/09/2023 2:05 PM CDT STRESS ECHOCARDIOGRAM TJ STOLL ?Accession#: ?? [id number] : ?1945 78 years Study Date: ?? 11/09/2023 1:09:11 PM Gender: F ? BP: ? 163/82 mmHg Height: 155.00 cm ? BSA: ?1.81 m? ? ? Weight: 82.00 kg ?Tech: ? MTS ?Referring MD: ABHISHEK YEN Site: ? [facility] Reading Location: [facility] Patient Location: Outpatient. [...] % of Max ? 102% Double Product [id number] Echo Findings:This is a positive stress echo [...] [place] [address]. Maximum stress test with 102.5% of age [...] . This study was interpreted by an [facility] accredited facility. ??Final ?? Procedure Note Aleida Molina MD - 11/09/2023 STRESS ECHOCARDIOGRAM TJ STOLL : 1945 78 years Study Date: 11/09/2023 1:09:11 PM Gender: F BP: 163/82 mmHg Height: 155.00 cm BSA: 1.81 m? ? ? Weight: 82.00 kg Tech: [facility] Referring MD: ABHISHEK YEN Site: [facility] Reading Location: [facility] Patient Location: Outpatient. Procedure: Stress [...] 142 % of Max 102% Double Product 05405 Echo Findings:This is a positive stress echo [...] 0 sec to stage I according to [facility] stress echo protocol. Test terminated due to fatigue. 4.6 METS wereachieved. The patient achieved a heart rate of 146 bpm which is 102.5% ofmaximum predicted heart rate. Maximum systolic blood pressure was 173 mmHg[place] [address]. Maximum stress test with 102.5% ofage predicted [...] . This study was interpreted by an [facility] accredited facility. Final Abhishek Yen [...] and hip. Scanning was performed on a XING Scanner. Reporting is completed in the form [...] and hip. Scanning was performed on a XING Scanner. Reportingis completed in the form of [...] Documents on File Type Date Recorded Patient Hat Parts Cutter Machine Expl anation Healthcare Directive 02/15/2012 2:57 PM Power of Telephonic Case Manager 02/15/2012 2:54 PM Care Teams Merchandise For Resale Purchasing Agent Relationship Specialty Start Date End Date Abhishek Yen PA-C [address] [place] [address] PCP - General Physician Tissue Specialist 09/23/23 Bg Calderon MD [address] [address] Internal Medicine 09/23/23 Alvaro Diallo MD [address] [address] COACH OPERATOR Obstetrics and Gynecology 05/25/14
--- OUTSIDE RECORDS SUMMARY | 2024-02-02 14:05 | XMS_ITS | Encounter Summary ---
Author Organization [place] Address [address] [place] [address]. [place] [address] Care Team Providers Care Corporate Responsibility Officer Name Role Phone Bg Calderon MD Primary Care Provider [phone] Ezra Hess DPM Unavailable [phone] Mimi Hernandez DPM, Podiatry /Foot and Ankle Surgery Unavailable Reason for Visit * Reason Comments Refill Request Encounter Details Date Type Department Care Team (Late st Contact Info) Description 10/12/2011 Refill Consultants-Internal Medicine [address] [place] [address]. [address] [place] [address] Hakeem Viera MD [address] [place] [address] Refill Request Social History Tobacco Use Types [...] hypercholesterolemia documented in this encounter Care Teams Corporate Responsibility Officer Relationship Specialty Start Date End Date Bg Calderon MD PCP - General 04/29/16 Ezra Hess DPM [address] [facility] [address] [place] [address] Assigned Musculoskeletal Provider 09/22/20 11/23/20 Mimi Hernandez DPM, Podiatry/Foot and Ankle Surgery [address] [facility] [address] [place], [place] [address] Assigned Musculoskeletal Provider 11/24/20 05/22/22 documented as of this encounter
--- OUTSIDE RECORDS SUMMARY | 2024-02-02 14:05 | XMS_ITS | Referral Summary ---
Author Organization [place] Address [address] [place], [place] [address] [address] Care Team Providers Care Core Shaper Sides Name Role Phone Bg Calderon MD Primary Care Provider [phone] Allergies Active Allergy Reactions Criticality Noted Date Comments Penicillins Rash 11/26/2006 Other reaction(s): Other - Describe In Comment Field Hands and feet get red and swollen. Juan Banda HOUSEHOLD WORKER 2:40 PM 03/18/2012 Medications Medication Sig [...] 2 times daily Reported on 06/29/2016 Active [place]-3 Fatty Acids (FISH OIL) 1200 MG CAPS [...] MULTIDOSE 0.05 % ophthalmic emulsion 07/25/2020 Active [place]-3 Fatty Acids (FISH OIL) 1200 MG capsule [...] AM CDT Pulse 57 06/29/2016 7:10 PM FIBREGLASS GUN HAND Temperature 36.6 ??C (97.8 ??F) 06/29/2016 7:10 PM CS T Respiratory Rate 18 10/20/2013 9:05 AM CDT Oxygen Saturation 97% 06/29/2016 7:10 PM FIBREGLASS GUN HAND Inhaled Oxygen Concentration - - Weight 82.3 kg (181 lb 6.4 oz) 11/15/2020 1:25 P M CDT Height 156.2 cm (5' 1.5) 11/15/2020 1:25 PM CDT Body Mass Index 33.72 11/15/2020 1:25 PM CDT Plan of Treatment Not on file Procedures Procedure Name Priority Date/Time Associated Diagnosis Comments MA SCREENING BILATERAL W/ JEREMIAS Routine 04/29/2016 11:05 AM FIBREGLASS GUN HAND Visit for screening mammogram DX BONE DENSITY Routine 04/29/2016 10:37 AM FIBREGLASS GUN HAND Asymptomatic postmenopausal state COLONOSCOPY Routine 02/20/2013 10:25 AM CDT LIPID PROFILE Routine 09/28/2011 7:32 AM CDT Pure hypercholesterolemia BASIC METABOLIC PANEL Routine 02/20/2008 7:06 AM CDT from Last 3 Months or Most Recently Relevant to Health Maintenance Results * MA Screen Bilateral w/Jeremias (04/29/2016 11:05 AM FIBREGLASS GUN HAND) Anatomical Region Laterality Modality Breast Bilateral Mammography Impressions 04/29/2016 11:49 AM FIBREGLASS GUN HAND IMPRESSION: BI-RADS CATEGORY: 1 - ??NEGATIVE. RECOMMENDED FOLLOW-UP: Annual Mammography. The patient will be notified of the results. TRISTON WEI Narrative 04/29/2016 11:49 AM FIBREGLASS GUN HAND Examination: Bilateral digital screening mammography with computer [...] WEI Alvaro Diallo MD IMG MAMMOGRAPHY RUSSELL ELO * DX Hip/Pelvis/Spine (04/29/2016 10:37 AM FIBREGLASS GUN HAND) Anatomical Region Laterality Modality Dexa Computed Radiogr aphy Narrative 04/30/2016 11:25 AM FIBREGLASS GUN HAND DX Hip/Pelvis/Spine Order #: [id number] Study Notes? Ericka Jasmine on 04/29/2016 10:45 AM ?? BONE DENSITOMETRY [facility] RECRUITMENT ASSISTANT & SURG[facility]- [place] [address] [place] [address] 04/29/2016 PATIENT: Tj Stoll CHART: [id number] ?? :?? 1945 AGE:?? 71 year old SEX:?? female REFERRING PROVIDER:?? Dr Diallo PROCEDURE:?? Bone density scanning was performed using DXA technology of the lumbar spine and hip.?? Scanning was performed on a CitalDoc scanner.?? Reporting is completed in the form [...] to another DXA performed on the same CitalDoc?? machine on 06/15/2011. IMPRESSION Z score is within the expected range for age Z score is below the expected range for age David Diallo MD ?? Discussed here Alvaro Diallo MD IMG DEXA ORDERABLES * COLONOSCOPY (02/20/2013 10:25 AM CDT) COLONOSCOPY [facility] Endoscopy Department Patient Name: Tj [...] Performing Lab Site ID: CB Lab Name: [facility] Address: [address] [place] [id number] Mammal Keeper: Matt Weinberg M.D. Hakeem Viera MD LAB - BLOOD ORDERABL ES Performing Organization Address [facility]/ZIP Co de Phone Number ANGELIQUE DURBIN [address] [place] [phone] * (ABNORMAL) Basic metabolic panel (02/20/2008 7:06 [...] Recently Relevant to Health Maintenance Care Teams Core Shaper Sides Relationship Specialty Start Date End Date Bg Calderon MD PCP - General 04/29/16
== END 2024-02-02 14:01 | disposition home or self-care (01) ==
PROVIDERS: PCP Physician Assistant Medical; Visit Provider Registered Nurse
DX: R19.7 Diarrhea, unspecified (principal); I10 Essential (primary) hypertension
CPT/HCPCS: 80048

== ENCOUNTER 2024-02-03 08:27 | Outpatient (CLI) | payer MEDICARE, SELFPAY ==
--- OUTSIDE RECORDS SUMMARY | 2024-02-04 09:33 | XMS_ITS | Clinical Summary ---
Author Organization [place] Address [address] [place], [place] [address] [address] Care Team Providers Care Hobbing Press Operator Name Role Phone Bg Calderon MD Primary Care Provider [phone] Allergies Active Allergy Reactions Criticality Noted Date Comments Penicillins Rash 11/26/2006 Other reaction(s): Other - Describe In Comment Field Hands and feet get red and swollen. Juan Banda ACT TUTOR 2:40 PM 03/18/2012 Medications Medication Sig Dispensed [...] 2 times daily Reported on 06/29/2016 Active [place]-3 Fatty Acids (FISH OIL) 1200 MG CAPS [...] MULTIDOSE 0.05 % ophthalmic emulsion 07/25/2020 Active [place]-3 Fatty Acids (FISH OIL) 1200 MG capsule [...] AM CDT Pulse 57 06/29/2016 7:10 PM FORMULA ROOM WORKER Temperature 36.6 ??C (97.8 ??F) 06/29/2016 7:10 PM CS T Respiratory Rate 18 10/20/2013 9:05 AM CDT Oxygen Saturation 97% 06/29/2016 7:10 PM FORMULA ROOM WORKER Inhaled Oxygen Concentration - - Weight 82.3 [...] BILATERAL W/ JEREMIAS Routine 04/29/2016 11:05 AM FORMULA ROOM WORKER Visit for screening mammogram DX BONE DENSITY Routine 04/29/2016 10:37 AM FORMULA ROOM WORKER Asymptomatic postmenopausal state COLONOSCOPY Routine 02/20/2013 10:25 AM CDT LIPID PROFILE Routine 09/28/2011 7:32 AM CDT Pure hypercholesterolemia BASIC METABOLIC PANEL Routine 02/20/2008 7:06 AM CDT from Last 3 Months or Most Recently Relevant to Health Maintenance Results * MA Screen Bilateral w/Jeremias (04/29/2016 11:05 AM FORMULA ROOM WORKER) Anatomical Region Laterality Modality Breast Bilateral Mammography Impressions 04/29/2016 11:49 AM FORMULA ROOM WORKER IMPRESSION: BI-RADS CATEGORY: 1 - ??NEGATIVE. RECOMMENDED FOLLOW-UP: Annual Mammography. The patient will be notified of the results. TRISTON WEI Narrative 04/29/2016 11:49 AM FORMULA ROOM WORKER Examination: Bilateral digital screening mammography with computer [...] AHMET * DX Hip/Pelvis/Spine (04/29/2016 10:37 AM FORMULA ROOM WORKER) Anatomical Region Laterality Modality Dexa Computed Radiogr aphy Narrative 04/30/2016 11:25 AM FORMULA ROOM WORKER DX Hip/Pelvis/Spine Order #: [id number] Study Notes? Ericka Jasmine on 04/29/2016 10:45 AM ?? BONE DENSITOMETRY [facility] TILE FITTER & SURGERY- [place] [address] [place] [address] 04/29/2016 PATIENT: Tj Stoll CHART: [id number] ?? :?? 1945 AGE:?? 71 year old SEX:?? female REFERRING PROVIDER:?? Dr Diallo PROCEDURE:?? Bone density scanning was performed using DXA technology of the lumbar spine and hip.?? Scanning was performed on a [employer] scanner.?? Reporting is completed in the form [...] to another DXA performed on the same [employer]?? machine on 06/15/2011. IMPRESSION Z score is within the expected range for age Z score is below the expected range for age David Diallo MD ?? Discussed here Alvaro Diallo MD IMG DEXA ORDERABLES * COLONOSCOPY (02/20/2013 10:25 AM CDT) Pathologist [facility] COLONOSCOPY [facility] Endoscopy Department Patient Name: Tj [...] Performing Lab Site ID: CB Lab Name: [facility] Address: [address] [place] [id number] Manufacturers Service Representative: Matt Weinberg M.D. Hakeem Viera MD LAB - BLOOD ORDERABL ES Performing Organization Address City/[facility] Co de Phone Number ANGELIQUE DURBIN [address] [place] [phone] * (ABNORMAL) Basic metabolic panel (02/20/2008 7:06 [...] Recently Relevant to Health Maintenance Care Teams Hobbing Press Operator Relationship Specialty Start Date End Date Bg Calderon MD PCP - General 04/29/16
--- OUTSIDE RECORDS SUMMARY | 2024-02-04 09:33 | XMS_ITS | Clinical Summary ---
Author Organization [facility] Address [place], [place] [address] Care Team Providers Care Early Breastfeeding Care Specialist Name Role Phone YenAbhishek olvera Sen MARLEYC Primary Care Provider [phone] Bg Calderon MD Unavailable [phone] Alvaro Diallo MD Unavailable [phone] Allergies Active Allergy Reactions Criticality Noted Date Comments Penicillins Other - Describe In Comment Field 03/18/2012 Hands and feet get red and swollen. Juan Blunt ADMIN PROG COORD 2:40 PM 03/18/2012 Medications Medication Sig Dispensed [...] Celiac Sprue or H.Pylori (Dr. Angel - [facility]) 10/22/16 - Hgb to 11.6 and [...] Right Hip OA - Cortisone injection 05/08/14 ([facility]) Tinnitus 05/25/2014 Hiatal hernia with Associated GERD 05/25/2014 Overview (05/25/2014): Does well with sleeping sitting up Plantar fasciitis 05/25/2014 Overview (10/21/2016): No problem if not going barefoot CAD (coronary artery disease) by imaging 015 Overview (05/25/2014): CT Coronary Artery 09/2013 ([facility] [facility]): Calcium score 50-75%tile. Mild stenosis <25% in LAD and circumflex. Venous insufficiency 05/25/2014 HTN (hypertension) Hypercholesteremia Overview (07/27/2014): Previous Simvastatin 20mg, changed to Atorvastatin 40mg 07/27/[address] Coronary Calcium Score Resolved Problems Problem Noted Date Diagnosed Date Resolved Date Colon cancer screening in 14 with 5 year fu, 4 05/25/2014 Encounters Date Type Department Care Team Description 01/20/2024 Telephone [facility] [address] [place] [address] Cornel Harding MD Results 12/23/2023 9:30 AM CDT Office Visit [facility] [address] [place] [address] Cornel Harding MD 12/23/2023 Orders Only [facility] [address] [place] [address] Cornel Harding MD 1 scan: (1-Ord) ZIO REPORT 11/25/2023 11:00 AM CDT Ancillary [place] [facility] [place] [place] [address] [facility] [address] [place] [address] 11/25/2023 10:40 AM CDT Orders Only [facility] [address] [facility] [address] [place] [address] Lab 11/25/2023 Travel 11/18/2023 Nurse/Clinic Staff Only [facility] [address] [place] [address] Rupert Marcial MD 11/18/2023 Telephone [facility] [address] [place] [address] Rupert Marcial MD Results (Stress echo) 11/09/2023 1:00 PM CDT Ancillary Procedure [facility] [address] [place] [address] 11/09/2023 Travel from Last 3 Months Immunizations [...] DT Respiratory Rate 14 03/06/2013 11:03 AM BEHAVIORAL HEALTH CASE MANAGER Oxygen Saturation 99% 11/16/2013 8:24 AM [...] Tdap Completed 01/31/2009 (Comp leted outside of [employer]), 01/31/2009 Pneumococcal series for age 65+ Completed 5, 03/18/2012 DEXA/DXA scan for age 65+ Completed 2016 (Completed outside of [employer]), 09/15/2013 Procedures Procedure Name Priority Date/Time Associated Diagnosis Comments EXTENDED HOLTER Routine 01/03/[address] CARDIAC CORONARY ARTERIES DUAL READ Routine 11/25/2023 12:12 PM CDT Coronary artery disease involving beaver coronary artery of beaver heart without angina pectoris HTN (hypertension) Chest [...] (Electronic Signature) Narrative 11/28/2023 9:41 PM CDT ?[facility] ? Cardiac CT Report ??MRN: ?[id number] ?Name: ? TJ STOLL ?: ?Scan Date: ?Accession Number: ?[id number] ?Status: ?Final ? Electronically signed by Sergio [...] TYPE: ??Calcium score, Coronary CT Angiography SCANNER CELLAR HAND: ??SIEMENS SCANNER MODEL: ??SOMATOM [employer] DOSE REDUCTION ALGORITHM: ??Prospective/Nlxi-bvm-nbdky PHASE UNITS: ??% START PHASE: ??65 % [...] ??RUPERT MARCIAL ?TECHNOLOGIST: ??Alana Loredo Patient Account ?[id number] ICD10 Codes ?I25.10, I10, R07.9 Report generated [...] conjunction with the services provided by the [facility] ([facility]). CLINICAL HISTORY: ??Cardiac CT over-read. ? FINDINGS: Aorta: Normal caliber with no signs of dissection. Pulmonary arteries:No filling defects, bolus timing may somewhat limit evaluation. Mediastinum:No suspicious adenopathy. Lungs and pleural structures: Clear, no effusions Rupert Marcial MD CT * (ABNORMAL) CREATININE,ISTAT (11/25/2023 10:46 AM CDT) CREATININE, POCT 0.80 0.57 - 1.11 mg/dL 11/25/2023 10:51 AM CDT [facility] Comment:Caution: Patients ta vasyl Hydroxyurea have falsely increased iStat Creatinine results. Verify creatinine results ordering a Creatinine (31875.2) eGFR 76(L) >90 mL/min/1.7 3m2 11/25/2023 10:51 AM CDT [facility] Comment:As of 2021, eG FR is calculated by the CKD-EPI creatinine equation without race adjustment. eGFR can be influenced by muscle mass, exercise, and diet. The reported eGFR is an estimation only and is only applicable if the renal function is stable. Blood BLOOD SPECIMEN / Unknown 11/25/2023 10:46 AM CDT 11/25/2023 10:51 AM CDT Rupert Marcial MD CHEMISTRY [facility] [address] [id number], * ECHO STRESS EXERCISE WO CONTRAST (11/09/2023 1:35 PM CDT) EJECTION FRACTION 55 - 60% Anatomical Region Laterality Modality Ultrasound 11/09/2023 1:09 PM CDT Narrative 11/09/2023 2:05 PM CDT STRESS ECHOCARDIOGRAM TJ STOLL ?Accession#: ?? [id number] : ?1945 78 years Study Date: ?? 11/09/2023 1:09:11 PM Gender: F ? BP: ? 163/82 mmHg Height: 155.00 cm ? BSA: ?1.81 m? ? ? Weight: 82.00 kg ?Tech: ? MTS ?Referring MD: ABHISHEK YEN Site: ? [facility] Reading Location: [facility] Patient Location: [...] % of Max ? 102% Double Product 08978 Echo Findings:This is a positive stress echo [...] [place] [address]. Maximum stress test with 102.5% of age [...] . This study was interpreted by an [facility] accredited facility. ??Final ?? Procedure Note Aleida Molina MD - 11/09/2023 STRESS ECHOCARDIOGRAM TJ STOLL : 1945 78 years Study Date: 11/09/2023 1:09:11 PM Gender: F BP: 163/82 mmHg Height: 155.00 cm BSA: 1.81 m? ? ? Weight: 82.00 kg Tech: [facility] Referring MD: ABHISHEK YEN Site: [facility] Reading Location: [facility] Patient Location: Outpatient. Procedure: Stress Echo. [...] 142 % of Max 102% Double Product 91670 Echo Findings:This is a positive stress echo [...] 0 sec to stage I according to [facility] stress echo protocol. Test terminated due to fatigue. 4.6 METS wereachieved. The patient achieved a heart rate of 146 bpm which is 102.5% ofmaximum predicted heart rate. Maximum systolic blood pressure [place] 173 [place] [address]. Maximum stress test with 102.5% ofage predicted [...] . This study was interpreted by an [facility] accredited facility. Final Abhishek Yen PA-C ECHO [...] and hip. Scanning was performed on a shopa Scanner. Reporting is completed in the form [...] and hip. Scanning was performed on a shopa Scanner. Reportingis completed in the form of [...] Documents on File Type Date Recorded Patient Chicken Cutter Expl anation Healthcare Directive 02/15/2012 2:57 PM Power of Assistant Customer Service Manager 02/15/2012 2:54 PM Care Teams Early Breastfeeding Care Specialist Relationship Specialty Start Date End Date Abhishek Yen PA-C [address] [place] [address] PCP - General Physician Feather Curling Machine Operator 09/23/23 Bg Calderon MD [address] [address] Internal Medicine 09/23/23 Alvaro Diallo MD [address] [address] WIND FARM DESIGNER Obstetrics and Gynecology 05/25/14
--- OUTSIDE RECORDS SUMMARY | 2024-02-04 09:33 | XMS_ITS | Encounter Summary ---
Author Organization [facility] Address [address] [place] [address]. [place] [address] Care Team Providers Care College Advisor Name Role Phone Bg Calderon MD Primary Care Provider [phone] Ezra Hess DPM Unavailable [phone] Mimi Hernandez DPM, Podiatry /Foot and Ankle Surgery Unavailable Reason for Visit * Reason Comments Refill Request Encounter Details Date Type Department Care Team (Late st Contact Info) Description 10/12/2011 [facility] [address] [place] [address]. [address] [place] [address] Hakeem Viera MD [address] [place] [address] Refill Request Social History Tobacco Use Types [...] hypercholesterolemia documented in this encounter Care Teams College Advisor Relationship Specialty Start Date End Date Bg Calderon MD PCP - General 04/29/16 Ezra Hess DPM [id number] [facility] [address] [place] [address] Assigned Musculoskeletal Provider 09/22/20 11/23/20 Mimi Hernandez DPM, Podiatry/Foot and Ankle Surgery [address] [facility] [address] [place], [place] [address] Assigned Musculoskeletal Provider 11/24/20 05/22/22 documented as of this encounter
--- OUTSIDE RECORDS SUMMARY | 2024-02-04 09:33 | XMS_ITS | Encounter Summary ---
Author Organization [facility] Address [address] [place] [address]. [place] [address] Care Team Providers Care Welding Teacher Name Role Phone Bg Calderon MD Primary Care Provider [phone] Ezra Hess DPM Unavailable [phone] Mimi Hernandez DPM, Podiatry /Foot and Ankle Surgery Unavailable Reason for Visit * Reason Comments Refill Request Encounter Details Date Type Department Care Team (Late st Contact Info) Description 07/13/2011 [facility] [address] [place] [address]. [address] [place] [address] Hakeem Viera MD [address] [place] [address] Refill Request Social History Tobacco Use Types [...] hypertension documented in this encounter Care Teams Welding Teacher Relationship Specialty Start Date End Date Bg Calderon MD PCP - General 04/29/[address] [place] [address] [facility] [address] [place] [address] Assigned Musculoskeletal Provider 09/22/20 11/23/20 Mimi Hernandez, ALE, Podiatry/Foot and Ankle Surgery [address] [facility] [address] [place] [address] Assigned Musculoskeletal Provider 11/24/20 05/22/22 documented as of this encounter
--- OUTSIDE RECORDS SUMMARY | 2024-02-04 09:33 | XMS_ITS | Referral Summary ---
Author Organization [facility] Address [address] [place], [place] [address]. [place] [address] Care Team Providers Care Dull Coat Mill Operator Name Role Phone Bg Calderon MD Primary Care Provider [phone] Allergies Active Allergy Reactions Criticality Noted Date Comments Penicillins Rash 11/26/2006 Other reaction(s): Other - Describe In Comment Field Hands and feet get red and swollen. Juan Banda GENERAL PEDIATRICIAN 2:40 PM 03/18/2012 Medications Medication Sig Dispensed [...] 2 times daily Reported on 06/29/2016 Active [place]-3 Fatty Acids (FISH OIL) 1200 MG CAPS [...] MULTIDOSE 0.05 % ophthalmic emulsion 07/25/2020 Active Cast[place]-3 Fatty Acids (FISH OIL) 1200 MG capsule [...] AM CDT Pulse 57 06/29/2016 7:10 PM [employer] Temperature 36.6 ??C (97.8 ??F) 06/29/2016 7:10 PM CS T Respiratory Rate 18 10/20/2013 9:05 AM CDT Oxygen Saturation 97% 06/29/2016 7:10 PM [employer] Inhaled Oxygen Concentration - - Weight 82.3 kg (181 lb 6.4 oz) 11/15/2020 1:25 P M CDT Height 156.2 cm (5' 1.5) 11/15/2020 1:25 PM CDT Body Mass Index 33.72 11/15/2020 1:25 PM CDT Plan of Treatment Not on file Procedures Procedure Name Priority Date/Time Associated Diagnosis Comments MA SCREENING BILATERAL W/ JEREMIAS Routine 04/29/2016 11:05 AM [employer] Visit for screening mammogram DX BONE DENSITY Routine 04/29/2016 10:37 AM [employer] Asymptomatic postmenopausal state COLONOSCOPY Routine 02/20/2013 10:25 AM CDT LIPID PROFILE Routine 09/28/2011 7:32 AM CDT Pure hypercholesterolemia BASIC METABOLIC PANEL Routine 02/20/2008 7:06 AM CDT from Last 3 Months or Most Recently Relevant to Health Maintenance Results * MA Screen Bilateral w/Jeremias (04/29/2016 11:05 AM [employer]) Anatomical Region Laterality Modality Breast Bilateral Mammography Impressions 04/29/2016 11:49 AM [employer] IMPRESSION: BI-RADS CATEGORY: 1 - ??NEGATIVE. RECOMMENDED FOLLOW-UP: Annual Mammography. The patient will be notified of the results. TRISTON WEI Narrative 04/29/2016 11:49 AM [employer] Examination: Bilateral digital screening mammography with computer [...] LEO * DX Hip/Pelvis/Spine (04/29/2016 10:37 AM [employer]) Anatomical Region Laterality Modality Dexa Computed Radiogr aphy Narrative 04/30/2016 11:25 AM [employer] DX Hip/Pelvis/Spine Order #: [id number] Study Notes? Ericka Jasmine on 04/29/2016 10:45 AM ?? BONE DENSITOMETRY [facility] MERCERIZING SUPERVISOR & SURGERY- [place] [address] [place] [address] 04/29/2016 PATIENT: Tj Stoll CHART: [id number] ?? :?? 1945 AGE:?? 71 year old SEX:?? female REFERRING PROVIDER:?? Dr Diallo PROCEDURE:?? Bone density scanning was performed using DXA technology of the lumbar spine and hip.?? Scanning was performed on a Colibrí scanner.?? Reporting is completed in the form [...] to another DXA performed on the same Colibrí?? machine on 06/15/2011. IMPRESSION Z score is within the expected range for age Z score is below the expected range for age David Diallo MD ?? Discussed here Alvaro Diallo MD IMG DEXA ORDERABLES * COLONOSCOPY (02/20/2013 10:25 AM CDT) COLONOSCOPY [facility] Department Patient Name: Tj [...] Performing Lab Site ID: [id number] Lab Name: [facility] Address: [address] [place] [id number] Polisher Brass: Matt Weinberg M.D. Hakeem Viera MD LAB - BLOOD ORDERABL ES Performing Organization Address [facility]/ZIP Co de Phone Number ANGELIQUE DURBIN [address] [place] [phone] * (ABNORMAL) Basic metabolic panel (02/20/2008 7:06 [...] Recently Relevant to Health Maintenance Care Teams Dull Coat Mill Operator Relationship Specialty Start Date End Date Bg Calderon MD PCP - General 04/29/16
== END 2024-02-03 08:28 | disposition home or self-care (01) ==
LOC: NFLDREF 02-04 09:31
PROVIDERS: PCP Physician Assistant Medical; Referring Provider Physician Assistant Medical; Visit Provider Registered Nurse
DX: R19.7 Diarrhea, unspecified (principal); T81.9XXA Unspecified complication of procedure, initial encounter
CPT/HCPCS: 87045; 87046; 87427; 87493

== ENCOUNTER 2024-03-20 08:44 | Day surgery (SDC) | payer MEDICARE, SELFPAY ==
[2024-03-20] VITALS (22 sets, daily range): BP systolic 120–149; BP diastolic 56–82; PULSE 70–85; RESP 16–20; TEMP 36.2–36.8; O2SAT 93–98; BMI 32.8
--- OUTSIDE RECORDS SUMMARY | 2024-03-20 08:46 | XMS_ITS | Clinical Summary ---
Author Organization [facility] Address [address] [place] [address]. [place] [address] Care Team Providers Care Supervisor Pastry Name Role Phone Bg Calderon MD Primary Care Provider Michel champion Allergies Active Allergy Reactions Criticality Noted Date Comments Penicillins Rash 11/26/2006 Other reaction(s): Other - Describe In Comment Field Hands and feet get red and swollen. Juan Banda LEAD PROGRAMMER ANALYST 2:40 PM 03/18/2012 Medications Calcium Carbonate-Vitamin D (CALCIUM + D PO) Reported on 06/29/2016 Active VITAMIN E NATURAL PO Take 400 Units by mouth Active oxybutynin (DITROPAN) 5 MG tablet Take 5 mg by mouth 2 times daily Active sulfamethoxazole- trimethoprim (SMZ-TMP DS) 800-160 MG per tablet Take 1 tablet by mouth 2 times daily Reported on 06/29/2016 Active [place]-3 Fatty Acids (FISH OIL) 1200 MG CAPS Take 1,200 mg by mouth daily Active clindamycin (CLEOCIN) 300 MG capsule Take 300 mg by mouth as needed Reported on 06/29/2016 Active atorvastatin (LIPITOR) 40 MG tablet Reported on 06/29/2016 5 Active doxycycline (VIBRA-TABS) 100 MG tablet Reported on 06/29/2016 6 Active omeprazole (PRILOSEC) 40 MG capsule 6 Active tolterodine ER (DETROL LA) 4 MG 24 hr capsule 1 Active RESTASIS MULTIDOSE 0.05 % ophthalmic emulsion 1 Active [place]-3 Fatty Acids (FISH OIL) 1200 MG capsule Take 1,200 mg by mouth Active silver sulfADIAZINE (SILVADENE) 1 % external creamIndications: Dystrophic nail Applied to great toe nail procedure sites twice daily with dressing changes 85 g 1 Active silver sulfADIAZINE (SILVADENE) 1 % external creamIndications: Follow up Apply topically 2 times daily 25 g 1 1 Active Active Problems Problem Noted Date Diagnosed Date Ingrowing nail 04/03/2013 S/P TKR (total knee replacement) 02/27/2008 Overview (01/25/2012): (Problem list name updated by automated process. [...] School Help Needed Not on file 01/17 Comments No Sex and Gender Information Value Date Recorded Sex Assigned at Not on file Legal Sex Female 3:28 AM EMERGENCY MANAGEMENT SPECIALIST Gender Identity Not on file Sexual Orientation Not on file Last Filed Vital Signs Vital Sign Reading Time Taken Comments Blood Pressure 158/74 08/11/2023 9:25 AM CDT Pulse 57 06/29/2016 7:10 PM EMERGENCY MANAGEMENT SPECIALIST Temperature 36.6 C (97.8 F) 06/29/2016 7:10 PM EMERGENCY MANAGEMENT SPECIALIST Respiratory Rate 18 10/20/2013 9:05 AM CDT Oxygen Saturation 97% 06/29/2016 7:10 PM EMERGENCY MANAGEMENT SPECIALIST Inhaled Oxygen Concentration - - Weight 82.3 [...] BILATERAL W/ JEREMIAS Routine 04/29/2016 11:05 AM EMERGENCY MANAGEMENT SPECIALIST Visit for screening mammogram DX BONE DENSITY Routine 04/29/2016 10:37 AM EMERGENCY MANAGEMENT SPECIALIST Asymptomatic postmenopausal state COLONOSCOPY Routine 02/20/2013 10:25 AM CDT LIPID PROFILE Routine 09/28/2011 7:32 AM CDT Pure hypercholesterolemia BASIC METABOLIC PANEL Routine 02/20/2008 7:06 AM CDT from Last 3 Months or Most Recently Relevant to Health Maintenance Results * MA Screen Bilateral w/Jeremias (04/29/2016 11:05 AM EMERGENCY MANAGEMENT SPECIALIST) Anatomical Region Laterality Modality Breast Bilateral Mammography Impressions 04/29/2016 11:49 AM EMERGENCY MANAGEMENT SPECIALIST IMPRESSION: BI-RADS CATEGORY: 1 - NEGATIVE. RECOMMENDED FOLLOW-UP: Annual Mammography. The patient will be notified of the results. TRISTON WEI Narrative 04/29/2016 11:49 AM EMERGENCY MANAGEMENT SPECIALIST Examination: Bilateral digital screening mammography with computer aided detection including digital breast tomosynthesis, 04/29/2016 11:05 AM. Comparison: 10/05/2014 and 11/16/2012 History: No current breast concerns. BREAST DENSITY: Scattered fibroglandular densities. COMMENTS: No significant change. Procedure Note Triston Wei MD [...] TRISTON WEI Alvaro Diallo MD IMG MAMMOGRAPHY ORDERABLES Fi nal Result * DX Hip/Pelvis/Spine (04/29/2016 10:37 AM EMERGENCY MANAGEMENT SPECIALIST) Anatomical Region Laterality Modality Dexa Computed Radiogr aphy Narrative 04/30/2016 11:25 AM EMERGENCY MANAGEMENT SPECIALIST DX Hip/Pelvis/Spine Order #: [id number] Study Notes Ericka Jasmine on 04/29/2016 10:45 AM BONE DENSITOMETRY [facility] CRACKING UNIT OPERATOR & SURGERY- [address] [id number] 04/29/2016 PATIENT: Tj Stoll CHART: [id number] : 1945 AGE: [age] year old SEX: female REFERRING PROVIDER: Dr Diallo PROCEDURE: Bone density scanning was performed using DXA technology of the lumbar spine and hip. Scanning was performed on a SonarMed scanner. Reporting is completed in the form of a Z-score. The Z-score represents the standard deviation from average bone mass based on patient of the same age. RISK FACTORS: Post-menopausal, Height loss of 2 inches inches, Follow-up osteopenia CURRENT TREATMENT: Calcium with Vitamin D FINDINGS: Lumbar Spine (L1-L4) T-score: -1.3 Left Femoral Neck T-score: -2.5 Right Femoral Neck T-score: -2.2 Forearm (radius 33%) T-score: Lumbar (L1-L4) BMD: 1.029 Previous: 1.157 Total Hip Mean BMD: 0.705 Previous: Comparison is made to another DXA performed on the same [employer] machine on 06/15/2011. IMPRESSION Z score is within the expected range for age Z score is below the expected range for age David Diallo MD Discussed here us Alvaro Diallo MD IMG DEXA ORDERABLES Final Res ult * COLONOSCOPY (02/20/2013 10:25 AM CDT) COLONOSCOPY [facility] Endoscopy Department Patient Name: Tj Stoll Procedure Date: 02/20/2013 10:25:06 AM Date of : 1945 Admit Type: Outpatient Age: 67 Room: 1 Note Status: Finalized Attending MD: Ernie Biggs MD Procedure: Colonoscopy Indications: Colon cancer screening in patient at increased risk: Colorectal cancer in father Providers: Ernie Green MD, Brittani Robert RN Referring MD: Hakeem Viera MD Medicines: Midazolam 2 mg IV, Fentanyl 150 micrograms IV Complications: No immediate complications Procedure: Pre-Anesthesia Assessment: - Prior to the procedure, a History and Physical was performed, and patient medications and allergies were reviewed. The patient is competent. The risks and benefits of the procedure and the sedation options and risks were discussed with the patient. All questions were answered and informed consent was obtained. Patient identification and proposed procedure were verified by the physician in the endoscopy suite. Mental Status Examination: alert and oriented. Airway Examination: normal oropharyngeal airway and neck mobility. Respiratory Examination: clear to auscultation. CV Examination: normal. Prophylactic Antibiotics: The patient does not require prophylactic antibiotics. Prior Anticoagulants: The patient has taken no previous anticoagulant or antiplatelet agents. ASA Grade Assessment: II - A patient with mild systemic disease. After reviewing the risks and benefits, the patient was deemed in satisfactory condition to undergo the procedure. The anesthesia plan was to use moderate sedation / analgesia (conscious sedation). Immediately prior to administration of medications, the patient was re-assessed for adequacy to receive sedatives. The heart rate, respiratory rate, oxygen saturations, blood pressure, adequacy of pulmonary ventilation, and response to care were monitored throughout the procedure. The physical status of the patient was re-assessed after the procedure. After obtaining informed consent, the colonoscope was passed under direct vision. Throughout the procedure, the patient's blood pressure, pulse, and oxygen saturations were monitored continuously. The Colonoscope was introduced through the anus and advanced to the cecum, identified by appendiceal orifice & ileocecal valve. The colonoscopy was somewhat difficult due to significant looping. Successful completion of the procedure was aided by increasing the dose of sedation medication and applying abdominal pressure. The patient tolerated the procedure fairly well. The quality of the bowel preparation was excellent. Withdrawl time was 12 minutes. Findings: The perianal and digital rectal examinations were normal. Pertinent negatives include normal sphincter tone and no palpable rectal lesions. A pedunculated polyp was found in the ascending colon. The polyp was 3 mm in size. The polyp was removed with a jumbo cold forceps. Resection and retrieval were complete. A pedunculated polyp was found in the transverse colon. The polyp was 3 mm in size. The polyp was removed with a jumbo cold forceps. Resection and retrieval were complete. Multiple small-mouthed diverticula were found in the sigmoid colon. Impression: - One 3 mm polyp in the ascending colon. Resected and retrieved. - One 3 mm polyp in the transverse colon. Resected and retrieved. - Diverticulosis sigmoid colon. Recommendation: - Use fiber, for example Citrucel, Fibercon, Konsyl or Metamucil. - Await pathology results. - Repeat colonoscopy in 5 years for surveillance. _ Ernie Green MD Signed Date: 02/20/2013 [...] 5 AM CDT Hakeem Viera MD PROCEDURES Final Result RADIOLOGY RESULTS * Lipid Profile (09/28/2011 7:32 [...] Performing Lab Site ID: CB Lab Name: [facility] Address: [address] [place] [id number] High Climber: Matt Weinberg M.D. us Hakeem Viera MD LAB - BLOOD ORDERABLES Final Result [facility] [address] [place] [id number] * (ABNORMAL) Basic metabolic panel (02/20/2008 7:06 [...] Usama De Leon MD LAB - BLOOD ORDERABLES Final Result MIS[facility] from Last 3 Months or Most Recently Relevant to Health Maintenance Insurance [facility] MEDICARE ADVANTAGE Care Teams Supervisor Pastry Relationship Specialty Start Date End Date Bg Calderon MD PCP - General 04/29/16
--- OUTSIDE RECORDS SUMMARY | 2024-03-20 08:47 | XMS_ITS | Encounter Summary ---
Author Organization [facility] Address [address] [place] [address]. [place] [address] Care Team Providers Care Food Counselor Name Role Phone Bg Calderon MD Primary Care Provider Ezra Garcia DPRichard Unavailable [phone] Mimi Hernandez DPM, Podiatry /Foot and Ankle Surgery Unavailable Reason for Visit * Reason Comments Refill Request Encounter Details Date Type Department Care Team (Late st Contact Info) Description 07/13/2011 [facility] [address] [place] [address]. [address] [place] [address] Hakeem Viera MD [address] [place] [phone] Refill Request Social History Tobacco Use Types Packs/Day Years Used Date Smoking Tobacco: Never Alcohol Use Standard Drinks/Week Comments No 0 (1 standard drink = 0.6 oz pur e alcohol) Comments No Sex and Gender Information Value Date Recorded Sex Assigned at Not on file Legal Sex Female 3:28 AM WORM PACKER Gender Identity Not on file Sexual Orientation Not on file documented as of this encounter Plan of Treatment Not on file documented as of this encounter Visit Diagnoses Diagnosis HTN (hypertension) Unspecified essential hypertension documented in this encounter Care Teams Food Counselor Relationship Specialty Start Date End Date Bg Calderon MD PCP - General 04/29/16 Ezra Hess DPM [id number] [facility] [address] [place] [address] Assigned Musculoskeletal Provider 09/22/20 11/23/20 Mimi Hernandez DPM, Podiatry/Foot and Ankle Surgery [address] [phone] Assigned Musculoskeletal Provider 11/24/20 05/22/22 documented as of this encounter
--- OUTSIDE RECORDS SUMMARY | 2024-03-20 08:47 | XMS_ITS | Referral Summary ---
Author Organization [facility] Address [address] [place], [place] [address]. [place] [address] Care Team Providers Care Patient Financial Coordinator Name Role Phone Bg Calderon MD Primary Care Provider Michel champion Allergies Active Allergy Reactions Criticality Noted Date Comments Penicillins Rash 11/26/2006 Other reaction(s): Other - Describe In Comment Field Hands and feet get red and swollen. Juan Banda TOMBSTONE ERECTOR HELPER 2:40 PM 03/18/2012 Medications Calcium Carbonate-Vitamin D (CALCIUM + D PO) Reported on 06/29/2016 Active VITAMIN E NATURAL PO Take 400 Units by mouth Active oxybutynin (DITROPAN) 5 MG tablet Take 5 mg by mouth 2 times daily Active sulfamethoxazole- trimethoprim (SMZ-TMP DS) 800-160 MG per tablet Take 1 tablet by mouth 2 times daily Reported on 06/29/2016 Active [place]-3 Fatty Acids (FISH OIL) 1200 MG CAPS [...] MULTIDOSE 0.05 % ophthalmic emulsion 1 Active [place]-3 Fatty Acids (FISH OIL) 1200 MG capsule [...] on file Legal Sex Female 3:28 AM J2EE APPLICATION DEVELOPER Gender Identity Not on file Sexual Orientation Not on file Last Filed Vital Signs Vital Sign Reading Time Taken Comments Blood Pressure 158/74 08/11/2023 9:25 AM CDT Pulse 57 06/29/2016 7:10 PM J2EE APPLICATION DEVELOPER Temperature 36.6 C (97.8 F) 06/29/2016 7:10 PM J2EE APPLICATION DEVELOPER Respiratory Rate 18 10/20/2013 9:05 AM CDT Oxygen Saturation 97% 06/29/2016 7:10 PM J2EE APPLICATION DEVELOPER Inhaled Oxygen Concentration - - Weight 82.3 kg (181 lb 6.4 oz) 11/15/2020 1:25 P M CDT Height 156.2 cm (5' 1.5) 11/15/2020 1:25 PM CDT Body Mass Index 33.72 11/15/2020 1:25 PM CDT Plan of Treatment Not on file Procedures Procedure Name Priority Date/Time Associated Diagnosis Comments MA SCREENING BILATERAL W/ JEREMIAS Routine 04/29/2016 11:05 AM J2EE APPLICATION DEVELOPER Visit for screening mammogram DX BONE DENSITY Routine 04/29/2016 10:37 AM J2EE APPLICATION DEVELOPER Asymptomatic postmenopausal state COLONOSCOPY Routine 02/20/2013 10:25 AM CDT LIPID PROFILE Routine 09/28/2011 7:32 AM CDT Pure hypercholesterolemia BASIC METABOLIC PANEL Routine 02/20/2008 7:06 AM CDT from Last 3 Months or Most Recently Relevant to Health Maintenance Results * MA Screen Bilateral w/Jeremias (04/29/2016 11:05 AM J2EE APPLICATION DEVELOPER) Anatomical Region Laterality Modality Breast Bilateral Mammography Impressions 04/29/2016 11:49 AM J2EE APPLICATION DEVELOPER IMPRESSION: BI-RADS CATEGORY: 1 - NEGATIVE. RECOMMENDED FOLLOW-UP: Annual Mammography. The patient will be notified of the results. TRISTON WEI Narrative 04/29/2016 11:49 AM J2EE APPLICATION DEVELOPER Examination: Bilateral digital screening mammography with computer [...] Result * DX Hip/Pelvis/Spine (04/29/2016 10:37 AM J2EE APPLICATION DEVELOPER) Anatomical Region Laterality Modality Dexa Computed Radiogr aphy Narrative 04/30/2016 11:25 AM J2EE APPLICATION DEVELOPER DX Hip/Pelvis/Spine Order #: [id number] Study Notes Ericka Jasmine on 04/29/2016 10:45 AM BONE DENSITOMETRY [facility] EMBOSSING CLERK & SURGERY- [address] [phone] 04/29/2016 PATIENT: Tj Stoll CHART: [id number] : 1945 AGE: [age] year old SEX: female REFERRING PROVIDER: Dr Diallo PROCEDURE: Bone density scanning was performed using DXA technology of the lumbar spine and hip. Scanning was performed on a Archive scanner. Reporting is completed in the form [...] to another DXA performed on the same Archive machine on 06/15/2011. IMPRESSION Z score is within the expected range for age Z score is below the expected range for age David Diallo MD Discussed here us Alvaro Diallo MD IMG DEXA ORDERABLES Final Res ult * COLONOSCOPY (02/20/2013 10:25 AM CDT) COLONOSCOPY [facility] Endoscopy Department Patient Name: Tj Stoll Procedure [...] RADIOLOGY RESULTS 02/20/2013 10:2 5 AM CDT us Hakeem Viera MD PROCEDURES Final Result RADIOLOGY [...] Performing Lab Site ID: CB Lab Name: [facility] Address: [address] [place] [id number] Save All Operator: Matt Weinberg M.D. Hakeem Viera MD LAB - BLOOD ORDERABLES Final Result [facility] [address] [place] [id number] * (ABNORMAL) Basic metabolic panel (02/20/2008 7:06 [...] Most Recently Relevant to Health Maintenance Insurance [facility] MEDICARE ADVANTAGE Care Teams Patient Financial Coordinator Relationship Specialty Start Date End Date Bg Calderon MD PCP - General 04/29/16
--- OUTSIDE RECORDS SUMMARY | 2024-03-20 08:47 | XMS_ITS | Clinical Summary ---
Author Organization [facility] Address [place], [place] [address] Care Team Providers Care Flat Lock Machine Operator Name Role Phone YenYael olvera Sen MARLEYC Primary Care Provider [phone] Bg Calderon MD Unavailable [phone] Alvaro Diallo MD Unavailable [phone] Allergies Active Allergy Reactions Criticality Noted Date Comments Penicillins Other - Describe In Comment Field 03/18/2012 Hands and feet get red and swollen. Juan Blunt BUSINESS PROGRAMMER 2:40 PM 03/18/2012 Medications Medication Sig Dispensed [...] Sprue or H.Pylori (Dr. Angel - [facility]) 10/22/16 - Hgb to 11.6 and [...] Right Hip OA - Cortisone injection 05/08/14 ([facility]) Tinnitus 05/25/2014 Hiatal hernia with Associated GERD 05/25/2014 Overview (05/25/2014): Does well with sleeping sitting up Plantar fasciitis 05/25/2014 Overview (10/21/2016): No problem if not going barefoot CAD (coronary artery disease) by imaging 015 Overview (05/25/2014): CT Coronary Artery 09/2013 ([place]): Calcium score 50-75%tile. Mild stenosis <25% in LAD and circumflex. Venous insufficiency 05/25/2014 HTN (hypertension) Hypercholesteremia Overview (07/27/2014): Previous Simvastatin 20mg, changed to Atorvastatin 40mg 07/27/[address] Coronary Calcium Score Resolved Problems Problem Noted Date Diagnosed Date Resolved Date Colon cancer screening in 14 with 5 year fu, 4 05/25/2014 Encounters Date Type Department Care Team Description 01/20/2024 Telephone [facility] [address] [place] [address] Cornel Harding MD Results 12/23/2023 9:30 AM CDT Office Visit 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 Oxygen Saturation 99% 11/16/2013 8:24 AM [...] 1-dose 75+ series) 2021 COVID-19 vaccine series (2023- season) 2023 03/25/2021, 08/10/2020, 07/20/2020 Influenza for age 65+ 12/26/2023 02/28/2016 , 02/01/2015, 02/16/2014, Additional history exists Tdap Completed 01/31/2009 (Comp leted outside of [facility]), 01/31/2009 Pneumococcal series for age 65+ Completed 5, 03/18/2012 DEXA/DXA scan for age 65+ Completed 2016 (Completed outside of [facility]), 09/15/2013 Procedures Procedure Name Priority Date/Time Associated Diagnosis Comments EXTENDED HOLTER Routine 01/03/2024 Palpitations XR DXA BONE DENSITY 2 SITES AXIAL Routine 09/15/2013 9:46 AM CDT Osteoporosis Annual physical exam from Last 3 Months or Most Recently Relevant to Health Maintenance Results * EXTENDED HOLTER (01/03/2024) Cornel Harding MD CARDIAC SERVIC ES ORD * XR DXA BONE DENSITY 2 SITES (09/15/2013 9:46 AM CDT) Anatomical Region Laterality Modality Spine, HIPS, HIPL, HIPR Other Impressions 09/15/2013 12:42 PM CDT 68 y.o. female with osteopenia by WHO criteria as evidenced by t score of negative 2.1 at right femoral neck. The patient's 10 year probability of suffering a major osteoporotic fracture is 5.5 % and the 10 year probability of suffering a hip fracture is 0.9 %. The risk estimate was calculated using FRAX calculator. All treatment decisions require clinical judgement and consideration of individual patient factors including patient preferences, comorbidities, and previous drug use. Risk factors not included in the FRAX model include frailty, falls, vitamin d deficiency, increased bone turnover or interval significant decline in bone density. The National Osteoporosis Foundation recommends pharmacologic treatment [...] and repeat bone density in 2-3 years. Kendell Guardado M.D.CMigue Narrative 09/15/2013 12:42 PM CDT PATIENT NAME: [...] and hip. Scanning was performed on a Job App Plus Scanner. Reporting is completed in the form [...] equals -0.5 Prior BMD % of change Procedure Note Ernie Condon MD - 09/15/2013 [...] and hip. Scanning was performed on a Job App Plus Scanner. 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
--- OUTSIDE RECORDS SUMMARY | 2024-03-20 08:47 | XMS_ITS | Encounter Summary ---
Author Organization [facility] Address [address] [place] [address]. [place] [address] Care Team Providers Care Lamp Shade Maker Name Role Phone Bg Calderon MD Primary Care Provider Ezra Garcia DPRichard Unavailable [phone] Mimi Hernandez DPM, Podiatry /Foot and Ankle Surgery Unavailable Reason for Visit * Reason Comments Refill Request Encounter Details Date Type Department Care Team (Late st Contact Info) Description 10/12/2011 [facility] [address] [place] [address]. 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 Gender Identity Not on file Sexual Orientation Not on file documented as of this encounter Plan of Treatment Not on file documented as of this encounter Visit Diagnoses Diagnosis Hypercholesterolemia Pure hypercholesterolemia documented in this encounter Care Teams Lamp Shade Maker Relationship Specialty Start Date End Date Bg Calderon MD PCP - General 04/29/16 Ezra Hess DPM [address] [facility] [address] [place] [address] Assigned Musculoskeletal Provider 09/22/20 11/23/20 Mimi Hernandez, ALE, Podiatry/Foot and Ankle Surgery [address] [place] [address] Assigned Musculoskeletal Provider 11/24/20 05/22/22 documented as of this encounter
--- NOTE | 2024-03-20 08:53 | W.PM.H&PU ---
History & Physical Update History & Physical Update H&P Reviewed and patient assessed: No changes noted H&P Updates: Tj is feeling back to baseline after her recent surgery for bowel obstruction.
--- NOTE | 2024-03-20 08:53 | PM.GSPRC ---
Operative Note Date of procedure: 03/20/24 Pre-op diagnosis: Symptomatic right thyroid nodule. Post-op diagnosis: Same Type of Procedure: Right thyroid lobectomy Indications: The patient is a 78-year-old female who has been followed in surgery clinic for incidentally noted thyroid nodules. The largest nodule on the right had previously been biopsied and was benign. She was placed on surveillance imaging. There was an increase in growth of the left nodule on 2-year surveillance imaging therefore repeat biopsy was performed on both the right and left-sided nodules which were both benign. She had been having ongoing symptoms including difficulty swallowing and hoarseness. She had workup which included an upper endoscopy, swallow evaluation, cord evaluation by ENT and she had been taking an acid blocking medication for possible reflux related laryngitis. Workup was normal except for possible sleep apnea. Of note, she also underwent cardiac workup. We discussed that her thyroid was unlikely contributing to those symptoms, however, ultimately, she is feeling pressure and fullness on the right side of her neck anteriorly and feels as though it is affecting her breathing. On imaging she is noted to have a nearly 3 cm anterior right-sided thyroid nodule. Given that the area of her symptoms corresponds to the nodule, we discussed that would be reasonable to perform a right-sided hemithyroidectomy. Procedure Description: After discussing the risks and benefits of the procedure, the patient signed informed consent.? The operative site was marked and the patient was brought to the operating room and placed on the operating table in supine position.? Care was taken to pad the patient's pressure points.?? The patient was then iintubated by anesthesia.?? The patient's arms were tucked and the neck extended. The nim monitor electrodes were placed in the appropriate location on the upper chest. The operative site was then prepped and draped in the usual sterile fashion.? A time-out was then performed. An incision was created along the patient's neck lines using a scalpel. Dissection was taken through the subcutaneous fat and platysma muscle using cautery. Dr. Sheppard joined me at this point and provided retraction while I created subplatysmal flaps superiorly to the tracheal cartilage and inferiorly to the sternal notch. The cervical fascia was incised in the midline and the strap muscles dissected from the thyroid capsule. Dr. Sheppard then retracted the thyroid medially while I divided the wispy adhesions using cautery. The middle thyroid vein was encountered. I dissected this out and doubly ligated with suture and clips before dividing several small branches on the thyroid. Once this was done, Dr. Sheppard was able to reflect the thyroid medially and inferiorly and I dissected the strap muscles away from the superior lobe of the thyroid laterally. Once we reached the upper extent, Dr. Sheppard again provided exposure for me to dissect the space of Reeve medially, again ligating small vessels before dividing. I was then able to see the superior pole vessels an divide these after carefully dissecting them out with a right angle. Again, they were ligated with ties and clips prior to dividing. Now, with the superior pole free, we turned our attention to the inferior pole. this was fairly mobile. A few inferior pole vessels were carefully dissected free and ligated and divided. The thyroid was reflected medially and I continued my dissection with care to stay on the gland. A structure that appeared to be parathyroid gland superiorly was dissected away from the thyroid gland. Small vessels here were ligated with silk ties, permitting the thyroid to be mobilized further medially. The recurrent laryngeal nerve was identified in its usual location both visually and with the NIM probe. The thyroid was then taken off of the trachea using cautery for wispy attachments and ties for small vessels. At the ligament of torres a small amount of thyroid tissue was left to avoid injury to the nerve. Once the isthmus was reached, ligasure was used to divide the thyroid. The specimen was marked with a single suture superiorly and a double suture at the isthmus and sent to pathology. The isthmus was oversewn with a 3-0 vicryl suture in a running fashion. The thyroid bed was examined for hemostasis. A small area of thyroid tissue at the ligament of torres was bleeding. This was oversewn with vicryl resulting in hemostasis. There was no bleeding noted with Valsalva. Jade was placed in the thyroid bed. The inferior aspect of the isthmus was tagged with 4-0 prolene suture which was brought to the strap muscles and tied and clipped to the cervical fascia to help identify the left lobe of the thyroid in the future. The strap muscles were closed with a running 3-0 vicryl suture. The platysma layer was closed with interrupted 3-0 Vicryl as well. The dermis was closed with 3-0 vicryl suture and the skin with running 4-0 monocryl subcuticular suture. Sterile dressings were then applied. ? The patient was then woken and transported to the recovery area in stable condition. ? The patient tolerated the procedure well. Findings: Right thyroid with inferior nodule noted. Anesthesia: GETA Surgeon: Dorene Bassett MD Co-Surgeon: Cris Sheppard MD Estimated blood loss (mL): 10 Specimen: Other Additional Specimen Information: Right thyroid, single stitch superior, double isthmus Condition: stable Disposition: PACU
[2024-03-20] MEDS: LACTATED RINGERS 1000 ML 1,000 ML 100 ML IV (09:41)
[2024-03-20] MEDS: SODIUM CHLORIDE 0.9 % (FLUSH) 10 ML SYRINGE IVF (09:42)
--- NOTE | 2024-03-20 11:02 | W.ANESCHARGE ---
Anesthesia Charges Start Date/Time Anesthesia Start Date: 03/20/24 Anesthesia Start Time: 09:43 Stop Date/Time Anesthesia Stop Date: 03/20/24 Anesthesia Stop Time: 12:40 Summary Extremes of Age - Over 70 or under 1: MDA
--- NOTE | 2024-03-20 12:15 | PM.GSPRC ---
Operative Note Date of procedure: 03/20/24 Pre-op diagnosis: 1. Symptomatic right thyroid lobe nodule. Post-op diagnosis: Same Type of Procedure: 1. Right thyroid lobectomy. Indications: 78-year-old female was seen in clinic by one [facility] for evaluation of right thyroid nodules. Right thyroid lobectomy was recommended. Please see Dr. Bassett note for details. I was asked to assist with right thyroid lobectomy. Procedure Description: After discussing the risks and benefits of the procedure, the patient signed informed consent.? The operative site was marked and the patient was brought to the operating room and placed on the operating table in supine position.? Care was taken to pad the patient's pressure points.?? The patient was then intubated by anesthesia.?? The operative site was then prepped and draped in the usual sterile fashion.? A time-out was then performed. The skin incision was made in the central neck just above the sternal notch. Subcutaneous fat and platysma were divided with cautery. Strap muscles were divided in the midline. During this part of the dissection I assisted with retraction and visualization. The right thyroid lobe was then identified and retracted medially. Middle thyroid vessels had multiple branches. Middle thyroid vasculature was then divided sequentially with clamps, Vicryl ties and clips. During this part of the procedure I assisted with retraction, mobilization, and hemostasis. We then turned our attention to the superior pole of the right thyroid lobe. Superior pole vasculature was then controlled with Vicryl ties and divided. The superior parathyroid gland was not clearly identified. We then turned our attention to the inferior lobe of the right thyroid gland. This was mobilized off the trachea and subcutaneous fat with cautery. Hemostasis achieved with Vicryl ties and clips. The right thyroid lobe was then retracted medially and the right laryngeal nerve was identified with NIM probe. Care was taken not to injure the recurrent laryngeal nerve. We then continued with mobilizing the thyroid off the trachea. During this part of the dissection I assisted with retraction and hemostasis. When the right thyroid lobe was mobile, the isthmus was divided with LigaSure. Dr. Bassett then oversewed the isthmus with a running Vicryl suture. The right thyroid lobe was marked with a single stitch at the superior lobe and double stitch at the isthmus and sent to pathology. Surgical field was examined for hemostasis, and no bleeding was seen. Valsalva maneuver was done and no bleeding was seen during a Valsalva maneuver. At this time the critical part of the procedure was completed, and I left the operating room. Dr. Bassett continued with incisional closure. Findings: Nodular thyroid lobe. Anesthesia: GETA Surgeon: Dorene Bassett MD Co-Surgeon: Antoine Sheppard MD Additional Specimen Information: 1. Right thyroid lobe. Condition: stable Disposition: PACU
--- NOTE | 2024-03-20 12:45 | P.ANES_ITS ---
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
--- NOTE | 2024-03-20 16:23 | PM.GSPN ---
Subjective Subjective Date Seen: 03/20/24 Interval history: Tj is doing well this afternoon. Denies pain. No shortness of breath. Exam Narrative: Exam Narrative: General: No acute distress HEENT: No hoarseness appreciated Neck: Soft, no evidence of hematoma. Const: Vital Signs, click to edit/add: Vital Signs - 24 hr 03/20/24 09:09 03/20/24 12:36 03/20/24 12:40 Temperature 98.2 F 97.7 F Pulse Rate 80 84 83 Respiratory Rate 20 16 16 Blood Pressure 149/78 H 145/82 H 144/78 H Pulse Oximetry 98 93 95 Oxygen Delivery Me thod Room Air Room Air Room Air 03/20/24 12:45 03/20/24 12:50 03/20/24 12:55 Temperature Pulse Rate 85 82 82 Respiratory Rate 16 16 16 Blood Pressure 141/72 H 136/72 143/72 H Pulse Oximetry 94 94 95 Oxygen Delivery Me thod Room Air Room Air Room Air 03/20/24 13:00 03/20/24 13:09 03/20/24 13:15 Temperature 98.1 F 97.8 F Pulse Rate 83 78 Respiratory Rate 16 16 Blood Pressure 133/72 138/67 Pulse Oximetry 94 95 95 Oxygen Delivery Me thod Room Air Room Air 03/20/24 13:15 03/20/24 13:30 03/20/24 13:45 Temperature 97.8 F 97.9 F Pulse Rate 78 75 78 Respiratory Rate 16 16 16 Blood Pressure 138/67 135/61 128/66 Pulse Oximetry 95 96 94 Oxygen Delivery Me thod Room Air Room Air Room Air 03/20/24 14:00 03/20/24 14:15 03/20/24 14:45 Temperature 98.2 F 98 F Pulse Rate 79 80 73 Respiratory Rate 16 16 16 Blood Pressure 122/57 L 129/62 120/74 Pulse Oximetry 95 96 97 Oxygen Delivery Me thod Room Air Room Air Room Air 03/20/24 15:00 03/20/24 15:15 Temperature 97.1 F L Pulse Rate 76 Respiratory Rate 16 16 Blood Pressure 120/59 L Pulse Oximetry 97 94 Oxygen Delivery Me thod Room Air Room Air Progress Note:A&P Assessment and plan (1) S/P partial thyroidectomy: Status: Acute Plan Tj is a 78-year-old female who is postop day 0 from right hemithyroidectomy for a symptomatic right-sided nodule. She is doing well. Okay to advance diet. Recommend head of bed elevated. -notify surgeon with shortness of breath or neck fullness. -anticipate discharge home in the morning.
--- NOTE | 2024-03-20 18:55 | PC.NURSE ---
End of shift [id number]: Pt arrived from PACU @ 1315. She?s been A&O, afebrile & VSS. Anterior neck dressing is C/D/I with small area of petechiae underneath dressing. Pt has had ice pack on her neck intermittently. She?s voided and ambulating independently in her room. Adequate PO intake with no nausea or swallowing pain. Denies overall pain, nausea or dizziness. PIV in left wrist & left hand both SL and C/D/I. Plan to discharge home tomorrow morning accompanied by her daughter. ?
[2024-03-20] MEDS: AMLODIPINE 5 MG TABLET 2.5 MG PO (20:58)
[2024-03-21 03:00] VITALS: BP 120/64; PULSE 76; RESP 16; TEMP 36.6; O2SAT 95
--- NOTE | 2024-03-21 06:25 | PC.NURSE ---
End of shift note [id number]: Pt alert & oriented x 4 and able to make needs known. Dressing to anterior neck noted to be C/D/I with petechiae noted under dressing which was also previously noted by day nurse yesterday postoperatively. Pt has been denying nausea and pain when asked throughout the shift with ice pack provided. Pt transferring/ambulating independently in room. VSS. Pt has been afebrile and on RA throughout the shift. Pt continent of bladder using toilet for toileting. ?
[2024-03-21 07:00] VITALS: PULSE 72; RESP 18
[2024-03-21 07:39] VITALS: BP 123/71; PULSE 72; RESP 18; TEMP 36.7; O2SAT 98
--- NOTE | 2024-03-21 08:03 | P.DS_ITS ---
DS: Providers Provider Date Seen: 03/21/24 Primary care physician: Yael Yen PA-C Attending Physician on discharge: Dorene Bassett MD DS: Diagnosis Discharge Diagnosis (1) S/P partial thyroidectomy: Status: Acute Problem details: Right DS: Summary Hospital Course Hospital Course: Tj is a 78 year-old female admitted for observation after hemithyroidectomy for a symptomatic right thyroid nodule. On post-op day 1 she was tolerating a diet and had minimal pain. She felt her hoarseness had improved from pre-op. She was deemed safe for discharge home. Status at Discharge Functional status at discharge: independent ambulation Overall status at discharge: patient is back to baseline Time Spent with Patient Time attestation: Total time spent providing and/or coordinating discharge services: Exam Narrative: Exam Narrative: General: NAD HENT: no Hoarsness noted NECK: dressing in place. No swelling or bruising noted Resp: breathing non-labored on room air CV; regular rate Const: Vital Signs, click to edit/add: Vital Signs - 24 hr 03/20/24 09:09 03/20/24 12:36 03/20/24 12:40 Temperature 98.2 F 97.7 F Pulse Rate 80 84 83 Pulse Rate [Pulse Oximeter] Respiratory Rate 20 16 16 Blood Pressure 149/78 H 145/82 H 144/78 H Blood Pressure [Le ft Arm] Blood Pressure [Ri ght Arm] Pulse Oximetry 98 93 95 Oxygen Delivery Me thod Room Air Room Air Room Air 03/20/24 12:45 03/20/24 12:50 03/20/24 12:55 Temperature Pulse Rate 85 82 82 Pulse Rate [Pulse Oximeter] Respiratory Rate 16 16 16 Blood Pressure 141/72 H 136/72 143/72 H Blood Pressure [Le ft Arm] Blood Pressure [Ri ght Arm] Pulse Oximetry 94 94 95 Oxygen Delivery Me thod Room Air Room Air Room Air 03/20/24 13:00 03/20/24 13:09 03/20/24 13:15 Temperature 98.1 F 97.8 F Pulse Rate 83 78 Pulse Rate [Pulse Oximeter] Respiratory Rate 16 16 Blood Pressure 133/72 138/67 Blood Pressure [Le ft Arm] Blood Pressure [Ri ght Arm] Pulse Oximetry 94 95 95 Oxygen Delivery Me thod Room Air Room Air 03/20/24 13:15 03/20/24 13:30 03/20/24 13:45 Temperature 97.8 F 97.9 F Pulse Rate 78 75 78 Pulse Rate [Pulse Oximeter] Respiratory Rate 16 16 16 Blood Pressure 138/67 135/61 128/66 Blood Pressure [Le ft Arm] Blood Pressure [Ri ght Arm] Pulse Oximetry 95 96 94 Oxygen Delivery Me thod Room Air Room Air Room Air 03/20/24 14:00 03/20/24 14:15 03/20/24 14:45 Temperature 98.2 F 98 F Pulse Rate 79 80 73 Pulse Rate [Pulse Oximeter] Respiratory Rate 16 16 16 Blood Pressure 122/57 L 129/62 120/74 Blood Pressure [Le ft Arm] Blood Pressure [Ri ght Arm] Pulse Oximetry 95 96 97 Oxygen Delivery Me thod Room Air Room Air Room Air 03/20/24 15:00 03/20/24 15:15 03/20/24 16:23 Temperature 97.1 F L Pulse Rate 76 75 Pulse Rate [Pulse Oximeter] Respiratory Rate 16 16 16 Blood Pressure 120/59 L 130/56 L Blood Pressure [Le ft Arm] Blood Pressure [Ri ght Arm] Pulse Oximetry 97 94 96 Oxygen Delivery Me thod Room Air Room Air Room Air 03/20/24 17:25 03/20/24 18:12 03/20/24 19:20 Temperature 98.2 F 97.6 F 97.6 F Pulse Rate 74 76 75 Pulse Rate [Pulse Oximeter] Respiratory Rate 16 16 18 Blood Pressure 129/61 121/67 130/61 Blood Pressure [Le ft Arm] Blood Pressure [Ri ght Arm] Pulse Oximetry 98 97 94 Oxygen Delivery Me thod Room Air Room Air Room Air 03/20/24 23:00 03/20/24 23:00 03/20/24 23:10 Temperature 97.6 F Pulse Rate Pulse Rate [Pulse Oximeter] 70 70 Respiratory Rate 18 18 18 Blood Pressure Blood Pressure [Le ft Arm] Blood Pressure [Ri ght Arm] 122/67 Pulse Oximetry 95 95 Oxygen Delivery Me thod Room Air Room Air 03/21/24 03:00 03/21/24 07:39 Temperature 97.8 F 98.0 F Pulse Rate Pulse Rate [Pulse Oximeter] 76 72 Respiratory Rate 16 18 Blood Pressure Blood Pressure [Le ft Arm] 123/71 Blood Pressure [Ri ght Arm] 120/64 Pulse Oximetry 95 98 Oxygen Delivery Me thod Room Air DS: Data Data Completed and Pending Completed studies during hospitalization: Procedures Drainage of Stomach with Drainage Device, Open Approach (01/26/24) Release Small Intestine, Open Approach (01/26/24) Discharge Plan Discharge Disposition: Home w/ Parent or Adult Discharging Surgeon: Dorene Bassett Follow-Up Appointment: 2 weeks - [place] Prescriptions: New hydrocodone-acetaminophen 5-325 mg Tablet 1 tab PO Q6H PRN (Reason: Pain) Qty: 10 0RF Continued Metamucil 3.4 gram/5.4 gram powder 1 tbsp PO ONCE Rx Instructions: mix into at least 8 oz of water or juice before administering lisinopril 20 mg tablet 20 mg PO DAILY Qty: 90 3RF meloxicam 7.5 mg tablet 7.5 mg PO QDAY Qty: 90 3RF omega 8-rkz-gkt-fish oil [Fish Oil] 60-90-500 mg capsule 1 cap PO DAILY Ca carb-D3-mag sm-xgz-ylgz-Zn 600 mg-20 mcg- 40 mg-0.25 mg tablet,chewable 1 tab PO DAILY atorvastatin 40 mg tablet 40 mg PO DAILY amlodipine 2.5 mg tablet 2.5 mg PO HS omeprazole 40 mg capsule,delayed release(DR/EC) 40 mg PO DAILY alendronate 70 mg tablet 70 mg PO QWEEK 90 Days Qty: 13 3RF solifenacin 10 mg tablet 10 mg PO DAILY Qty: 90 3RF Activity Level: Activity as Tolerated and No strenuous activity Activity Detail: No lifting more than 20 lb for 2 weeks. Discharge Diet: Regular Patient Instructions: Partial Thyroidectomy (DC) Additional Instructions: Wound care: Your sutures are under the skin and will dissolve over time. Leave steri strips (white bandages) over incisions until they fall off (or remove after 7 days). OK to shower tomorrow but avoid bathing, soaking or swimming for 2 weeks. Pat the incisions dry. No need to wash or scrub the area. Apply ice to the area as needed for swelling. It is also OK to use a heating pad if this provides more comfort to you. Pain control: You were prescribed a pain medication. This medication contains acetaminophen (Tylenol). If you are taking your prescribed pain pills 4 times daily, do not take additional acetaminophen. As your pain improves, you can try taking acetaminophen instead of the prescribed pain pill. Take an ngeu-gqu-lcxqncn stool softener while you are taking prescribed pain medications to help alleviate constipation. I recommend Senna and/or Colace. Take as directed on package. If you have not had a bowel movement in 3 days, try taking Miralax as directed on the package. All of these are available over the counter. Follow-up Follow up with Dr. Bassett in 2-3 weeks Please call if you are experiencing severe pain, numbness or tingling in hands and fingers, shortness of breath, nausea, vomiting, fever or have not had bowel movement in 4 days after surgery. Follow-up: Dorene Bassett MD [Staff Physician] - Yael Yen PA-C [Primary Care Provider] - Discharge Orders: Discharge Order (Routine); Ordered 03/21/24 Ordered By: Dorene Bassett
[2024-03-21 08:07] VITALS: RESP 18; O2SAT 98
[2024-03-21] MEDS: ATORVASTATIN CALCIUM 40 MG TABLET PO (09:22)
--- NOTE | 2024-03-21 11:44 | PC.NURSE ---
DC: Pt alert, oriented and vitally stable. Pt dressing C/D/I, ice pack to op site. Pt up independently in room. Pt on a regular diet and tolerates well. DC information given to pt, topics including follow up, medications and symptoms worsening. DC home with daughter?at 0950.?
== END 2024-03-21 09:50 | disposition home or self-care (01) ==
LOC: OR 08:45 → MEDSURG 08:47
PROVIDERS: PCP Physician Assistant Medical; Visit Provider Surgery
DX: E04.2 Nontoxic multinodular goiter (principal); R49.0 Dysphonia; N32.81 Overactive bladder; K21.9 Gastro-esophageal reflux disease without esophagitis; I25.10 Atherosclerotic heart disease of native coronary artery without angina pectoris; I44.1 Atrioventricular block, second degree; E78.00 Pure hypercholesterolemia, unspecified
CPT/HCPCS: 60220; 00300; 00320; 76998; 88307; 99100; A9270; J0330; J1171; J2250; J2371; J2704; J3010; J3490; J7120

== ENCOUNTER 2024-04-05 09:23 | Outpatient (CLI) | payer MEDICARE, SELFPAY | END 2024-04-05 09:24 | disposition home or self-care (01) | LOC: FRMREF 09:24 | PROVIDERS: PCP Physician Assistant Medical; Visit Provider Surgery | DX: E89.0 Postprocedural hypothyroidism (principal) | CPT/HCPCS: 84443 ==

== ENCOUNTER 2024-04-20 10:23 | Outpatient (CLI) | payer MEDICARE, SELFPAY | END 2024-04-20 10:24 | disposition home or self-care (01) | LOC: NFLDREF 04-21 22:38 | PROVIDERS: PCP Physician Assistant Medical; Referring Provider Physician Assistant Medical; Visit Provider Surgery | DX: E89.0 Postprocedural hypothyroidism (principal) | CPT/HCPCS: 84443 ==

== ENCOUNTER 2024-06-27 11:52 | Outpatient (CLI) | payer MEDICARE, SELFPAY | END 2024-06-27 11:53 | disposition home or self-care (01) | LOC: NFLDREF 06-28 03:14 | PROVIDERS: PCP Physician Assistant Medical; Referring Provider Physician Assistant Medical; Visit Provider Physician Assistant Medical | DX: I10 Essential (primary) hypertension (principal); E78.00 Pure hypercholesterolemia, unspecified; K21.9 Gastro-esophageal reflux disease without esophagitis; K44.9 Diaphragmatic hernia without obstruction or gangrene; M81.0 Age-related osteoporosis without current pathological fracture; R41.3 Other amnesia | CPT/HCPCS: 80053; 80061; 84443 ==

== ENCOUNTER 2025-03-27 07:36 | Outpatient (CLI) | payer MEDICARE, SELFPAY ==
--- NOTE | 2025-03-27 08:56 | P.ANES_ITS ---
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
--- NOTE | 2025-03-27 08:56 | W.ANESCHARGE ---
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
--- NOTE | 2025-03-27 09:39 | W.ANESCHARGE ---
Anesthesia Charges Start Date/Time Anesthesia Start Date: 03/27/25 Anesthesia Start Time: 08:05 Stop Date/Time Anesthesia Stop Date: 03/27/25 Anesthesia Stop Time: 08:53 Summary Extremes of Age - Over 70 or under 1: MDA Coding CPT Codes CPT Codes: ANES LWR INTST NDSC NOS - 20205 ([id number]) QK - ELECTRIC DISTRIBUTION CHECKER 2-4 CNCRNT ANES PROC, QX - BLEACHER SULFITE PULP SVC W/ MD MED DIRECTION, P3 - PATIENT W/SEVERE SYS DISEASE Additional Codes: Summary - Extremes of Age - Over 70 or under 1: MDA ([id number])
== END 2025-03-27 07:37 | disposition home or self-care (01) ==
LOC: OP CLINIC 07:38
PROVIDERS: PCP Physician Assistant Medical; Visit Provider Surgery
DX: D12.4 Benign neoplasm of descending colon (principal); K64.9 Unspecified hemorrhoids; K57.30 Diverticulosis of large intestine without perforation or abscess without bleeding; Z86.0100 Personal history of colon polyps, unspecified
CPT/HCPCS: 00811; 45385; 99100; J2704

== ENCOUNTER 2025-04-03 13:04 | Outpatient (CLI) | payer MEDICARE, SELFPAY ==
--- NOTE | 2025-04-03 13:45 | CRLHL7_ITS ---
For Patients: As a result of the Cures Act, medical imaging exams and procedure reports are released immediately into your electronic medical record. You may view this report before your referring provider. If you have questions, please contact your health care provider. INDICATION: Thyroid nodules, s/p right thyroidectomy COMPARISON: 08/04/2023, 07/07/2023, 12/04/2021 TECHNIQUE: Jackson scale and color Doppler images were acquired of the thyroid gland. FINDINGS: Status post right thyroidectomy. Left thyroid lobe measures 5.5 x 2.4 x 1.9 cm. The isthmus measures 4 millimeters. Solid and cystic nodule at the isthmus measures 1.7 x 0.9 x 1.3 cm, TR 3, not significantly changed. Additional solid and cystic nodule left thyroid lobe measures 1.7 x 0.9 x 1.5 cm, TR 3. Solid nodule left thyroid lobe measures 1.0 x 1.1 x 1.0 cm, TR 4. Mostly solid nodule left thyroid lobe measures 1.8 x 1.5 x 1.5 cm, TR 4, previously measuring 2.0 cm. The color Doppler images demonstrate normal vascularity. There is no evidence of cervical lymphadenopathy or parathyroid mass. IMPRESSION: Similar left-sided/isthmus thyroid nodules. Dictated by Aramis Orourke MD @ 04/03/2025 3:19:22 PM (Electronically Signed)
== END 2025-04-03 13:05 | disposition home or self-care (01) ==
LOC: US 13:05
PROVIDERS: PCP Physician Assistant Medical; Visit Provider Surgery
DX: E04.1 Nontoxic single thyroid nodule (principal)
CPT/HCPCS: 76536